=== PATIENT | female | born 1940 | race Caucasian/White ===

== ENCOUNTER 2016-06-29 06:14 | Day surgery (SDC) ==
[2015-08-06 12:17] VITALS: BMI 29.5
[2016-06-29] MEDS ORDERED: VERSED ONE (07:55)
[2016-06-29] MEDS ORDERED: DIPRIVAN 20 ML VIAL IVP ONE (07:55)
[2016-06-29 09:30] VITALS: BP 108/74; TEMP 98
--- NOTE | 2016-06-29 14:17 | OP ---
INDICATIONS FOR PROCEDURE: 75-year-old female presents for her first ever screening colonoscopy. She is also scheduled for endoscopy investigation of dysphagia. MEDICATIONS: SEE ANESTHESIA NOTES. PROCEDURE: 1 ENDOSCOPY WITH BIOPSY, MALAGASY DILATATION. 2. COLONOSCOPY, SNARE POLYPECTOMY REPORT: The risks, benefits, alternatives and limitations were discussed in detail with the patient. Informed consent was obtained. After adequate sedation was achieved, the video endoscope was introduced in the posterior pharynx and esophagus under direct vision. I easily advanced down to the second portion of the duodenum. I then slowly withdrew. The duodenal mucosa appeared unremarkable as did the duodenal bulb. The antrum and body were relatively unremarkable. The scope was retroflexed to look at the cardia and fundus which revealed a small hiatal hernia. The scope was anteflexed and withdrawn back through the esophagus. There is about a 2 cm hiatal hernia. In the distal esophagus there was a stricture at the GE junction and there was 2+ to 3+ esophageal inflammation. There were ulcerations, linear. This was biopsied for histological review. I advanced the scope back down the gastric lumen and I placed a guidewire. I then advanced a 48 Urdu [place] dilator. I met mild resistance. The patient tolerated the procedure well with stable vital signs and pulse oximetry throughout. The patient's bed was turned. A digital rectal exam revealed good tone, no masses. The colonoscope was introduced into the rectum, advanced under direct visual guidance to the cecum. The cecum was identified by the appendiceal orifice and IC valve. I then slowly withdrew the scope in a circumferential manner examining the mucosa quite carefully. I looked on the proximal and distal side of folds and flexures as best as possible. I retroflexed the scope in the right colon and left colon to increase visualization. In the cecum there is a diminutive polyp I destroyed by snare technique. In the ascending colon there were two polyps, one about 4 mm in size and the other one about 5 mm in size. They were removed by snare technique. The smaller one was destroyed. The slightly larger one was retrieved. In the proximal transverse colon there was a 6 mm slightly raised polyp that I removed by snare technique. This was retrieved. In the descending colon there is a 5 mm polyp that I removed by snare technique. It was not retrieved. At 15 cm there was a pedunculated 12 mm polyp that I removed by snare technique. This polyp was retrieved. No other abnormalities were noted other than small hemorrhoids on retroflex view of the anal canal. The prep was adequate. The withdrawal time was 16 minutes and 46 seconds. The patient tolerated the procedure well with stable vital signs and pulse oximetry throughout. IMPRESSION: 1. 2 TO 3+ REFLUX ESOPHAGITIS 2. DISTAL ESOPHAGEAL STRICTURE 3. SIX (6) COLON POLYPS REMOVED ABOVE 4. SMALL INTERNAL HEMORRHOIDS RECOMMENDATIONS: 1. Strict reflux precautions. 2. Daily PPI therapy. 3. Repeat endoscopy examination again in 3 months to assure resolution of the esophagitis and evaluate for Razo's and possible dilate further if indicated. 4. Await polyp pathology. If everything is benign as expected, I recommend repeat colonoscopy examination again in 3 years, sooner if signs or symptoms would indicate otherwise. 5. Office visit as needed. CC: DR. PATRICIA MARCH
== END 2016-06-29 10:00 | disposition home or self-care (01) ==
LOC: SURG 06:14
PROVIDERS: ATTEND Internal Medicine Gastroenterology
DX: Z12.11 Encounter for screening for malignant neoplasm of colon (principal); D12.2 Benign neoplasm of ascending colon; D12.3 Benign neoplasm of transverse colon; D12.7 Benign neoplasm of rectosigmoid junction; D13.0 Benign neoplasm of esophagus; R13.10 Dysphagia, unspecified; K21.0 Gastro-esophageal reflux disease with esophagitis; K44.9 Diaphragmatic hernia without obstruction or gangrene; K22.2 Esophageal obstruction; K64.8 Other hemorrhoids

== ENCOUNTER 2017-02-10 11:54 | Outpatient (CLI) ==
[2015-08-06 12:17] VITALS: BMI 29.5
--- NOTE | 2017-02-10 12:52 | DI ---
EXAM: Radiographs, lumbar spine HISTORY: Back pain. COMPARISON: Abdominal CT 04/12/2016. TECHNIQUE: Three views. FINDINGS: Left convex curvature centered near L3 noted. Alignment is normal. Vertebral body heigh ts are maintained. There is moderate to severe loss of disc height from L2-3 through L4-5. Multile trish endplate osteophyte formation and facet arthropathy noted. No fracture or subluxation detected. Sacral arcuate lines are intact. Atherosclerotic calcifications are present. IMPRESSION: 1. Left convex midlumbar curvature. 2. Moderate to severe degenerative disc disease. 3. Multilevel facet arthropathy.
--- NOTE | 2017-02-10 12:55 | DI ---
EXAM: Four views of the left knee HISTORY: Left knee pain with history of arthroplasties. COMPARISON: Right knee x-rays same day FINDINGS: Left knee arthroplasty changes are present. There is no loosening or hardware displacemen t. There is no displaced fracture or dislocation identified. Soft tissues are unremarkable. IMPRESSION: No acute abnormality of the left knee with no evidence of hardware loosening, abnormali ty or osseous fracture.
--- NOTE | 2017-02-10 12:59 | DI ---
EXAM: Radiographs, right knee HISTORY: Right knee pain. COMPARISON: None available. TECHNIQUE: Four views. FINDINGS: Right total knee arthroplasty hardware components appear well seated. No fracture or dis location identified. No localized soft tissue abnormality identified. IMPRESSION: No acute abnormality of the right knee.
== END 2017-02-10 11:55 | disposition home or self-care (01) ==
LOC: RAD 11:54
PROVIDERS: ATTEND Internal Medicine
DX: M54.9 Dorsalgia, unspecified (principal); M54.30 Sciatica, unspecified side; M79.606 Pain in leg, unspecified; M25.561 Pain in right knee; M25.562 Pain in left knee

== ENCOUNTER 2017-02-23 14:00 | Outpatient (RCR) ==
[2015-08-06 12:17] VITALS: BMI 29.5
--- NOTE | 2017-02-10 16:23 | RS.OPPTEV2 ---
Date of Note: 02/09/17 Visit #: 1 Date of Evaluation: 02/09/17 Payer Source: MEDICARE Treatment Diagnosis: LE weakness, recent falls History of Condition/Mechanism of Injury:: Patient reports having progressive weakness in her LE's. States she has fallen a few times inside and outside the home. Also reports progressive back pain. 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 No specific injuries to the legs or low back. Prior Level of Function.....Patient was independent with: ADL's, Self Care, Caregiving, Ambulation/Mobility, Community Integration/Access Functional Limitations: Standing, Ambulation, Community Access/Integration Current Subjective/complaints:: Patient reports she has weakness in the top of her thighs and the kness with give way. States the longer she stands or walks, the more her back hurts and LE's give weak. States approximately a week ago, she was attempting to walk across the street and her knees gave out and she fell in the middle of the street. States she has not tried an assistive device. Reports numbness and tingling in the feet. States she sometimes feels like she drags the left foot when she walks. States she has no tingling in the LE's prior to evaluation. States she usually is ok in sitting. Describes aching in the knees currently. States she is leaving the house less and less, because of having difficulty walking and fear of falling. Medical History Medical History: Hypertension Surgical History Comments:: Bilateral TKA Smoking Status: Never smoker Hx Home Medications: Gabapentin, Losartan, Bisoprolol Patient's Goals: Her goal is to gain strength in her legs and avoid falls. Pain Assessment - Pain Description Pain Location: Low back pain Current Pain Intensity: 9/10 Functional Outcome Measure LE Functional Scale: 27 (27/80=66.25% impairment) - G Codes & Severity Modifier G Codes & Modifier: Mobility current CL. Mobility goal CJ Source of G Code score: LE functional scale Observation - Observation Posture: Forward Head, Rounded Shoulders, Decreased Lumbar Lordosis Gait - Gait Pattern Gait Comments: Patient ambulates without an assistive device with a guarded gait. She demonstrates a narrow base of support and minimal clearance of either foot during swing phase. Demonstrtes no loss of balance during ambulation in the department. Sit to stand is independent, but appears difficult and cautious. General Range of Motion: Lumbar AROM is ~ 50% of normal range. Reports increased discomfort with extension. Bilateral LE AROM is WFL's. Muscle Strength: Trunk strength fair. Bilateral hip flexion 4 to 4+/5, quads and HS 4/5. Right ankle strength 4+/5, left ankle DF 3+ to -4/5, all else of left ankle 4/5. Sensation - Sensation Comments: Reports tingling along left medial ankle and foot. Additional Comments: Additional Comments: SLR bilaterally 30 degrees in supine. Interventions - Exercise/Activities/Manual Therapy Exercises/Activities: Patient given a straight cane to borrow for safety with ambulation. Instructed in proper usage. Patient instructed in sitting hip flexion and LAQ's for HEP. Manual Therapy: NA HOME EXERCISE PROGRAM: sitting hip flexion and LAQ's for HEP - Charges Total Direct Minutes: 55 mins Total Treatment Time: 55 mins Procedures billed for this date of service:: [facility] Assessment Assessment: Patient presents to therapy with a diagnosis of leg weakness. She reports recent falls due to progressive LE weakness when standing or walking. Also reports low back pain is increased with standing and walking. Demonstrates general weakness of bilateral LE's and trunk. Bilateral HS are significantly tight, increasing stress on the lumbar spine. She also exhibits sensory deficits in the left medial ankle and foot. She presents to have LE symptoms that are highly likely to be from the lumbar spine, such as with severe stenosis or spondylolisthesis. She will benefit from LE strengthening, along with HS stretching and trunk strengthening, to reduce her symptoms. She demonstrates good potential to gain strength, increased mobility, and decrease her risk for falls. Patient Education: Education of diagnosis, Body/Joint mechanics, Home Exercise Program, Home Safety, Activity Modification, Education of Plan of Care Rehab Potential: Good Short Term Goals Goal #1: Pt independent with HEP. Goal to be met by: 02/24/17 Goal #2: Bilateral SLR to 40 degrees in supine. Goal to be met by: 02/24/17 Goal #3: Bilateral hip flexion strength 4+/5 Goal to be met by: 02/24/17 Goal #4: Trunk strength improved to Fair +. 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 Goal to be met by: 03/22/17 Goal #3: Pt able to stand to perform ADL's with minimal back pain or LE symptoms. Goal to be met by: 03/22/17 Goal #4: Pt to amb. community distances with min. back pain and minimal difficulty. Goal to be met by: 03/22/17 Plan - Treatment to be Provided Procedures: Therapeutic Exercises, Therapeutic Activity, Patient Education Modalities: Electrical Stimulation, Ultrasound/Phonophoresis, Cryotherapy, Hot Packs - Treatment Plan Frequency: 2-3X week Duration: 4 weeks ORDER # VISITS AND/OR THROUGH DATE: 03/22/17 - Treatment Code (1) Leg weakness Qualifiers: Laterality: bilateral Qualified Description: Weakness of both lower extremities Qualifier Code(s): (R29.898) Other symptoms and signs involving the musculoskeletal system (2) Low back pain Qualifiers: Chronicity: unspecified Back pain laterality: bilateral Sciatica presence: unspecified whether sciatica present Qualified Description: Bilateral low back pain, unspecified chronicity, with sciatica presence unspecified Qualifier Code(s): (M54.5) Low back pain (3) History of recent fall Comments: Z91.81
--- NOTE | 2017-02-11 10:56 | RS.OPPTDN ---
Subjective Date of Note: 02/11/17 Visit #: 2 Date of Evaluation: 02/09/17 Payer Source: MEDICARE Treatment Diagnosis: LE weakness, recent falls Current Subjective/complaints:: Patient says that she is going to use her cane in community distances, but felt she did not need them here today. She says that her thighs feel very weak and hurt. She c/o pain more to the L low back than R. Pain Assessment - Pain Description Pain Location: Low back pain Current Pain Intensity: 10 - Treatment Modality: Electrical Stim Unattended (h) Parameters/Method Applied: hivolt 4 large pads controlled seperately @ 135-150 pk volts x 20 mins in supine to bilateral lumbar paraspinals Interventions - Exercise/Activities/Manual Therapy Exercises/Activities: Patient received passive bilateral hamstring and piriformis stretching, SKTC, trunk rotation x 4. Patient performs ball squeezes , alternate LE lift in hooklying. Total minutes of Exercise: 15 Manual Therapy: NA HOME EXERCISE PROGRAM: sitting hip flexion and LAQ's for HEP - Charges Total Direct Minutes: 15 Total Treatment Time: 35 Procedures billed for this date of service:: hp, estim (un), ex Assessment: Patient presents with independent amb shortened stride. She felt cane was not necessary today. She savanna modalities well. Patient required mod A with both LE's onto bed and with supine to sit. Patient demo very tight hamstrings bilaterally, moreso to the L. She has initiated HEP with muscle spasms that followed (at home). Patient Education: Education of diagnosis, Body/Joint mechanics, Home Exercise Program, Home Safety, Activity Modification, Education of Plan of Care Patient demonstrates compliance with HEP?: Yes Short Term Goals Goal #1: Pt independent with HEP. Goal to be met by: 02/24/17 Progress towards Goal:: Progressing Goal #2: Bilateral SLR to 40 degrees in supine. Goal to be met by: 02/24/17 Goal #3: Bilateral hip flexion strength 4+/5 Goal to be met by: 02/24/17 Goal #4: Trunk strength improved to Fair +. Goal to be met by: 02/24/17 Chief Strategy Officer Goals Goal #1: Pt knows HEP and to continue ex's to maintain functional level at D/C Goal to be met by: 03/22/17 Goal #2: Score on LE functional scale improved to <39% impairment. Goal to be met by: 03/22/17 Goal #3: Pt able to stand to perform ADL's with minimal back pain or LE symptoms. Goal to be met by: 03/22/17 Goal #4: Pt to amb. community distances with min. back pain and minimal difficulty. Goal to be met by: 03/22/17 Plan PLAN OF CARE EXPIRES ON:: 03/22/17 ORDER # VISITS AND/OR THROUGH DATE: 03/22/17 PLAN: Continue Plan of Care
--- NOTE | 2017-02-15 11:14 | RS.OPPTDN ---
Subjective Date of Note: 02/15/17 Visit #: 3 Date of Evaluation: 02/09/17 Payer Source: MEDICARE Treatment Diagnosis: LE weakness, recent falls Current Subjective/complaints:: Patient says she had some soreness to her legs after her last session. She asks if she can use a heating pad at home with exercises. Pain Assessment - Pain Description Pain Location: Low back pain Current Pain Intensity: 8/10 sore into R low back and leg - Treatment Modality: Electrical Stim Unattended Parameters/Method Applied: hivolt 4 large pads R side controlled seperately from L @ 165 pk volts to R and 150 to L x 20 mins Treatment Area: bilateral lumbar paraspinals Patient Position: Supine - Heat/Cryotherapy Treatment: Hot Pack (with estim) Interventions - Exercise/Activities/Manual Therapy Exercises/Activities: Patient received passive bilateral hamstring and piriformis stretching, SKTC, trunk rotation x 4. Patient performs ball squeezes , alternate LE lift in hooklying, isometric hip flexion and abd x 10. Total minutes of Exercise: 18 Manual Therapy: NA HOME EXERCISE PROGRAM: sitting hip flexion and LAQ's for HEP - Charges Total Direct Minutes: 18 Total Treatment Time: 38 Procedures billed for this date of service:: hp, estim (un), ex Assessment: Patient arrives with soreness across the low back, mainly to the R side affecting both knees (she indicates as joint ache). She appeared to savanna stretches well with only having general muscle fatigue with final activity ( isometric hip flexion). Patient Education: Education of diagnosis, Body/Joint mechanics, Home Exercise Program, Home Safety, Activity Modification, Education of Plan of Care Patient demonstrates compliance with HEP?: Yes Short Term Goals Goal #1: Pt independent with HEP. Goal to be met by: 02/24/17 Progress towards Goal:: Progressing Goal #2: Bilateral SLR to 40 degrees in supine. Goal to be met by: 02/24/17 Progress towards Goal:: Progressing Goal #3: Bilateral hip flexion strength 4+/5 Goal to be met by: 02/24/17 Goal #4: Trunk strength improved to Fair +. Goal to be met by: 02/24/17 Director Business Goals Goal #1: Pt knows HEP and to continue ex's to maintain functional level at D/C Goal to be met by: 03/22/17 Goal #2: Score on LE functional scale improved to <39% impairment. Goal to be met by: 03/22/17 Goal #3: Pt able to stand to perform ADL's with minimal back pain or LE symptoms. Goal to be met by: 03/22/17 Goal #4: Pt to amb. community distances with min. back pain and minimal difficulty. Goal to be met by: 03/22/17 Plan PLAN OF CARE EXPIRES ON:: 03/22/17 ORDER # VISITS AND/OR THROUGH DATE: 03/22/17 PLAN: Progress Exercises
--- NOTE | 2017-02-17 10:53 | RS.OPPTDN ---
Subjective Date of Note: 02/17/17 Visit #: 4 Date of Evaluation: 02/09/17 Payer Source: MEDICARE Treatment Diagnosis: LE weakness, recent falls Current Subjective/complaints:: Patient says she felt so good with her back and increased energy that she was able to bake. She reports that she barely noticed any back pain today. Pain Assessment - Pain Description Pain Location: Low back pain Current Pain Intensity: "I barely notice any pain in my back" - Treatment Modality: Electrical Stim Unattended Parameters/Method Applied: hivolt 4 large pads @ 175 pk volts x 20 mins to mid to lower lumbar parspinals. Patient Position: Supine - Heat/Cryotherapy Treatment: Hot Pack Interventions - Exercise/Activities/Manual Therapy Exercises/Activities: Patient received passive bilateral hamstring and piriformis stretching, SKTC, trunk rotation, Figure4 x 4. Patient performs ball squeezes, alternate LE lift in hooklying, isometric hip flexion and abd x 10. Initiated bridging 2x5. Total minutes of Exercise: 17 Manual Therapy: NA HOME EXERCISE PROGRAM: sitting hip flexion and LAQ's for HEP - Charges Total Direct Minutes: 17 Total Treatment Time: 37 Procedures billed for this date of service:: hp, estim (un), ex Assessment: Patient presents with decreased back pain allowing her to perform more functional activities at home and bake without expected pain. She has experienced increased energy at the start of the day, which she did not have previously. She is also demonstrating improved flexibility bilaterally regarding HS. Patient Education: Education of diagnosis, Body/Joint mechanics, Home Exercise Program, Home Safety, Activity Modification, Education of Plan of Care Patient demonstrates compliance with HEP?: Yes Short Term Goals Goal #1: Pt independent with HEP. Goal to be met by: 02/24/17 Progress towards Goal:: Progressing Goal #2: Bilateral SLR to 40 degrees in supine. Goal to be met by: 02/24/17 Progress towards Goal:: Progressing Goal #3: Bilateral hip flexion strength 4+/5 Goal to be met by: 02/24/17 Progress towards Goal:: Progressing Goal #4: Trunk strength improved to Fair +. Goal to be met by: 02/24/17 Senior Care Goals Goal #1: Pt knows HEP and to continue ex's to maintain functional level at D/C Goal to be met by: 03/22/17 Progress towards goal: Progressing Goal #2: Score on LE functional scale improved to <39% impairment. Goal to be met by: 03/22/17 Goal #3: Pt able to stand to perform ADL's with minimal back pain or LE symptoms. Goal to be met by: 03/22/17 Goal #4: Pt to amb. community distances with min. back pain and minimal difficulty. Goal to be met by: 03/22/17 Plan PLAN OF CARE EXPIRES ON:: 03/22/17 ORDER # VISITS AND/OR THROUGH DATE: 03/22/17 PLAN: Progress Exercises
--- NOTE | 2017-02-23 16:29 | RS.OPPTDN ---
Subjective Date of Note: 02/23/17 Visit #: 5 Date of Evaluation: 02/09/17 Payer Source: MEDICARE Treatment Diagnosis: LE weakness, recent falls Current Subjective/complaints:: Patient says she feels she is gaining strength, but says her back is bothering her today. 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 She says she does have some trouble with going up/down steps. Pain Assessment - Pain Description Pain Location: Low back pain - Treatment Modality: Electrical Stim Unattended Parameters/Method Applied: Hivolt 4 large pads @ 165 pk volts x 20 mins to bilateral lumbar paraspinals. Controlled seperately L from R. Patient Position: Supine - Heat/Cryotherapy Treatment: Hot Pack Interventions - Exercise/Activities/Manual Therapy Exercises/Activities: Patient received passive bilateral hamstring and piriformis stretching, SKTC, trunk rotation, Figure4 x 4. Patient performs ball squeezes, alternate LE lift in hooklying, isometric hip flexion and abd x 10. SAQ 1 1/2#, DF with red tband 2x10. Continued with bridging 2x5. Total minutes of Exercise: 22 Manual Therapy: NA HOME EXERCISE PROGRAM: sitting hip flexion and LAQ's for HEP - Charges Total Direct Minutes: 22 Total Treatment Time: 42 Procedures billed for this date of service:: hp, estim (un), ex Assessment: Patient remains with moderate back pain that is influencing her gait. She is having trouble with ascending/descending stairs at home. She was instructed in proper step sequencing, but will be demonstrating this at next visit with cueing if needed. Patient did have reduced pain to her back upon leaving today and appears more steady as a result. No signs of dizziness from patient and bed mobs (supine to sit) require only light hand held assistance from CORPORATE ETHICS OFFICER. Patient instructed in log rolling for home to improve supine to sit. Patient Education: Education of diagnosis, Body/Joint mechanics, Home Exercise Program, Home Safety, Activity Modification, Education of Plan of Care Patient demonstrates compliance with HEP?: Yes Short Term Goals Goal #1: Pt independent with HEP. Goal to be met by: 02/24/17 Progress towards Goal:: Progressing Goal #2: Bilateral SLR to 40 degrees in supine. Goal to be met by: 02/24/17 Progress towards Goal:: Progressing Goal #3: Bilateral hip flexion strength 4+/5 Goal to be met by: 02/24/17 Progress towards Goal:: Progressing Goal #4: Trunk strength improved to Fair +. Goal to be met by: 02/24/17 Hotel Front Desk Clerk Goals Goal #1: Pt knows HEP and to continue ex's to maintain functional level at D/C Goal to be met by: 03/22/17 Progress towards goal: Progressing Goal #2: Score on LE functional scale improved to <39% impairment. Goal to be met by: 03/22/17 Goal #3: Pt able to stand to perform ADL's with minimal back pain or LE symptoms. Goal to be met by: 03/22/17 Goal #4: Pt to amb. community distances with min. back pain and minimal difficulty. Goal to be met by: 03/22/17 Plan PLAN OF CARE EXPIRES ON:: 03/22/17 ORDER # VISITS AND/OR THROUGH DATE: 03/22/17 PLAN: Progress Exercises (Demo stair training next session with modalities to control and decrease back pain)
== END 2017-02-24 ==
PROVIDERS: ATTEND Internal Medicine
DX: M62.81 Muscle weakness (generalized) (principal)

== ENCOUNTER 2017-03-15 10:00 | Outpatient (RCR) ==
[2015-08-06 12:17] VITALS: BMI 29.5
--- NOTE | 2017-02-25 14:37 | RS.CXNS ---
Date of scheduled appointment: 02/25/17 Type: Cancel Reason for Cancel/NS: Patient says she cannot get her car started
--- NOTE | 2017-03-04 16:15 | RS.OPPTDN ---
Subjective Date of Note: 03/04/17 Visit #: 7 Date of Evaluation: 02/09/17 Payer Source: MEDICARE Treatment Diagnosis: LE weakness, recent falls Current Subjective/complaints:: Patient says she still has stiffness and elevated pain to the low back, mostly focused at the L LB. She says she had to work everyday last week at the [employer] and has to sit with a client tomorrow also. Pain Assessment - Pain Description Pain Location: Low back pain Current Pain Intensity: elevated pain and stiffness to the knees and back - Treatment Modality: Ultrasound Parameters/Method Applied: continuous @ 1.6 w/cm2 x 12 mins to L lumbar paraspinals mostly, then to R Patient Position: Right Sidelying - Heat/Cryotherapy Treatment: Hot Pack (x 15 mins to low back in supine) Interventions - Exercise/Activities/Manual Therapy Exercises/Activities: Patient performs: QS, SAQ 2 1/2#, DF with green tband, ball squeezes, isometric hip abd, 2 1/2# each LE alternate lift 2x10. Patient educated about these exercises at home and using hands to push off from bed. Total minutes of Exercise: 16 Manual Therapy: NA HOME EXERCISE PROGRAM: sitting hip flexion and LAQ's for HEP - Charges Total Direct Minutes: 28 Total Treatment Time: 43 Procedures billed for this date of service:: hp, u/s, ex Assessment: Patient's treatment was modified from estim to u/s to verify any improvement with pain. She has had unchanged pain and stiffness all this week. She admitted improved symptoms following u/s today. She should benefit from further modalities and therex next week. Patient Education: Body/Joint mechanics, Home Exercise Program Short Term Goals Goal #1: Pt independent with HEP. Goal to be met by: 02/24/17 Progress towards Goal:: Progressing Goal #2: Bilateral SLR to 40 degrees in supine. Goal to be met by: 02/24/17 Progress towards Goal:: Progressing Goal #3: Bilateral hip flexion strength 4+/5 Goal to be met by: 02/24/17 Progress towards Goal:: Progressing Goal #4: Trunk strength improved to Fair +. Goal to be met by: 02/24/17 Electrical Accessories I Assembler Goals Goal #1: Pt knows HEP and to continue ex's to maintain functional level at D/C Goal to be met by: 03/22/17 Progress towards goal: Progressing Goal #2: Score on LE functional scale improved to <39% impairment. Goal to be met by: 03/22/17 Goal #3: Pt able to stand to perform ADL's with minimal back pain or LE symptoms. Goal to be met by: 03/22/17 Goal #4: Pt to amb. community distances with min. back pain and minimal difficulty. Goal to be met by: 03/22/17 Plan PLAN OF CARE EXPIRES ON:: 03/22/17 ORDER # VISITS AND/OR THROUGH DATE: 03/22/17 PLAN: Progress Exercises (continue with u/s)
--- NOTE | 2017-03-04 16:18 | RS.OPPTDN ---
Subjective Date of Note: 03/02/17 Visit #: 6 Date of Evaluation: 02/09/17 Payer Source: MEDICARE Treatment Diagnosis: LE weakness, recent falls Current Subjective/complaints:: Patient says she is hurting in her knees and back today. She says that she is unsure why. She says she is using her cane at home, but encouraged her to use it more out in the community (as she is unsteady walking to our department.) Pain Assessment - Pain Description Pain Location: Low back pain Current Pain Intensity: elevated pain to the knees and back - Treatment Modality: Electrical Stim Unattended Parameters/Method Applied: bilateral lumbar paraspinals and superior glutes hivolt 4 large pads @ 145 pk volts x 20 mins Patient Position: Supine - Heat/Cryotherapy Treatment: Hot Pack Interventions - Exercise/Activities/Manual Therapy Exercises/Activities: Patient received passive bilateral hamstring and piriformis stretching, SKTC, trunk rotation, Figure4 x 4. Patient performs ball squeezes, alternate LE lift in hooklying, isometric hip flexion and abd x 10. SAQ 1 1/2#, DF with red tband 2x10. Continued with bridging 2x5. Total minutes of Exercise: 16 Manual Therapy: NA HOME EXERCISE PROGRAM: sitting hip flexion and LAQ's for HEP - Charges Total Direct Minutes: 16 Total Treatment Time: 36 Procedures billed for this date of service:: hp, estim (un), ex Assessment: Patient remains with moderate pain and stiffness limiting her gait. She was encouraged to use her cane to assist with pain. May modify treatment to u/s next session. Patient Education: Home Exercise Program Patient demonstrates compliance with HEP?: Yes Short Term Goals Goal #1: Pt independent with HEP. Goal to be met by: 02/24/17 Progress towards Goal:: Progressing Goal #2: Bilateral SLR to 40 degrees in supine. Goal to be met by: 02/24/17 Progress towards Goal:: Progressing Goal #3: Bilateral hip flexion strength 4+/5 Goal to be met by: 02/24/17 Progress towards Goal:: Progressing Goal #4: Trunk strength improved to Fair +. Goal to be met by: 02/24/17 Half-Way Goals Goal #1: Pt knows HEP and to continue ex's to maintain functional level at D/C Goal to be met by: 03/22/17 Progress towards goal: Progressing Goal #2: Score on LE functional scale improved to <39% impairment. Goal to be met by: 03/22/17 Goal #3: Pt able to stand to perform ADL's with minimal back pain or LE symptoms. Goal to be met by: 03/22/17 Goal #4: Pt to amb. community distances with min. back pain and minimal difficulty. Goal to be met by: 03/22/17 Plan PLAN OF CARE EXPIRES ON:: 03/22/17 ORDER # VISITS AND/OR THROUGH DATE: 03/22/17 PLAN: Progress Exercises (may change to u/s next session)
--- NOTE | 2017-03-08 10:47 | RS.CXNS ---
Date of scheduled appointment: 03/08/17 Type: No Show Reason for Cancel/NS: poss schedule mistake
--- NOTE | 2017-03-10 15:02 | RS.OPPTDN ---
Subjective Date of Note: 03/10/17 Visit #: 8 Date of Evaluation: 02/09/17 Payer Source: MEDICARE Treatment Diagnosis: LE weakness, recent falls Current Subjective/complaints:: Patient says that her pain has been more the past few days. She says she forgot her session earlier this week due to sister coming in from [place]. 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 But, patient does say she feels U/s did help after her last session. Pain Assessment - Pain Description Pain Location: Low back pain Current Pain Intensity: elevated pain to the knees and back - Treatment Modality: Ultrasound Parameters/Method Applied: continuous @ 1.6 w/cm2 x 12 mins to the L lumbar paraspinals and L superior glut. - Heat/Cryotherapy Treatment: Hot Pack (20 mins to the L lumbar and glut in sidelying) Interventions - Exercise/Activities/Manual Therapy Exercises/Activities: Patient received passive bilateral hamstring and piriformis stretching, SKTC, trunk rotation, Figure4 x 4. Patient performs ball squeezes, alternate LE lift in hooklying, isometric hip flexion and abd x 10. SAQ 1 1/2#, DF with red tband 2x10. Continued with bridging 2x5. 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 She has had elevated pain to her back and at times (with prolonged amb/standing) pain will travel to the L thigh/knee. She recalls improved pain with changing treatment to u/s last session and today. She remains with tight L HS, but is now using her straight cane to/from PT for support. Patient Education: Education of diagnosis, Body/Joint mechanics, Home Exercise Program, Home Safety, Activity Modification, Education of Plan of Care Patient demonstrates compliance with HEP?: Yes (partially) Short Term Goals Goal #1: Pt independent with HEP. Goal to be met by: 02/24/17 Progress towards Goal:: Progressing Goal #2: Bilateral SLR to 40 degrees in supine. Goal to be met by: 02/24/17 Progress towards Goal:: Progressing Goal #3: Bilateral hip flexion strength 4+/5 Goal to be met by: 02/24/17 Progress towards Goal:: Progressing Goal #4: Trunk strength improved to Fair +. Goal to be met by: 02/24/17 Tree Warden Goals Goal #1: Pt knows HEP and to continue ex's to maintain functional level at D/C Goal to be met by: 03/22/17 Progress towards goal: Progressing Goal #2: Score on LE functional scale improved to <39% impairment. Goal to be met by: 03/22/17 Goal #3: Pt able to stand to perform ADL's with minimal back pain or LE symptoms. Goal to be met by: 03/22/17 Goal #4: Pt to amb. community distances with min. back pain and minimal difficulty. Goal to be met by: 03/22/17 Plan PLAN OF CARE EXPIRES ON:: 03/22/17 ORDER # VISITS AND/OR THROUGH DATE: 03/22/17 PLAN: Progress Exercises
--- NOTE | 2017-03-15 10:52 | RS.CSNOTE ---
PT Case Note Date of Note: 03/15/17 Title of document: Hold Note: Patient presents to department today reporting her pain is getting worse and she feels like she is worse in general. States she was in bed most of the weekend due to pain and weakness. Patients Lower Extremity Functional Scale score has marked decrease to 7/80 or 91.25% impairment today (was 27/80 or 66.25 % on Eval). Physicians office was contacted and patient was told to go directly to office to be seen by physician. Patient will be on hold at this time.
[2017-03-18 15:47] VITALS: BMI 28.3
== END 2017-03-26 ==
PROVIDERS: ATTEND Internal Medicine
DX: R53.1 Weakness (principal)

== ENCOUNTER 2017-03-15 12:35 | Inpatient (IN) | payer OTHER ==
[2017-03-15] MEDS ORDERED: TORADOL IVP PRN (13:06)
[2017-03-15] MEDS ORDERED: DECADRON 4 MG/ML SDV IVP STA (13:07)
[2017-03-15 13:21] VITALS: BMI 28.5
[2017-03-15] MEDS ORDERED: TORADOL IVP SCH (13:30)
[2017-03-15 13:32] LABS: BASOPHILS % (AUTO) 0.6 % (0.0-3.0); EOSINOPHILS # (AUTO) 0.1 K/ul (0.0-0.7); EOSINOPHILS % (AUTO) 2.2 % (0.0-7.0); HEMATOCRIT 35.9 % (37.0-47.0); HEMOGLOBIN 12.2 g/dl (12.0-16.0); IMMATURE GRANULOCYTE % (AUTO) 0.2 % (0.0-5.0); LYMPHOCYTES # (AUTO) 1.8 K/uL (0.60-3.4); LYMPHOCYTES % (AUTO) 27.3 (10.0-50.0); MEAN CORPUSCULAR HEMOGLOBIN 30.3 pg (27.0-31.0); MEAN CORPUSCULAR VOLUME 89.3 fl (81.0-99.0); MONOCYTES # (AUTO) 0.5 K/uL (0.4-2.0); MONOCYTES % (AUTO) 7.2 (0-10); NEUTROPHILS # (AUTO) 4.1 K/ul (2.0-6.9); NEUTROPHILS % (AUTO) 62.5; PLATELET COUNT 177 10^3/uL (140-440); RED BLOOD COUNT 4.02 10^6/ul (4.20-5.40); WHITE BLOOD COUNT 6.49 K/ul (4.6-10.2)
[2017-03-15 15:35] LABS: ALBUMIN 3.7 g/dL (3.4-5.0); ALBUMIN/GLOBULIN RATIO 1.06; BILIRUBIN,TOTAL 0.35 mg/dL (0.00-1.20); BUN/CREATININE RATIO 19.12; CALCIUM 9.3 mg/dL (8.2-10.2); CREATININE 1.83 mg/dL (0.60-1.30); TOTAL PROTEIN 7.2 g/dL (5.8-8.1)
[2017-03-15 15:39] LABS: BILIRUBIN,URINE Negative (NEGATIVE); KETONES,URINE Trace (NEGATIVE); LEUKOCYTE ESTERASE ,URINE 1+ (NEGATIVE); NITRITE,URINE Positive (NEGATIVE); PH,URINE 5.5 (5-9); PROTEIN,URINE 1+ (NEGATIVE); URINE, BLOOD 2+ (NEGATIVE)
[2017-03-15 15:47] LABS: ADD URINE MICROSCOPIC YES
[2017-03-15 15:48] LABS: BACTERIA,URINE 3+ (NOT PRESENT)
[2017-03-15] MEDS ORDERED: DILAUDID 2 MG/ML SYRINGE IM PRN (17:37)
[2017-03-15] MEDS ORDERED: DILAUDID 2 MG/ML SYRINGE ONE (17:46)
[2017-03-15] MEDS ORDERED: DILAUDID 2 MG/ML SYRINGE IVP PRN (17:49)
[2017-03-15] MEDS: NEURONTIN PO SCH (21:27)
[2017-03-15] MEDS: DESYREL PO SCH (21:27)
[2017-03-15] MEDS: TORADOL IVP SCH (21:28)
[2017-03-16 05:01] LABS: HEMATOCRIT 34.6 % (37.0-47.0); HEMOGLOBIN 11.8 g/dl (12.0-16.0); IMMATURE GRANULOCYTE % (AUTO) 0.4 % (0.0-5.0); LYMPHOCYTES # (AUTO) 0.7 K/uL (0.60-3.4); LYMPHOCYTES % (AUTO) 14.6 (10.0-50.0); MEAN CORPUSCULAR HEMOGLOBIN 29.9 pg (27.0-31.0); MEAN CORPUSCULAR HGB CONC 34.1 (31.8-35.4); MEAN CORPUSCULAR VOLUME 87.8 fl (81.0-99.0); MONOCYTES # (AUTO) 0.1 K/uL (0.4-2.0); MONOCYTES % (AUTO) 1.5 (0-10); NEUTROPHILS # (AUTO) 3.9 K/ul (2.0-6.9); NEUTROPHILS % (AUTO) 83.5; PLATELET COUNT 171 10^3/uL (140-440); RED BLOOD COUNT 3.94 10^6/ul (4.20-5.40); WHITE BLOOD COUNT 4.72 K/ul (4.6-10.2)
[2017-03-16 05:20] LABS: ALBUMIN 3.5 g/dL (3.4-5.0); ALBUMIN/GLOBULIN RATIO 1.09; BILIRUBIN,TOTAL 0.31 mg/dL (0.00-1.20); BUN/CREATININE RATIO 22.92; CALCIUM 9.3 mg/dL (8.2-10.2); CREATININE 1.57 mg/dL (0.60-1.30); TOTAL PROTEIN 6.7 g/dL (5.8-8.1)
[2017-03-16] MEDS: PROTONIX PO SCH (05:39)
[2017-03-16] MEDS: TORADOL IVP SCH ×3 (05:40→20:49)
--- NOTE | 2017-03-16 08:21 | DI ---
Exam: Chest two-view HISTORY: Coughing. Comparison: 04/12/2016. FINDINGS: Two views of the chest demonstrate moderately expanded lungs with no evidence of pneumonia or edema. Right apical pleural parenchymal thickening is again noted.The heart is normal in size an d configuration. The thoracic aorta is partially calcified. Calcified granulomata are noted. The pu lmonary vasculature is not congested. The skeletal structures are intact. There are degenerative fin dings in the spine. IMPRESSION: No acute cardiopulmonary disease. Atherosclerosis and prior granulomatosis.
[2017-03-16] MEDS: ASPIRIN CHEWABLE PO SCH (08:57)
[2017-03-16] MEDS: LEXAPRO PO SCH (08:58)
[2017-03-16] MEDS: HYDROCHLOROTHIAZIDE PO SCH (08:58)
[2017-03-16] MEDS: COZAAR PO SCH (08:59)
[2017-03-16] MEDS: ZEBETA PO SCH (08:59)
[2017-03-16] MEDS ORDERED: LIPITOR PO SCH (09:00)
[2017-03-16] MEDS ORDERED: DECADRON 4 MG/ML SDV IVP ONE (09:00)
[2017-03-16] MEDS ORDERED: NON-FORMULARY MEDICATION (Losartan/Hydrochlorothiazide [Hyzaar 100-12.5 Tablet] 1 EACH) PO SCH ×22 (09:00)
--- NOTE | 2017-03-16 11:12 | PCM.PROG ---
Attending Provider: ATTENDING PROVIDER: Dr. YUE GOMEZ DATE OF SERVICE: 03/16/17 SUBJECTIVE: This 76 year old WHITE/ F was hospitalized 03/15/17. The patient is hospitalized with bilateral sciatica type of pain with leg weakness. The patient still has pain rated as 2 to 9 on a scale of 1 to 10. The patient has mild depression and is teary with any conversation related to back problems, which according to son has been going on for a few months and now to the point she is unable to ambulate without a walker and even with walker is unsteady. REVIEW OF SYSTEMS: CONSTITUTIONAL: No night sweats. No fatigue, malaise, lethargy. No fever or chills. HEENT: Eyes: No visual changes. No eye pain. No eye discharge. ENT: No runny nose. No epistaxis. No sinus pain. No odynophagia. No congestion. RESPIRATORY: No cough, no congestion. No hemoptysis. No shortness of breath. CARDIOVASCULAR: No angina symptoms. No CHF symptoms. No atypical chest pain for CAD. No palpitations. No orthopnea.. GASTROINTESTINAL: No abdominal pain. No nausea or vomiting. No diarrhea or constipation. No hematemesis. No hematochezia. GENITOURINARY: No urgency. No frequency. No dysuria. No hematuria. No obstructive symptoms. No discharge. No pain. No significant abnormal bleeding. MUSCULOSKELETAL: Sciatic type pain and weakness. NEUROLOGICAL: Awake, alert, oriented to time, place and person. No headache. No neck pain. No syncope. No seizures. No dizziness. PSYCHIATRIC: Not anxious. Mild depression. No suicidal thoughts. No homicidal thoughts. SKIN: No rash. No lesions. No wounds. ENDOCRINE: No unexplained weight loss. No weight gain. HEMATOLOGIC/LYMPHATIC: No anemia. No purpura. No petechiae. No prolonged or excessive bleeding. No palpable lymph nodes. PHYSICAL EXAMINATION: GENERAL: The patient is awake, alert and oriented, lying in bed in no distress. VITAL SIGNS: Temperature 97.7 F, Pulse 55, Respiratory Rate 16, BP 157/70, Pulse Ox 97% HEENT: Head normocephalic, atraumatic. Eyes: Extraocular muscles are intact. Pupils are equal, round and reactive to light and accommodation. Ears: No lesions. Nose appeared normal. Throat: No exudate or erythema. NECK: Supple. No JVD, no carotid bruit. No lymphadenopathy or thyromegaly. LUNGS: Clear to auscultation. Percussion note normal. Chest symmetrical. HEART: S1, S2, no S3. No murmurs. No cyanosis or clubbing. No ascites. Pulses: Dorsalis pedis and posterior tibial pulses +1 to +2 both sides. ABDOMEN: Soft. Non-tender. Bowel sounds active. No CVA tenderness. No mass felt. EXTREMITIES: No edema. Full range of motion of all extremities, equal. NEUROLOGIC: No focal deficit. Cranial nerves II through XII are grossly intact. No headache, no double vision or headache. SKIN: Not dry. Intact. Turgor-normal. LYMPHATIC: No palpable lymph nodes/no lymphedema. MUSCULOSKELETAL: Normal joints with no swelling. Muscle tone is normal. LAB REVIEW: 03/16/17 04:50 03/16/17 04:50 03/16/17 04:50: Sodium 134 L, Potassium 4.0, Chloride 103, Carbon Dioxide 22 L, Anion Gap 13.0, BUN 36 H, Creatinine 1.57 H, Estimated GFR (MDRD) 32.00, BUN/ Creatinine Ratio 22.92, Glucose 132 H, Calcium 9.3, Total Bilirubin 0.31, AST 13 L, ALT 13, Alkaline Phosphatase 76, Total Protein 6.7, Albumin 3.5, Globulin 3.2, Albumin/Globulin Ratio 1.09 03/16/17 04:50: WBC 4.72, RBC 3.94 L, Hgb 11.8 L, Hct 34.6 L, MCV 87.8, MCH 29.9 , MCHC 34.1, RDW Coeff of [place] 12.2, Plt Count 171, Immature Gran % (Auto) 0.4, Neut % (Auto) 83.5, Lymph % (Auto) 14.6, [place] % (Auto) 1.5, Eos % (Auto) 0.0, Baso % (Auto) 0.0, Immature Gran # (Auto) 0.0, Neut # 3.9, Lymph # 0.7, [place] # 0.1 L, Eos # 0.0, Baso # 0.0 03/15/17 13:50: Urine Color Yellow, Urine Clarity Cloudy, Urine pH 5.5, Ur Specific [place] 1.025, Urine Protein 1+, Urine Glucose (UA) Negative, Urine Ketones Trace, Urine Blood 2+, Urine Nitrite Positive, Urine Bilirubin Negative , Urine Urobilinogen 0.2, Ur Leukocyte Esterase 1+, Urine Microscopic RBC 10-20 , Urine Microscopic WBC 30-50, Ur Squamous Epith Cells Not present, Urine Bacteria 3+, Urine Mucus 2+ 03/15/17 13:26: Sodium 138, Potassium 4.0, Chloride 105, Carbon Dioxide 24, Anion Gap 13.0, BUN 35 H, Creatinine 1.83 H, Estimated GFR (MDRD) 27.00, BUN/ Creatinine Ratio 19.12, Glucose 108, Calcium 9.3, Total Bilirubin 0.35, AST 14 L , ALT 14, Alkaline Phosphatase 84, Total Protein 7.2, Albumin 3.7, Globulin 3.5 , Albumin/Globulin Ratio 1.06, TSH 1.983 03/15/17 13:26: WBC 6.49, RBC 4.02 L, Hgb 12.2, Hct 35.9 L, MCV 89.3, MCH 30.3, MCHC 34.0, RDW Coeff of [place] 12.4, Plt Count 177, Immature Gran % (Auto) 0.2, Neut % (Auto) 62.5, Lymph % (Auto) 27.3, [place] % (Auto) 7.2, Eos % (Auto) 2.2, Baso % (Auto) 0.6, Immature Gran # (Auto) 0.0, Neut # 4.1, Lymph # 1.8, [place] # 0.5, Eos # 0.1, Baso # 0.0 ASSESSMENT: 1. Bilateral sciatica awaiting report from MRI 2. Continue steroids and antiinflammatories PLAN: 1. Continue steroids and antiinflammatories Plan and coordination of the patient's care discussed in the presence of Rn Unit Manager and nurse. CONDITION: Stable SCRIBED BY: YANA HAZEL, Fast Food Server scribed while in presence of service performed by Dr. YUE GOMEZ on 03/16/17 ([id number])
--- NOTE | 2017-03-16 14:26 | RS.OTINEVL ---
Subjective - Patient information Date of Evaluation: 03/16/17 Date of Arrival on Unit: 03/15/17 Usual Living Arrangement: Alone Living Arrangement Comments: Lives at home alone in town. Home Environment: House Medical History: Hypertension Medical History Comments:: Bilateral sciatic pain with left leg weakness, fell in bathroom, DVT/PE, DNR, appendectomy, diverticulosis, UTI, depression, psych. disorder, total hysterectomy, alcohol occas., Surgical History: Knee Replacement, Hysterectomy Surgical History Comments:: bilateral mastectomy, Appendectomy, bilateral TKA, hysterectomy Subjective Information/ Patient Comments:: My and then my brothers moved me down here thinking they would take care of me. Now my legs don't work. They are jumping. I got a shot." - Level of function Current Equipment Used at Home: standard cane Pain Assessment - Pain Pain Score: 4 Side: bilateral Pain Location Body Site: leg weakness and pain Pain Aggravating Factors: ADL's, Changing Position, Sitting Pain Alleviating Factors: Ice, Medication, Position Change Interventions - Objective Patient Orientation: Person, Place, Time, Situation Current Interventions: IV's Observation: Pt appears depressed and is weak in BUE. Pt would benefit from skilled OT to increase independence of self care management. Interventions - ROM Right Upper Extremity AROM: WFL's Left Upper Extremity AROM: WFL's - Strength Right Upper Extremity Strength: Mild Weakness Left Upper Extremity Strength: Mild Weakness - Sensation Right Upper Extremity Sensation: Intact/Normal Left Upper Extremity Sensation: Intact/Normal Balance - Sitting Balance Static Sitting Balance: Normal Dynamic Sitting Balance: Normal - Standing Balance Static Standing Balance: Fair Dynamic Standing Balance: Poor - Comments Balance Assessment Comments: Pt has difficulty with balance and movement of BLE during transfers. ADL Skills - Self Feeding Self Feeding: Independent - Grooming Grooming: Set Up Only - Bathing Bathing UE: Set Up Only Bathing LE: Min Assist - Dressing Dressing UE: Set Up Only Dressing LE: Min Assist - Toilet Management Toileting Management: Mod Assist, Max Assist, 2 person assist Functional Mobility - Bed Mobility Rolling R/L: Min Assist Scooting: CGA Supine to Sit: Mod Assist Sit to Supine: Mod Assist - Transfers Sit to Stand: Mod Assist, 2 person assist - Ambulation Weight Bearing Status: FWB Assistive Device Used: Rolling Walker Assistance needed with Ambulation: Mod Assist, 2 person assist - Safety Awareness Safety Awareness: Good Additional Treatment Performed - Time with patient Total treatment time: 27 Activities Patient Interests:: Watching Television Patient Education Patient Education: Education of diagnosis, Home Exercise Program, Home Safety, Education of Plan of Care Teaching Recipient: Patient Teaching Methods: Discussion, Demonstration Assessment Problem List:: Decreased level of function, Requires training/education, Decreased safety/Risk of falls, Weakness, Pain limits previous level of function Rehab Potential: Good Further Therapy Indicated?: Yes Short Term Goals - Goals GOAL 1: Pt to be Minimal assist with transfers with rolling Walker. Goal to be met by: 03/23/17 GOAL 2: Pt to tolerate sink level ADLS Minimal assistance with RW. Goal to be met by: 03/23/17 GOAL 3: Pt to increase activity tolerance to 15 minutes. Goal to be met by: 03/23/17 Cut Off Saw Operator Goals GOAL 1: Pt to be CGA assist with transfers with rolling Walker. Goal to be met by: 03/30/17 GOAL 2: Pt to tolerate sink level ADLS SUP assistance with RW. Goal to be met by: 03/30/17 GOAL 3: Pt to be independent with ADLS as in PLOF. Goal to be met by: 03/30/17 Plan Plan of Care: Therapeutic EX, Neuromuscular Re-Educ, Therapeutic Activity, Self- Care/Home Management Modalities: Cold Pack/Cryotherapy Frequency of Treatment: 1-2 X day, as tolerated Duration of Treatment: 2 Weeks Anticipated Discharge Destination: Home
--- NOTE | 2017-03-16 15:59 | MRI ---
EXAM: Lumbar spine MRI without contrast. HISTORY: Bilateral sciatica. COMPARISON: Lumbar spine radiographs 02/10/[address] abdomen and pelvis 04/12/2016. TECHNIQUE: Multiplanar, multisequence MR images were acquired of the lumbar spine without contrast. FINDINGS: Five non-rib bearing lumbar vertebra present. There is mild to moderate 27 degrees thorac olumbar levoscoliosis centered at L2-3 and there is 3 mm leftward translation of L3 with respect to L 2, 1 cm rightward translation of L4 with respect to L3 and 2 mm rightward translation of L5 with resp ect to L4. There is mild chronic flattening of the right lateral superior endplate of L3 and mild ch ronic flattening of the L5 superior endplate. There is mild loss of the usual usual smooth lumbar lo rdosis with 3 mm retrolisthesis of L1 on L2 and L2 on L3 and 2 mm anterolisthesis of L3 on L4. Intri nsic bone marrow signal is normal. Benign intraosseous hemangiomas are present at L3 and L4. There is desiccation of the intervertebral discs from T10-11 to L4-5 and there is vacuum phenomenon from L1 -2 to L4-5 with small chronic Schmorl's nodes from L2 to L5. There is osteophytosis with moderate to marked disc space narrowing and mild to moderate endplate irregularity that is greatest right latera lly at L2-3 and L3-4 and left laterally at L4-5. Conus medullaris ends at L1-2 and has the normal co nfiguration and signal intensity. The partially visualized liver and spleen are unremarkable. 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 There is mild r ight pelvocaliectasis. There is minor left renal upper pole caliectasis and a small extrarenal pelvi s. There are no paravertebral masses. L1-2: There is retrolisthesis of L1 on L2 and there is a diffuse disc bulge and mild bilateral hypert rophic facet arthropathy and ligamentum flavum hypertrophy. There is mild to moderate bilateral fora lawrence stenosis. There is no central canal stenosis. L2-3: There is retrolisthesis of L2 on L3 and there is a diffuse disc bulge that is asymmetric to th e right with right far endplate osteophytes. This effaces the right lateral recess where it may adve rsely contact the right L3 nerve roots and narrows the inferior right neural foramen with encroachmen t on the exiting right L2 nerve. Mild to moderate bilateral hypertrophic facet arthropathy and ligam entum flavum hypertrophy is present. There is right lateral recess stenosis and mild left and mild t o moderate right neural foraminal stenosis. There is no central canal stenosis. L3-4: There is anterolisthesis of L3 on L4 and there is a disc bulge/pseudo disc bulge that is asymm etric to the right with moderate right far endplate osteophytes. Moderate bilateral hypertrophic fac et arthropathy and ligamentum flavum hypertrophy is present. There is triangulation of the thecal sa c, bilateral lateral recess stenosis and mild left and moderate right neural foraminal stenosis with encroachment on the right L3 nerve. L4-5: There is a diffuse disc osteophyte complex that is asymmetric to the left which effaces the ve ntral thecal sac and narrows the inferior neural foramina bilaterally, greater on the left with encro achment on the exiting left L4 nerve. Bilateral hypertrophic facet arthropathy and ligamentum flavum hypertrophy is present. There is triangulation of the thecal sac and mild right and moderate left n eural foraminal stenosis. L5-S1: There is a minor disc bulge and mild bilateral hypertrophic facet arthropathy without foramin al stenosis or central canal stenosis. IMPRESSION: 1. 27 degrees thoracolumbar levoscoliosis centered at L2-3. 2. Moderate multilevel lumbar degenerative spondylosis without spinal stenosis. 3. Multilevel foraminal stenosis. 4. Partially duplicated right kidney, collecting systems and proximal ureters which cannot be follow ed distally. CT urography could better define the anatomy.
--- NOTE | 2017-03-16 16:23 | RS.PTINEVL ---
Subjective - Patient information Date of Evaluation: 03/16/17 Date of Arrival on Unit: 03/15/17 Admitted From:: Home Usual Living Arrangement: Alone Living Arrangement Comments: Lives at home alone in town. Significant other states that she may go home with him and he has a ramp. Patient has 3 steps to enter home at her home. Home Environment: House, Stairs (few) (3 steps at her home.) Medical History: Hypertension Medical History Comments:: Bilateral sciatic pain with left leg weakness, fell in bathroom, DVT/PE, DNR, appendectomy, diverticulosis, UTI, depression, psych. disorder, total hysterectomy, alcohol occas., LATEX ALLERGY?: No Surgical History: Knee Replacement, Hysterectomy Surgical History Comments:: bilateral mastectomy, Appendectomy, bilateral TKA, hysterectomy Subjective Information/ Patient Comments:: Patient states that she began falling about a month ago and back pain began at that time. She states her legs "give way". 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.) Current Level of Function: Partially Dependent Current Equipment Used at Home: standard cane Pain Assessement - Location Lower Back Description: Radiating, Aching Intensity: 4 Radiation Location: low back radiating into LLE Pain Behavior: Guarding, Facial Grimacing Pain Aggravating Factors: Changing Position, Exercise/Activity, Standing, Walking Pain Alleviating Factors: Ice, Heat, Medication, Exercise Effects of Pain: limiting ADL's as well as sleep, gait Interventions - Objective Patient Orientation: Person, Place, Time, Situation Range of Motion - ROM Right Upper Extremity AROM: WFL's Left Upper Extremity AROM: WFL's Right Lower Extremity AROM: WFL's Left Lower Extremity AROM: WFL's Comments:: with pain BLE Muscle Strength - Muscle Strength Comments:: BUE 4-/5, BLE hip flex 3+/5, knee flex/ext 3+/5, ankle Df/PF 4-/5 with pain BLE Sensation - Sensation Comments: equal and intact to light touch, radiating pain into LLE Palpation Palpation Findings: Tenderness, Muscle Guarding Comments:: lower lumbar area Balance - Sitting Balance and Reactions Static Sitting Balance: Good Dynamic Sitting Balance: Fair - Standing Balance and Reactions Static Standing Balance: Fair Dynamic Standing Balance: Fair - Comments Balance Assessment Comments: Tinetti score: 01/21 Functional Mobility - Bed Mobility Rolling R/L: Min Assist Scooting: Min Assist Sit to Supine: Min Assist - Transfers Sit to Stand: Min Assist Ambulation - Ambulation Assistive Device Used: Rolling Walker Orthotic/Prosthetic Device: No Distance: 10ft Assistance needed with Ambulation: Min Assist Gait Deviations: Forward posture Treatment time - Time with patient Total treatment time: 30 Patient Education - Education Patient Education: Education of diagnosis, Body/Joint mechanics Teaching Recipient: Patient Teaching Methods: Discussion, Demonstration Assessment - Assessment Problem List:: Decreased level of function, Requires training/education, Decreased safety/Risk of falls, Weakness, Pain limits previous level of function Rehab Potential: Good Further Therapy Indicated?: Yes Short Term Goals GOAL #1: pt to rate pain <4/10 with activity. Goal to be met by: 03/18/17 GOAL #2: pt transfer sup to/from sit to/from stand SBA with no increased pain Goal to be met by: 03/18/17 GOAL #3: pt amb with rwx 100ft with no loss of balance with CGA x 1. Goal to be met by: 03/18/17 In Flight Refueling Craftsman Goals GOAL #1: pt transfer sup to/from sit to/from stand independently Goal to be met by: 03/21/17 GOAL #2: pt amb with rwx 150ft with no loss of balance with no increased pain. Goal to be met by: 03/21/17 GOAL #3: pt report pain <2/10 with no reports of radiating pain Goal to be met by: 03/21/17 Plan Plan of Care: Therapeutic EX, Therapeutic Activity, Self-Care/Home Management Modalities: Hot Pack, Cold Pack/Cryotherapy, Ultrasound, Ultrasound Combination , Electrical Stimulation Frequency of Treatment: 1-2 X day, as tolerated Duration of Treatment: 1 Week Anticipated Discharge Destination: Home
[2017-03-16] MEDS: NEURONTIN PO SCH (20:49)
[2017-03-16] MEDS: DESYREL PO SCH (20:49)
[2017-03-17 05:22] LABS: BASOPHILS % (AUTO) 0.2 % (0.0-3.0); EOSINOPHILS % (AUTO) 0.2 % (0.0-7.0); HEMATOCRIT 33.6 % (37.0-47.0); HEMOGLOBIN 11.5 g/dl (12.0-16.0); IMMATURE GRANULOCYTE % (AUTO) 0.4 % (0.0-5.0); LYMPHOCYTES # (AUTO) 1.8 K/uL (0.60-3.4); LYMPHOCYTES % (AUTO) 20.1 (10.0-50.0); MEAN CORPUSCULAR HGB CONC 34.2 (31.8-35.4); MEAN CORPUSCULAR VOLUME 87.7 fl (81.0-99.0); MONOCYTES # (AUTO) 0.5 K/uL (0.4-2.0); NEUTROPHILS # (AUTO) 6.6 K/ul (2.0-6.9); NEUTROPHILS % (AUTO) 73.1; PLATELET COUNT 191 10^3/uL (140-440); RED BLOOD COUNT 3.83 10^6/ul (4.20-5.40); WHITE BLOOD COUNT 8.97 K/ul (4.6-10.2)
[2017-03-17 05:38] LABS: ALBUMIN 3.4 g/dL (3.4-5.0); ALBUMIN/GLOBULIN RATIO 1.06; ANION GAP 13.8; BILIRUBIN,TOTAL 0.33 mg/dL (0.00-1.20); BUN/CREATININE RATIO 20.83; CALCIUM 9.2 mg/dL (8.2-10.2); CREATININE 1.92 mg/dL (0.60-1.30); POTASSIUM 3.8 mmol/L (3.5-5.10); TOTAL PROTEIN 6.6 g/dL (5.8-8.1)
[2017-03-17] MEDS: PROTONIX PO SCH (05:54)
[2017-03-17] MEDS: TORADOL IVP SCH ×3 (05:54→20:24)
[2017-03-17] MEDS: COZAAR PO SCH (09:14)
[2017-03-17] MEDS: LEXAPRO PO SCH (09:14)
[2017-03-17] MEDS: ZEBETA PO SCH (09:14)
[2017-03-17] MEDS: ASPIRIN CHEWABLE PO SCH (09:14)
[2017-03-17] MEDS: CIPRO PO SCH ×2 (09:14→21:22)
--- NOTE | 2017-03-17 09:14 | PCM.PROG ---
Attending Provider: ATTENDING PROVIDER: Dr. YUE GOMEZ DATE OF SERVICE: 03/17/17 SUBJECTIVE: This 76 year old WHITE/ F was hospitalized 03/15/17. The patient is seen with Gem, Nurse Practitioner. The patient is lying in bed alert. She states legs are feeling stronger today. She has been up to bathroom. Urine positive for E. coli although asymptomatic. REVIEW OF SYSTEMS: CONSTITUTIONAL: No lethargy, no malaise. No night sweats. No fever or chills. HEENT: Eyes: No visual changes. No eye pain. No eye discharge. ENT: No runny nose. No epistaxis. No sinus pain. No odynophagia. No congestion. RESPIRATORY: No cough, no congestion. No hemoptysis. No shortness of breath. CARDIOVASCULAR: No angina symptoms. No CHF symptoms. No atypical chest pain for CAD. No palpitations. No orthopnea.. GASTROINTESTINAL: No abdominal pain. No nausea or vomiting. No diarrhea or constipation. No hematemesis. No hematochezia. GENITOURINARY: No urgency. No frequency. No dysuria. No hematuria. No obstructive symptoms. No discharge. No pain. No significant abnormal bleeding. MUSCULOSKELETAL: Leg weakness improving. NEUROLOGICAL: Awake, alert, oriented to time, place and person. No headache. No neck pain. No syncope. No seizures. No dizziness. PSYCHIATRIC: Not anxious. No depression. No suicidal thoughts. No homicidal thoughts. SKIN: No rash. No lesions. No wounds. ENDOCRINE: No unexplained weight loss. No weight gain. HEMATOLOGIC/LYMPHATIC: No anemia. No purpura. No petechiae. No prolonged or excessive bleeding. No palpable lymph nodes. PHYSICAL EXAMINATION: GENERAL: The patient is awake, alert and oriented, lying in bed in no distress. VITAL SIGNS: Temperature 97.8 F, Pulse 51, Respiratory Rate 18, BP 136/75, Pulse Ox 96% HEENT: Head normocephalic, atraumatic. Eyes: Extraocular muscles are intact. Pupils are equal, round and reactive to light and accommodation. Ears: No lesions. Nose appeared normal. Throat: No exudate or erythema. NECK: Supple. No JVD, no carotid bruit. No lymphadenopathy or thyromegaly. LUNGS: Diminished breath sounds bilaterally. Clear to auscultation. Percussion note normal. Chest symmetrical. HEART: S1, S2, no S3. No murmurs. No cyanosis or clubbing. No ascites. Pulses: Dorsalis pedis and posterior tibial pulses +1 to +2 both sides. ABDOMEN: Soft. Non-tender. Bowel sounds active. No CVA tenderness. No mass felt. EXTREMITIES: No edema. Full range of motion of all extremities, equal. NEUROLOGIC: No focal deficit. Cranial nerves II through XII are grossly intact. No headache, no double vision or headache. SKIN: Not dry. Intact. Turgor-normal. LYMPHATIC: No palpable lymph nodes/no lymphedema. MUSCULOSKELETAL: Normal joints with no swelling. Muscle tone is normal. LAB REVIEW: 03/17/17 04:40 03/17/17 04:40 03/17/17 04:40: Sodium 137, Potassium 3.8, Chloride 105, Carbon Dioxide 22 L, Anion Gap 13.8, BUN 40 H, Creatinine 1.92 H, Estimated GFR (MDRD) 26.00, BUN/ Creatinine Ratio 20.83, Glucose 97, Calcium 9.2, Total Bilirubin 0.33, AST 12 L , ALT 14, Alkaline Phosphatase 70, Total Protein 6.6, Albumin 3.4, Globulin 3.2 , Albumin/Globulin Ratio 1.06 03/17/17 04:40: WBC 8.97, RBC 3.83 L, Hgb 11.5 L, Hct 33.6 L, MCV 87.7, MCH 30.0 , MCHC 34.2, RDW Coeff of [place] 12.4, Plt Count 191, Immature Gran % (Auto) 0.4, Neut % (Auto) 73.1, Lymph % (Auto) 20.1, [place] % (Auto) 6.0, Eos % (Auto) 0.2, Baso % (Auto) 0.2, Immature Gran # (Auto) 0.0, Neut # 6.6, Lymph # 1.8, [place] # 0.5, Eos # 0.0, Baso # 0.0 ASSESSMENT: 1. Bilateral sciatica with leg weakness 2. UTI positive for E. coli PLAN: 1. Cipro 500 mg b.i.d. 2. Decadron 4 mg today 3. Anticipate d/c tomorrow 4. Will instruct to go to [facility] Plan and coordination of the patient's care discussed in the presence of Business Development Coordinator and nurse. CONDITION: Stable SCRIBED BY: YANA HAZEL Wire Weaver Cloth scribed while in presence of service performed by Dr. YUE GOMEZ/GEM VELEZ APRN on 03/17/17 ([id number])
[2017-03-17] MEDS: HYDROCHLOROTHIAZIDE PO SCH (09:15)
[2017-03-17] MEDS: DECADRON 4 MG/ML SDV IM SCH (09:15)
[2017-03-17] MEDS ORDERED: MILK OF MAGNESIA PO STA (13:28)
[2017-03-17] MEDS: NEURONTIN PO SCH (21:22)
[2017-03-17] MEDS: DESYREL PO SCH (21:22)
[2017-03-18] MEDS ORDERED: TYLENOL PO STA (02:59)
[2017-03-18] MEDS: TORADOL IVP SCH (04:21)
[2017-03-18] MEDS: PROTONIX PO SCH (05:37)
[2017-03-18 05:45] LABS: BASOPHILS % (AUTO) 0.1 % (0.0-3.0); EOSINOPHILS % (AUTO) 0.2 % (0.0-7.0); HEMATOCRIT 32.5 % (37.0-47.0); HEMOGLOBIN 11.3 g/dl (12.0-16.0); IMMATURE GRANULOCYTE % (AUTO) 0.4 % (0.0-5.0); LYMPHOCYTES % (AUTO) 19.1 (10.0-50.0); MEAN CORPUSCULAR HEMOGLOBIN 30.2 pg (27.0-31.0); MEAN CORPUSCULAR HGB CONC 34.8 (31.8-35.4); MEAN CORPUSCULAR VOLUME 86.9 fl (81.0-99.0); MONOCYTES # (AUTO) 0.6 K/uL (0.4-2.0); MONOCYTES % (AUTO) 5.7 (0-10); NEUTROPHILS # (AUTO) 7.9 K/ul (2.0-6.9); NEUTROPHILS % (AUTO) 74.5; PLATELET COUNT 198 10^3/uL (140-440); RED BLOOD COUNT 3.74 10^6/ul (4.20-5.40); WHITE BLOOD COUNT 10.58 K/ul (4.6-10.2)
[2017-03-18 06:14] LABS: ALBUMIN 3.3 g/dL (3.4-5.0); ALBUMIN/GLOBULIN RATIO 1.03; BILIRUBIN,TOTAL 0.3 mg/dL (0.00-1.20); BUN/CREATININE RATIO 22.5; CALCIUM 9.2 mg/dL (8.2-10.2); TOTAL PROTEIN 6.5 g/dL (5.8-8.1)
[2017-03-18] MEDS ORDERED: TORADOL IVP PRN (08:03)
[2017-03-18] MEDS: ZEBETA PO SCH (08:18)
[2017-03-18] MEDS: COZAAR PO SCH (08:18)
[2017-03-18] MEDS: HYDROCHLOROTHIAZIDE PO SCH (08:18)
[2017-03-18] MEDS: DECADRON 4 MG/ML SDV IM SCH (08:18)
[2017-03-18] MEDS: LEXAPRO PO SCH (08:18)
[2017-03-18] MEDS: CIPRO PO SCH (08:18)
[2017-03-18] MEDS: ASPIRIN CHEWABLE PO SCH (08:18)
--- NOTE | 2017-03-18 09:04 | PCM.PROG ---
Attending Provider: ATTENDING PROVIDER: Dr. YUE TEIXEIRA This patient is seen with Gem Gomez Nurse Practioner DATE OF SERVICE: 03/18/17 SUBJECTIVE: This 76 year old WHITE/ F was hospitalized 03/15/17. The patient is alert, lying in bed. She was up and about yesterday. She did well with the use of a walker. Discussed swing bed vs penitentiary vs Home Health. The patient would like to go home with home health. The patient's kidney function is slightly worse today. REVIEW OF SYSTEMS: CONSTITUTIONAL: No night sweats. No fatigue, malaise, lethargy. No fever or chills. HEENT: Eyes: No visual changes. No eye pain. No eye discharge. ENT: No runny nose. No epistaxis. No sinus pain. No odynophagia. No congestion. RESPIRATORY: No cough, no congestion. No hemoptysis. No shortness of breath. CARDIOVASCULAR: No angina symptoms. No CHF symptoms. No atypical chest pain for CAD. No palpitations. No orthopnea.. GASTROINTESTINAL: No abdominal pain. No nausea or vomiting. No diarrhea or constipation. No hematemesis. No hematochezia. GENITOURINARY: No urgency. No frequency. No dysuria. No hematuria. No obstructive symptoms. No discharge. No pain. No significant abnormal bleeding. MUSCULOSKELETAL: Leg weakness. NEUROLOGICAL: Awake, alert, oriented to time, place and person. No headache. No neck pain. No syncope. No seizures. No dizziness. PSYCHIATRIC: Not anxious. No depression. No suicidal thoughts. No homicidal thoughts. SKIN: No rash. No lesions. No wounds. ENDOCRINE: No unexplained weight loss. No weight gain. HEMATOLOGIC/LYMPHATIC: No anemia. No purpura. No petechiae. No prolonged or excessive bleeding. No palpable lymph nodes. PHYSICAL EXAMINATION: GENERAL: The patient is awake, alert and oriented, lying in bed in no distress. VITAL SIGNS: Temperature 97.4 F, Pulse 49, Respiratory Rate 16, BP 131/80, Pulse Ox 97% HEENT: Head normocephalic, atraumatic. Eyes: Extraocular muscles are intact. Pupils are equal, round and reactive to light and accommodation. Ears: No lesions. Nose appeared normal. Throat: No exudate or erythema. NECK: Supple. No JVD, no carotid bruit. No lymphadenopathy or thyromegaly. LUNGS: Clear to auscultation. Percussion note normal. Chest symmetrical. HEART: S1, S2, no S3. No murmurs. No cyanosis or clubbing. No ascites. Pulses: Dorsalis pedis and posterior tibial pulses +1 to +2 both sides. ABDOMEN: Soft. Non-tender. Bowel sounds active. No CVA tenderness. No mass felt. EXTREMITIES: Trace edema of lower extremities. Leg weakness. Full range of motion of all extremities, equal. NEUROLOGIC: No focal deficit. Cranial nerves II through XII are grossly intact. No headache, no double vision or headache. SKIN: Not dry. Intact. Turgor-normal. LYMPHATIC: No palpable lymph nodes/no lymphedema. MUSCULOSKELETAL: Normal joints with no swelling. Muscle tone is normal. LAB REVIEW: 03/18/17 05:30 03/18/17 05:30 03/18/17 05:30: Sodium 136, Potassium 4.0, Chloride 104, Carbon Dioxide 22 L, Anion Gap 14.0, BUN 45 H, Creatinine 2.00 H, Estimated GFR (MDRD) 24.00, BUN/ Creatinine Ratio 22.50, Glucose 96, Calcium 9.2, Total Bilirubin 0.30, AST 12 L , ALT 14, Alkaline Phosphatase 66, Total Protein 6.5, Albumin 3.3 L, Globulin 3.2, Albumin/Globulin Ratio 1.03 03/18/17 05:30: WBC 10.58 H, RBC 3.74 L, Hgb 11.3 L, Hct 32.5 L, MCV 86.9, MCH 30.2, MCHC 34.8, RDW Coeff of [place] 12.3, Plt Count 198, Immature Gran % (Auto) 0.4, Neut % (Auto) 74.5, Lymph % (Auto) 19.1, [place] % (Auto) 5.7, Eos % (Auto) 0.2, Baso % (Auto) 0.1, Immature Gran # (Auto) 0.0, Neut # 7.9 H, Lymph # 2.0, [place] # 0.6, Eos # 0.0, Baso # 0.0 ASSESSMENT: 1. Bilateral sciatica with leg weakness 2. UTI positive for E. coli 3. Chronic kidney disease PLAN: 1. Toradol q.12hr p.r.n. 2. D/c Dilaudid 3. Encourage more fluids Plan and coordination of the patient's care discussed in the presence of Belting Cutter and nurse. CONDITION: Stable SCRIBED BY: YANA HAZEL [employer] Worker scribed while in presence of service performed by Dr. Teixeira/MELISSA Bustos on 03/18/17 ([id number])
[2017-03-18 11:00] VITALS: BP 112/63; TEMP 98.1
--- NOTE | 2017-03-18 11:13 | HP ---
DATE OF SERVICE: 03/15/17 HISTORY OF PRESENT ILLNESS: This is a 76-year-old female who presented with legs feeling weaker with some pain when walking. The knees only hurt every now and then. She started feeling worse over the weekend. No numbness or tingling. REVIEW OF SYSTEMS: CONSTITUTIONAL: Fatigue. No night sweats. No fever or chills. HEENT: Eyes: No visual changes. No eye pain. No eye discharge. ENT: No runny nose. No epistaxis. No sinus pain. No sore throat. No odynophagia. No ear pain. No congestion. RESPIRATORY: No cough, no congestion. No hemoptysis. No shortness of breath. CARDIOVASCULAR: No angina symptoms. No CHF symptoms. No atypical chest pain for CAD. No palpitations. No orthopnea. GASTROINTESTINAL: No abdominal pain. No nausea or vomiting. No diarrhea or constipation. No hematemesis. No hematochezia. GENITOURINARY: No urgency. No frequency. No dysuria. No hematuria. No obstructive symptoms. No discharge. No pain. No significant abnormal bleeding. MUSCULOSKELETAL: Osteoarthritis pain. NEUROLOGICAL: No headache. No neck pain. No syncope. No seizures. No dizziness. Gait is unsteady. PSYCHIATRIC: Anxious. No depression. No suicidal thoughts. No homicidal thoughts. SKIN: No rash. No lesions. No wounds. ENDOCRINE: Weight loss of 8 lbs. HEMATOLOGIC/LYMPHATIC: No anemia. No purpura. No petechiae. No prolonged or excessive bleeding. No palpable lymph nodes. PERSONAL/FAMILY/SOCIAL HISTORY: The patient is . Nonsmoker. Occasional alcohol use. Three children alive. Occupation: Retired. Family History: Father is -unknown. Mother is with brain tumor. Brothers (10 with 9 living) in accident. Sister one alive. PAST MEDICAL HISTORY: 1. Hypertension 2. Osteoarthritis knees 3. Restless leg syndrome 4. Anemia 5. PVC/PAC 6. History of diverticulosis - never had colonoscopy 7. ASHD 8. Dysphagia 9. Chronic kidney disease, stage 4 10. 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 Menstrual history - hysterectomy PAST SURGICAL PROBLEMS: 1. Breast removed, fibrocystic disease 2. times one 3. Bilateral knee replacement 4. Hysterectomy MEDICATIONS: 1. ASA 81 mg daily 2. Hyzaar 100/125 mg daily 3. Zebeta 5 mg daily 4. Lipitor 20 mg daily 5. Protonix 40 mg daily 6. Trazodone 50 mg h.s. 7. Neurontin 300 mg h.s. 8. Tramadol 50 mg p.o. b.i.d. ALLERGIES: NKDA PHYSICAL EXAMINATION: GENERAL: The patient is oriented times three. VITAL SIGNS: Pulse 86, BP 122/70, temperature 97, 02 sat 99%. Height 5'7", BMI 30.4, weight 194.0. HEENT: Head normocephalic, atraumatic. Eyes: Extraocular muscles are intact. Pupils are equal, round and reactive to light and accommodation. Ears: No lesions. Nose appeared normal. Throat: No exudate or erythema. NECK: Supple. No JVD, no carotid bruit. No lymphadenopathy or thyromegaly. LUNGS: Decreased breath sounds. Clear to auscultation. Percussion note normal. Chest symmetrical. HEART: S1, S2, no S3. No murmurs. No cyanosis or clubbing. No ascites. Pulses: Dorsalis pedis and posterior tibial pulses +1 to +2 both sides. ABDOMEN: Soft. Nontender. Bowel sounds active. No CVA tenderness. No mass felt. EXTREMITIES: No edema. Full range of motion of all extremities, equal. NEUROLOGIC: No focal deficit. Cranial nerves II through XII are grossly intact. No headache, no double vision or headache. SKIN: Not dry. Intact. Turgor - normal. LYMPHATIC: No palpable lymph nodes/no lymphedema. MUSCULOSKELETAL: Normal joints with no swelling. Muscle tone is nor RECTAL: Colonoscopy with Dr. Guan 07/13. PELVIC: Hysterectomy. Mammogram: Bilateral breast implants. LABS: Creatinine 1.8, BUN 35, potassium 4. UA is abnormal with 2+ blood, nitrites positive. Leukocyte esterase positive. The patient had gone for MRI and after she came back she complained of moderate to severe back pain. She was given Toradol prior to that. Now, I am going to start Dilaudid 2 mg q.4hourly for pain p.r.n. The patient's pain was rated as 8 to 9 on a scale of 1 to 10. ASSESSMENT: 1. BILATERAL SCIATICA WITH LEG WEAKNESS 2. INABILITY TO WALK 3. BILATERAL TOTAL KNEE REPLACEMENT 4. HYPERTENSION/LVH 5. OSTEOARTHRITIS KNEES 6. RESTLESS LEG SYNDROME 7. ANEMIA 8. PVC/PAC 9. HYSTERECTOMY 10. HISTORY OF DIVERTICULOSIS 11. ASHD 12. MILD DYSPHAGIA 13. CKD STAGE 4 14. BILATERAL BREAST IMPLANTS 15. SEVERE DJD LOWER BACK PLAN: 1. Admit regular 2. Regular diet 3. Physical Therapy consult 4. CBC and CMP today and daily a.m. 5. TSH, CK level, UA 6. EKG today 7. Toradol 30 mg IV now and q.8hourly 8. 2 cc Decadron IM now and 1 cc Decadron IM in a.m. 9. MRI of L-spine 10. Chest x-ray 11. Continue all home medications TIME SPENT: More than 70 minutes. MTDD
== END 2017-03-18 14:20 | disposition swing bed (61) | DRG 552 ==
LOC: MEDSURG B 12:35
PROVIDERS: ADMIT Internal Medicine; ATTEND Internal Medicine
DX: M54.32 Sciatica, left side (principal); N39.0 Urinary tract infection, site not specified; M54.31 Sciatica, right side; M62.81 Muscle weakness (generalized); B96.20 Unspecified Escherichia coli [E. coli] as the cause of diseases classified elsewhere; I10 Essential (primary) hypertension; I12.9 Hypertensive chronic kidney disease with stage 1 through stage 4 chronic kidney disease, or unspecified chronic kidney disease; N18.9 Chronic kidney disease, unspecified; E78.5 Hyperlipidemia, unspecified; I70.0 Atherosclerosis of aorta; K21.9 Gastro-esophageal reflux disease without esophagitis; K44.9 Diaphragmatic hernia without obstruction or gangrene; K57.90 Diverticulosis of intestine, part unspecified, without perforation or abscess without bleeding; M41.9 Scoliosis, unspecified; G25.81 Restless legs syndrome; F41.9 Anxiety disorder, unspecified; Z79.899 Other long term (current) drug therapy
CPT/HCPCS: 36415; 80053; 81001; 84443; 85025; 87086; 87186; 93005; 93010; 99223; 99232; 99239

== ENCOUNTER 2017-03-18 14:29 | Inpatient (IN) | payer OTHER ==
[2017-03-18 15:47] VITALS: BMI 28.3
--- NOTE | 2017-03-18 16:06 | RS.PTINEVL ---
Subjective - Patient information Date of Evaluation: 03/18/17 Date of Arrival on Unit: 03/18/17 Admitted From:: In-House Transfer Usual Living Arrangement: Alone Living Arrangement Comments: Lives at home alone in town. Significant other states that she may go home with him and he has a ramp. Patient has 3 steps to enter home at her home. Subjective Information/ Patient Comments:: Patient reports back pain is much better. States she has been receiving injections for pain. States her problem is mainly weakness in her legs. States she does not want to bother the nurses and asks if she can walk in the [place] by herself. 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 Left hip 4-/5, Right hip strength: 4/5, Bilateral quads 4- to 4/5, HS 4/5, ankles 4/5. Sensation - Sensation Right Lower Extremity Sensation: Intact/Normal Left Lower Extremity Sensation: Intact/Normal Balance - Sitting Balance and Reactions Static Sitting Balance: Good Dynamic Sitting Balance: Good - Standing Balance and Reactions Static Standing Balance: Good Dynamic Standing Balance: Fair (+) Functional Mobility - Bed Mobility Rolling R/L: Independent Scooting: Independent Supine to Sit: Independent Sit to Supine: CGA, 1 person assist, Verbal Cues, Tactile Cues Comments:: Assistance required with getting LE's up on bed. Instruction given for log rolling when getting in and out of bed to reduce stress on the spine. - Transfers Sit to Stand: Supervision, 1 person assist Stand to Sit: Supervision, 1 person assist Stand Pivot Transfers: Supervision, 1 person assist - Safety Awareness Safety Awareness: Fair Ambulation - Ambulation Weight Bearing Status: FWB Assistive Device Used: Rolling Walker Distance: 15 feet Assistance needed with Ambulation: Supervision, CGA, 1 person assist, Verbal Cues, Tactile Cues Gait Deviations: Short stride Ambulation Comments: Patient ambulates with a slow, cautious, short stride. She consistently clears both feet during swing phase. Demonstrates right rotation of the lower spine when advancing the left LE. Demonstrates decreased left hip and knee flexion during swing phase. Factors Affecting Ambulation: Weakness, Decreased Safety Treatment time - Time with patient Total treatment time: 15 (mins) Patient Education - Education Patient Education: Education of diagnosis, Body/Joint mechanics, Activity Modification Teaching Recipient: Patient Teaching Methods: Discussion Assessment - Assessment Problem List:: Decreased level of function, Requires training/education, Decreased safety/Risk of falls Rehab Potential: Good Further Therapy Indicated?: Yes Comments: Explained to Ms. Silva that she needs to ask for assistance for ambulation in the room or in the barn[place], for her safety. Short Term Goals GOAL #1: Sit to supine with VC's and supvn. Goal to be met by: 03/21/17 GOAL #2: Transfers sit/stand with SBA and consistent use of UEs to push from seat. Goal to be met by: 03/21/17 GOAL #3: Pt amb with RW 100ft with functional stride length w/ supvn. Goal to be met by: 03/21/17 Hadoop Architect Goals GOAL #1: All bed mobility independent. Goal to be met by: 03/23/17 GOAL #2: All transfers independently with good safety. Goal to be met by: 03/23/17 GOAL #3: Pt to amb. with RW household distances with good safety. Goal to be met by: 03/23/17 Plan Plan of Care: Therapeutic EX, Neuromuscular Re-Educ, Therapeutic Activity, Self- Care/Home Management Frequency of Treatment: 1-2 X day, as tolerated Duration of Treatment: 4-5 days Anticipated Discharge Destination: Home
[2017-03-18] MEDS: CIPRO PO SCH (21:20)
[2017-03-18] MEDS: DESYREL PO SCH (21:20)
[2017-03-18] MEDS: NEURONTIN PO SCH (21:20)
[2017-03-19] MEDS: TORADOL IVP PRN (05:06)
[2017-03-19 05:35] LABS: BASOPHILS % (AUTO) 0.2 % (0.0-3.0); EOSINOPHILS % (AUTO) 0.3 % (0.0-7.0); HEMATOCRIT 35.2 % (37.0-47.0); HEMOGLOBIN 12.1 g/dl (12.0-16.0); IMMATURE GRANULOCYTE % (AUTO) 1.1 % (0.0-5.0); LYMPHOCYTES # (AUTO) 2.9 K/uL (0.60-3.4); LYMPHOCYTES % (AUTO) 22.2 (10.0-50.0); MEAN CORPUSCULAR HEMOGLOBIN 30.6 pg (27.0-31.0); MEAN CORPUSCULAR HGB CONC 34.4 (31.8-35.4); MEAN CORPUSCULAR VOLUME 88.9 fl (81.0-99.0); MONOCYTES # (AUTO) 0.9 K/uL (0.4-2.0); MONOCYTES % (AUTO) 6.5 (0-10); NEUTROPHILS # (AUTO) 9.2 K/ul (2.0-6.9); NEUTROPHILS % (AUTO) 69.7; PLATELET COUNT 221 10^3/uL (140-440); RED BLOOD COUNT 3.96 10^6/ul (4.20-5.40); WHITE BLOOD COUNT 13.13 K/ul (4.6-10.2)
[2017-03-19] MEDS: CIPRO PO SCH ×2 (05:35→21:07)
[2017-03-19] MEDS: PROTONIX PO SCH (05:35)
[2017-03-19 05:39] LABS: ALBUMIN 3.5 g/dL (3.4-5.0); ALBUMIN/GLOBULIN RATIO 1.06; ANION GAP 13.1; BILIRUBIN,TOTAL 0.29 mg/dL (0.00-1.20); BUN/CREATININE RATIO 21.53; CALCIUM 9.4 mg/dL (8.2-10.2); CREATININE 1.95 mg/dL (0.60-1.30); POTASSIUM 4.1 mmol/L (3.5-5.10); TOTAL PROTEIN 6.8 g/dL (5.8-8.1)
[2017-03-19] MEDS ORDERED: PROTONIX PO SCH (09:00)
[2017-03-19] MEDS ORDERED: NON-FORMULARY MEDICATION (Losartan/Hydrochlorothiazide [Hyzaar 100-12.5 Tablet] 1 EACH) PO SCH ×22 (09:00)
[2017-03-19] MEDS: COZAAR PO SCH (09:02)
[2017-03-19] MEDS: ASPIRIN CHEWABLE PO SCH (09:02)
[2017-03-19] MEDS: HYDROCHLOROTHIAZIDE PO SCH (09:03)
[2017-03-19] MEDS: LEXAPRO PO SCH (09:03)
[2017-03-19] MEDS: ZEBETA PO SCH (09:04)
[2017-03-19] MEDS: DESYREL PO SCH (21:07)
[2017-03-19] MEDS: NEURONTIN PO SCH (21:07)
[2017-03-20] MEDS: PROTONIX PO SCH (06:30)
[2017-03-20] MEDS: CIPRO PO SCH ×2 (06:30→20:17)
[2017-03-20] MEDS: ASPIRIN CHEWABLE PO SCH (09:36)
[2017-03-20] MEDS: COZAAR PO SCH (09:36)
[2017-03-20] MEDS: HYDROCHLOROTHIAZIDE PO SCH (09:37)
[2017-03-20] MEDS: LEXAPRO PO SCH (09:37)
[2017-03-20] MEDS: ZEBETA PO SCH (09:38)
[2017-03-20] MEDS: DESYREL PO SCH (20:17)
[2017-03-20] MEDS: NEURONTIN PO SCH (20:17)
[2017-03-21] MEDS: PROTONIX PO SCH (06:18)
[2017-03-21] MEDS: CIPRO PO SCH ×2 (06:18→20:01)
[2017-03-21 06:21] LABS: BASOPHILS % (AUTO) 0.4 % (0.0-3.0); EOSINOPHILS # (AUTO) 0.6 K/ul (0.0-0.7); EOSINOPHILS % (AUTO) 6.3 % (0.0-7.0); HEMATOCRIT 31.7 % (37.0-47.0); IMMATURE GRANULOCYTE % (AUTO) 0.4 % (0.0-5.0); LYMPHOCYTES # (AUTO) 2.9 K/uL (0.60-3.4); LYMPHOCYTES % (AUTO) 29.4 (10.0-50.0); MEAN CORPUSCULAR HEMOGLOBIN 30.8 pg (27.0-31.0); MEAN CORPUSCULAR HGB CONC 34.7 (31.8-35.4); MEAN CORPUSCULAR VOLUME 88.8 fl (81.0-99.0); MONOCYTES # (AUTO) 0.7 K/uL (0.4-2.0); MONOCYTES % (AUTO) 7.1 (0-10); NEUTROPHILS # (AUTO) 5.6 K/ul (2.0-6.9); NEUTROPHILS % (AUTO) 56.4; PLATELET COUNT 186 10^3/uL (140-440); RED BLOOD COUNT 3.57 10^6/ul (4.20-5.40); WHITE BLOOD COUNT 9.91 K/ul (4.6-10.2)
[2017-03-21 07:10] LABS: ALBUMIN/GLOBULIN RATIO 1.03; ANION GAP 12.3; BILIRUBIN,TOTAL 0.28 mg/dL (0.00-1.20); BUN/CREATININE RATIO 22.22; CALCIUM 8.9 mg/dL (8.2-10.2); CREATININE 1.98 mg/dL (0.60-1.30); POTASSIUM 4.3 mmol/L (3.5-5.10); TOTAL PROTEIN 5.9 g/dL (5.8-8.1)
[2017-03-21] MEDS: LEXAPRO PO SCH (08:41)
[2017-03-21] MEDS: ZEBETA PO SCH (08:41)
[2017-03-21] MEDS: COZAAR PO SCH (08:41)
[2017-03-21] MEDS: HYDROCHLOROTHIAZIDE PO SCH (08:41)
[2017-03-21] MEDS: ASPIRIN CHEWABLE PO SCH (08:41)
--- NOTE | 2017-03-21 14:01 | US ---
EXAM: Renal ultrasound HISTORY: Acute on chronic kidney disease COMPARISON: 06/24/2016 TECHNIQUE: Renal ultrasound was performed FINDINGS: Right kidney measures 4.9 x 4.1 x 9.7 cm. Left kidney measures 4.3 x 4.1 x 8.8 cm. There is bilateral renal cortical thinning. No hydronephrosis or renal calculus large enough to cause aco ustic shadowing. Bladder grossly unremarkable. IMPRESSION: 1. No hydronephrosis. 2. Findings suggesting medical renal disease.
--- NOTE | 2017-03-21 16:22 | RS.OTINEVL ---
Subjective - Patient information Date of Evaluation: 03/18/17 Date of Arrival on Unit: 03/18/17 Admitted From:: In-House Transfer Usual Living Arrangement: Alone Living Arrangement Comments: Lives at home alone in town. Significant other states that she may go home with him and he has a ramp. Patient has 3 steps to enter home at her home. Medical History: Hypertension Medical History Comments:: B TKA, HTN, cardiac disorders, UTI, diverticulosis, appendectomy, RA Surgical History: Knee Replacement Surgical History Comments:: B TKA, appendectomy, total hysterectomy, Bilateral mastectomy, Subjective Information/ Patient Comments:: I sat in here and cried one night. I was depressed. 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 Interventions - ROM Right Upper Extremity AROM: WFL's Left Upper Extremity AROM: WFL's - Strength Right Upper Extremity Strength: Mild Weakness Left Upper Extremity Strength: Mild Weakness - Sensation Right Upper Extremity Sensation: Intact/Normal Left Upper Extremity Sensation: Intact/Normal Balance - Sitting Balance Static Sitting Balance: Normal Dynamic Sitting Balance: Good - Standing Balance Static Standing Balance: Fair Dynamic Standing Balance: Fair - Comments Balance Assessment Comments: Pt appears to be not certain of her feet. ADL Skills - Self Feeding Self Feeding: Independent - Grooming Grooming: CGA - Bathing Bathing UE: CGA Bathing LE: CGA - Dressing Dressing UE: CGA Dressing LE: CGA Functional Mobility - Bed Mobility Rolling R/L: CGA Scooting: CGA Supine to Sit: CGA Sit to Supine: CGA - Transfers Sit to Stand: Min Assist, 1 person assist Stand to Sit: CGA, 1 person assist Stand Pivot Transfers: Min Assist, 1 person assist - Ambulation Weight Bearing Status: FWB Assistive Device Used: Rolling Walker Assistance needed with Ambulation: Min Assist, 1 person assist - Safety Awareness Safety Awareness: Good Additional Treatment Performed - Additional units charged ADL: 15 - Time with patient Total treatment time: 32 Activities Patient Interests:: Watching Television, Puzzles/Games Patient Education Patient Education: Education of diagnosis, Home Exercise Program, Home Safety, Education of Plan of Care Teaching Recipient: Patient Teaching Methods: Discussion Assessment Problem List:: Decreased level of function, Decreased safety/Risk of falls, Weakness, Pain limits previous level of function Rehab Potential: Good Further Therapy Indicated?: Yes Short Term Goals - Goals GOAL 1: Pt to tolerate 15 minutes of standing activity with rests PRN. Goal to be met by: 03/23/17 Progress towards goal: Met GOAL 2: Pt to tolerate sink level ADLS SUP assistance with RW. Goal to be met by: 03/23/17 GOAL 3: Pt to be independent with ADLS as in PLOF. Goal to be met by: 03/23/17 Progress towards goal: Not [employer] Pilot Goals GOAL 1: Pt to tolerate 20 minutes of standing activity with rests PRN. Goal to be met by: 03/30/17 GOAL 2: Pt to tolerate sink level ADLS SUP assistance with RW. Goal to be met by: 03/30/17 GOAL 3: Pt to be independent with ADLS as in PLOF. Goal to be met by: 03/30/17 Plan Plan of Care: Therapeutic EX, Neuromuscular Re-Educ, Therapeutic Activity, Self- Care/Home Management Modalities: Cold Pack/Cryotherapy Frequency of Treatment: 1-2 X day, as tolerated Duration of Treatment: 1 Week Anticipated Discharge Destination: Home
[2017-03-21] MEDS: TORADOL IVP PRN (16:38)
[2017-03-21] MEDS: NEURONTIN PO SCH (20:01)
[2017-03-21] MEDS: DESYREL PO SCH (20:01)
[2017-03-22 05:32] LABS: BASOPHILS # (AUTO) 0.1 K/uL (0-0.2); BASOPHILS % (AUTO) 0.5 % (0.0-3.0); EOSINOPHILS # (AUTO) 0.7 K/ul (0.0-0.7); EOSINOPHILS % (AUTO) 5.5 % (0.0-7.0); HEMATOCRIT 33.5 % (37.0-47.0); HEMOGLOBIN 11.2 g/dl (12.0-16.0); IMMATURE GRANULOCYTE % (AUTO) 0.6 % (0.0-5.0); LYMPHOCYTES # (AUTO) 2.6 K/uL (0.60-3.4); LYMPHOCYTES % (AUTO) 20.4 (10.0-50.0); MEAN CORPUSCULAR HEMOGLOBIN 30.4 pg (27.0-31.0); MEAN CORPUSCULAR HGB CONC 33.4 (31.8-35.4); MEAN CORPUSCULAR VOLUME 90.8 fl (81.0-99.0); MONOCYTES # (AUTO) 0.7 K/uL (0.4-2.0); MONOCYTES % (AUTO) 5.7 (0-10); NEUTROPHILS # (AUTO) 8.5 K/ul (2.0-6.9); NEUTROPHILS % (AUTO) 67.3; PLATELET COUNT 200 10^3/uL (140-440); RED BLOOD COUNT 3.69 10^6/ul (4.20-5.40); WHITE BLOOD COUNT 12.62 K/ul (4.6-10.2)
[2017-03-22] MEDS: CIPRO PO SCH ×2 (05:39→20:21)
[2017-03-22] MEDS: PROTONIX PO SCH (05:39)
[2017-03-22 05:50] LABS: ALBUMIN 3.2 g/dL (3.4-5.0); ALBUMIN/GLOBULIN RATIO 1.07; ANION GAP 13.5; BILIRUBIN,TOTAL 0.36 mg/dL (0.00-1.20); BUN/CREATININE RATIO 21.59; CALCIUM 9.2 mg/dL (8.2-10.2); CREATININE 2.13 mg/dL (0.60-1.30); POTASSIUM 4.5 mmol/L (3.5-5.10); TOTAL PROTEIN 6.2 g/dL (5.8-8.1)
[2017-03-22] MEDS: ZEBETA PO SCH (08:44)
[2017-03-22] MEDS: LEXAPRO PO SCH (08:44)
[2017-03-22] MEDS: ASPIRIN CHEWABLE PO SCH (08:44)
[2017-03-22] MEDS: HYDROCHLOROTHIAZIDE PO SCH (08:45)
[2017-03-22] MEDS: COZAAR PO SCH (08:45)
[2017-03-22] MEDS: TORADOL IVP PRN ×3 (09:09→20:39)
[2017-03-22] MEDS: NEURONTIN PO SCH (20:21)
[2017-03-22] MEDS: DESYREL PO SCH (20:21)
[2017-03-23] MEDS: PROTONIX PO SCH (05:35)
[2017-03-23] MEDS: CIPRO PO SCH ×2 (05:36→20:26)
[2017-03-23] MEDS: ZEBETA PO SCH (09:28)
[2017-03-23] MEDS: ASPIRIN CHEWABLE PO SCH (09:28)
[2017-03-23] MEDS: HYDROCHLOROTHIAZIDE PO SCH (09:29)
[2017-03-23] MEDS: LEXAPRO PO SCH (09:29)
[2017-03-23] MEDS: COZAAR PO SCH (09:29)
--- NOTE | 2017-03-23 13:00 | PCM.PROG ---
Attending Provider: ATTENDING PROVIDER: Dr. YUE GOMEZ DATE OF SERVICE: 03/23/17 SUBJECTIVE: This 76 year old WHITE/ F was hospitalized 03/18/17. The patient is hospitalized with bilateral sciatica pain under control. She is able to walk with help. Kidney functions are stable. UA showed trace protein. Ultrasound of kidney showed chronic kidney disease. REVIEW OF SYSTEMS: CONSTITUTIONAL: No night sweats. No fatigue, malaise, lethargy. No fever or chills. HEENT: Eyes: No visual changes. No eye pain. No eye discharge. ENT: No runny nose. No epistaxis. No sinus pain. No odynophagia. No congestion. RESPIRATORY: No cough, no congestion. No hemoptysis. No shortness of breath. CARDIOVASCULAR: No angina symptoms. No CHF symptoms. No atypical chest pain for CAD. No palpitations. No orthopnea.. GASTROINTESTINAL: No abdominal pain. No nausea or vomiting. No diarrhea or constipation. No hematemesis. No hematochezia. GENITOURINARY: No urgency. No frequency. No dysuria. No hematuria. No obstructive symptoms. No discharge. No pain. No significant abnormal bleeding. MUSCULOSKELETAL: No musculoskeletal pain; no joint swelling. NEUROLOGICAL: Awake, alert, oriented to time, place and person. No headache. No neck pain. No syncope. No seizures. No dizziness. PSYCHIATRIC: Not anxious. No depression. No suicidal thoughts. No homicidal thoughts. SKIN: No rash. No lesions. No wounds. ENDOCRINE: No unexplained weight loss. No weight gain. HEMATOLOGIC/LYMPHATIC: No anemia. No purpura. No petechiae. No prolonged or excessive bleeding. No palpable lymph nodes. PHYSICAL EXAMINATION: GENERAL: The patient is awake, alert and oriented, lying/sitting in bed in no distress. VITAL SIGNS: Temperature 97.8 F, Pulse 53, Respiratory Rate 18, BP 127/70, Pulse Ox 96% HEENT: Head normocephalic, atraumatic. Eyes: Extraocular muscles are intact. Pupils are equal, round and reactive to light and accommodation. Ears: No lesions. Nose appeared normal. Throat: No exudate or erythema. NECK: Supple. No JVD, no carotid bruit. No lymphadenopathy or thyromegaly. LUNGS: Clear to auscultation. Percussion note normal. Chest symmetrical. HEART: S1, S2, no S3. No murmurs. No cyanosis or clubbing. No ascites. Pulses: Dorsalis pedis and posterior tibial pulses +1 to +2 both sides. ABDOMEN: Soft. Non-tender. Bowel sounds active. No CVA tenderness. No mass felt. EXTREMITIES: No edema. Full range of motion of all extremities, equal. NEUROLOGIC: No focal deficit. Cranial nerves II through XII are grossly intact. No headache, no double vision or headache. SKIN: Not dry. Intact. Turgor-normal. LYMPHATIC: No palpable lymph nodes/no lymphedema. MUSCULOSKELETAL: Normal joints with no swelling. Muscle tone is normal. LAB REVIEW: 03/22/17 04:30 03/22/17 04:30 03/21/17 09:38: Ur Random Microalbumin < 3.0 ASSESSMENT: 1. Bilateral sciatica with leg weakness seems improved alot. PLAN: 1. Continue PT 2. Anti-inflammatory is given. Plan and coordination of the patient's care discussed in the presence of Validation Leader and nurse. CONDITION: Stable SCRIBED BY: Denise ESCOBEDO scribed while in presence of service performed by Dr. YUE GOMEZ on 03/23/17 ([id number])
[2017-03-23] MEDS: TORADOL IVP PRN (13:06)
[2017-03-23] MEDS ORDERED: TORADOL IVP STA (20:23)
[2017-03-23] MEDS: DESYREL PO SCH (20:26)
[2017-03-23] MEDS: NEURONTIN PO SCH (20:26)
[2017-03-24] MEDS: CIPRO PO SCH ×2 (05:47→20:37)
[2017-03-24] MEDS: PROTONIX PO SCH (05:47)
[2017-03-24] MEDS: COZAAR PO SCH (08:57)
[2017-03-24] MEDS: ASPIRIN CHEWABLE PO SCH (08:57)
[2017-03-24] MEDS: HYDROCHLOROTHIAZIDE PO SCH (08:58)
[2017-03-24] MEDS: ZEBETA PO SCH (08:58)
[2017-03-24] MEDS: LEXAPRO PO SCH (08:58)
[2017-03-24] MEDS ORDERED: TYLENOL PO STA (17:05)
[2017-03-24] MEDS: NEURONTIN PO SCH (20:37)
[2017-03-24] MEDS: DESYREL PO SCH (20:37)
[2017-03-25 04:56] LABS: BASOPHILS # (AUTO) 0.1 K/uL (0-0.2); BASOPHILS % (AUTO) 0.6 % (0.0-3.0); EOSINOPHILS # (AUTO) 0.7 K/ul (0.0-0.7); EOSINOPHILS % (AUTO) 7.7 % (0.0-7.0); HEMATOCRIT 28.7 % (37.0-47.0); HEMOGLOBIN 9.5 g/dl (12.0-16.0); IMMATURE GRANULOCYTE % (AUTO) 0.4 % (0.0-5.0); LYMPHOCYTES # (AUTO) 2.1 K/uL (0.60-3.4); LYMPHOCYTES % (AUTO) 24.7 (10.0-50.0); MEAN CORPUSCULAR HEMOGLOBIN 29.8 pg (27.0-31.0); MEAN CORPUSCULAR HGB CONC 33.1 (31.8-35.4); MONOCYTES # (AUTO) 0.6 K/uL (0.4-2.0); MONOCYTES % (AUTO) 7.4 (0-10); NEUTROPHILS % (AUTO) 59.2; PLATELET COUNT 165 10^3/uL (140-440); RED BLOOD COUNT 3.19 10^6/ul (4.20-5.40); WHITE BLOOD COUNT 8.49 K/ul (4.6-10.2)
[2017-03-25 05:13] LABS: ALBUMIN 2.6 g/dL (3.4-5.0); ANION GAP 11.6; BILIRUBIN,TOTAL 0.22 mg/dL (0.00-1.20); BUN/CREATININE RATIO 19.9; CALCIUM 8.6 mg/dL (8.2-10.2); CREATININE 2.16 mg/dL (0.60-1.30); POTASSIUM 4.6 mmol/L (3.5-5.10); TOTAL PROTEIN 5.2 g/dL (5.8-8.1)
[2017-03-25] MEDS: TORADOL IVP PRN ×2 (05:32→20:01)
[2017-03-25] MEDS: PROTONIX PO SCH (05:32)
[2017-03-25] MEDS: CIPRO PO SCH ×2 (05:32→20:00)
[2017-03-25] MEDS: ASPIRIN CHEWABLE PO SCH (08:26)
[2017-03-25] MEDS: ZEBETA PO SCH (08:26)
[2017-03-25] MEDS: HYDROCHLOROTHIAZIDE PO SCH (08:27)
[2017-03-25] MEDS: LEXAPRO PO SCH (08:27)
[2017-03-25] MEDS: COZAAR PO SCH (08:27)
--- NOTE | 2017-03-25 11:53 | PCM.PROG ---
Attending Provider: ATTENDING PROVIDER: Dr. YUE TEIXEIRA This patient is seen with Gem Gomez, Nurse Practitioner. DATE OF SERVICE: 03/25/17 SUBJECTIVE: This 76 year old WHITE/ F was hospitalized 03/18/17. The patient is alert, sitting in the chair. She states she is walking well with the walker. Leg weakness is slowly improving. The patient is making arrangements to go home or to son's. REVIEW OF SYSTEMS: CONSTITUTIONAL: Leg weakness improving. No night sweats. No fatigue, malaise, lethargy. No fever or chills. HEENT: Eyes: No visual changes. No eye pain. No eye discharge. ENT: No runny nose. No epistaxis. No sinus pain. No odynophagia. No congestion. RESPIRATORY: No cough, no congestion. No hemoptysis. No shortness of breath. CARDIOVASCULAR: No angina symptoms. No CHF symptoms. No atypical chest pain for CAD. No palpitations. No orthopnea.. GASTROINTESTINAL: No abdominal pain. No nausea or vomiting. No diarrhea or constipation. No hematemesis. No hematochezia. GENITOURINARY: No urgency. No frequency. No dysuria. No hematuria. No obstructive symptoms. No discharge. No pain. No significant abnormal bleeding. MUSCULOSKELETAL: Leg weakness improving. Back pain is improving. NEUROLOGICAL: Awake, alert, oriented to time, place and person. No headache. No neck pain. No syncope. No seizures. No dizziness. PSYCHIATRIC: Not anxious. No depression. No suicidal thoughts. No homicidal thoughts. SKIN: No rash. No lesions. No wounds. ENDOCRINE: No unexplained weight loss. No weight gain. HEMATOLOGIC/LYMPHATIC: No anemia. No purpura. No petechiae. No prolonged or excessive bleeding. No palpable lymph nodes. PHYSICAL EXAMINATION: GENERAL: The patient is awake, alert and oriented, sitting in chair in no distress. VITAL SIGNS: Temperature 97.7 F, Pulse 51, Respiratory Rate 16, BP 126/66, Pulse Ox 96% HEENT: Head normocephalic, atraumatic. Eyes: Extraocular muscles are intact. Pupils are equal, round and reactive to light and accommodation. Ears: No lesions. Nose appeared normal. Throat: No exudate or erythema. NECK: Supple. No JVD, no carotid bruit. No lymphadenopathy or thyromegaly. LUNGS: Diminished breath sounds bilaterally. Clear to auscultation. Percussion note normal. Chest symmetrical. HEART: S1, S2, no S3. No murmurs. No cyanosis or clubbing. No ascites. Pulses: Dorsalis pedis and posterior tibial pulses +1 to +2 both sides. ABDOMEN: Soft. Non-tender. Bowel sounds active. No CVA tenderness. No mass felt. EXTREMITIES: Trace lower extremity edema. Full range of motion of all extremities, equal. NEUROLOGIC: No focal deficit. Cranial nerves II through XII are grossly intact. No headache, no double vision or headache. SKIN: Not dry. Intact. Turgor-normal. LYMPHATIC: No palpable lymph nodes/no lymphedema. MUSCULOSKELETAL: Normal joints with no swelling. Muscle tone is normal. LAB REVIEW: 03/25/17 04:53 03/25/17 04:53 03/25/17 04:53: Sodium 136, Potassium 4.6, Chloride 106, Carbon Dioxide 23, Anion Gap 11.6, BUN 43 H, Creatinine 2.16 H, Estimated GFR (MDRD) 22.00, BUN/ Creatinine Ratio 19.90, Glucose 96, Calcium 8.6, Total Bilirubin 0.22, AST 9 L, ALT 10 L, Alkaline Phosphatase 62, Total Protein 5.2 L, Albumin 2.6 L, Globulin 2.6, Albumin/Globulin Ratio 1.00 03/25/17 04:53: WBC 8.49, RBC 3.19 L, Hgb 9.5 L, Hct 28.7 L, MCV 90.0, MCH 29.8 , MCHC 33.1, RDW Coeff of [place] 12.4, Plt Count 165, Immature Gran % (Auto) 0.4, Neut % (Auto) 59.2, Lymph % (Auto) 24.7, [place] % (Auto) 7.4, Eos % (Auto) 7.7 H, Baso % (Auto) 0.6, Immature Gran # (Auto) 0.0, Neut # 5.0, Lymph # 2.1, [place] # 0.6, Eos # 0.7, Baso # 0.1 ASSESSMENT: 1. Bilateral sciatica with leg weakness seems improved a lot. 2. Chronic kidney disease 3. UTI resolved. PLAN: 1. Continue PT/OT 2. To see Dr. Gutierrez on 04/09/17 as outpatient 3. D/C Cipro after tonight's dose Plan and coordination of the patient's care discussed in the presence of Cdl Truck Driver and nurse. CONDITION: Stable SCRIBED BY: YANA HAZEL Insurance Claims Analyst scribed while in presence of service performed by Dr. Teixeira/Gem Gomez APRN on 03/25/17 ([id number])
[2017-03-25] MEDS: NEURONTIN PO SCH (20:00)
[2017-03-25] MEDS: DESYREL PO SCH (20:00)
[2017-03-26] MEDS: PROTONIX PO SCH (05:35)
[2017-03-26] MEDS: ASPIRIN CHEWABLE PO SCH (10:40)
[2017-03-26] MEDS: HYDROCHLOROTHIAZIDE PO SCH (10:40)
[2017-03-26] MEDS: LEXAPRO PO SCH (10:41)
[2017-03-26] MEDS: COZAAR PO SCH (10:41)
[2017-03-26] MEDS: ZEBETA PO SCH (10:41)
[2017-03-26] MEDS: DESYREL PO SCH (20:23)
[2017-03-26] MEDS: NEURONTIN PO SCH (20:23)
[2017-03-26] MEDS: TORADOL IVP PRN (20:24)
[2017-03-27] MEDS: PROTONIX PO SCH (05:46)
[2017-03-27] MEDS: COZAAR PO SCH (08:52)
[2017-03-27] MEDS: ASPIRIN CHEWABLE PO SCH (08:52)
[2017-03-27] MEDS: LEXAPRO PO SCH (08:52)
[2017-03-27] MEDS: HYDROCHLOROTHIAZIDE PO SCH (08:52)
[2017-03-27] MEDS: ZEBETA PO SCH (08:53)
[2017-03-27 10:03] LABS: BASOPHILS # (AUTO) 0.1 K/uL (0-0.2); BASOPHILS % (AUTO) 0.9 % (0.0-3.0); EOSINOPHILS # (AUTO) 0.5 K/ul (0.0-0.7); EOSINOPHILS % (AUTO) 6.6 % (0.0-7.0); HEMATOCRIT 31.9 % (37.0-47.0); HEMOGLOBIN 10.7 g/dl (12.0-16.0); IMMATURE GRANULOCYTE % (AUTO) 0.4 % (0.0-5.0); IMMATURE RETIC FRACTION 3.3; LYMPHOCYTES # (AUTO) 1.5 K/uL (0.60-3.4); LYMPHOCYTES % (AUTO) 19.8 (10.0-50.0); MEAN CORPUSCULAR HEMOGLOBIN 30.3 pg (27.0-31.0); MEAN CORPUSCULAR HGB CONC 33.5 (31.8-35.4); MEAN CORPUSCULAR VOLUME 90.4 fl (81.0-99.0); MONOCYTES # (AUTO) 0.4 K/uL (0.4-2.0); MONOCYTES % (AUTO) 5.3 (0-10); NEUTROPHILS # (AUTO) 5.2 K/ul (2.0-6.9); PLATELET COUNT 162 10^3/uL (140-440); RED BLOOD COUNT 3.53 10^6/ul (4.20-5.40); RETICULOCYTE % 0.52 %; WHITE BLOOD COUNT 7.74 K/ul (4.6-10.2)
[2017-03-27 10:57] LABS: ALBUMIN 3.1 g/dL (3.4-5.0); ALBUMIN/GLOBULIN RATIO 1.03; ANION GAP 14.2; BILIRUBIN,TOTAL 0.34 mg/dL (0.00-1.20); BUN/CREATININE RATIO 17.45; CALCIUM 9.3 mg/dL (8.2-10.2); CREATININE 2.12 mg/dL (0.60-1.30); FERRITIN 141.52 ng/mL (4.63-204.00); FOLATE 9.7 ng/mL (3.1-20.5); POTASSIUM 4.2 mmol/L (3.5-5.10); TOTAL PROTEIN 6.1 g/dL (5.8-8.1)
[2017-03-27] MEDS: NEURONTIN PO SCH (20:12)
[2017-03-27] MEDS: DESYREL PO SCH (20:14)
[2017-03-27] MEDS: TORADOL IVP PRN (20:15)
[2017-03-28] MEDS: PROTONIX PO SCH (05:30)
[2017-03-28 05:51] LABS: BASOPHILS # (AUTO) 0.1 K/uL (0-0.2); BASOPHILS % (AUTO) 0.8 % (0.0-3.0); EOSINOPHILS # (AUTO) 0.6 K/ul (0.0-0.7); EOSINOPHILS % (AUTO) 8.2 % (0.0-7.0); HEMOGLOBIN 9.6 g/dl (12.0-16.0); IMMATURE GRANULOCYTE % (AUTO) 0.3 % (0.0-5.0); LYMPHOCYTES # (AUTO) 2.1 K/uL (0.60-3.4); LYMPHOCYTES % (AUTO) 28.6 (10.0-50.0); MEAN CORPUSCULAR HEMOGLOBIN 29.7 pg (27.0-31.0); MEAN CORPUSCULAR HGB CONC 33.1 (31.8-35.4); MEAN CORPUSCULAR VOLUME 89.8 fl (81.0-99.0); MONOCYTES # (AUTO) 0.5 K/uL (0.4-2.0); MONOCYTES % (AUTO) 6.8 (0-10); NEUTROPHILS % (AUTO) 55.3; PLATELET COUNT 156 10^3/uL (140-440); RED BLOOD COUNT 3.23 10^6/ul (4.20-5.40); WHITE BLOOD COUNT 7.23 K/ul (4.6-10.2)
[2017-03-28 06:17] LABS: ALBUMIN 2.8 g/dL (3.4-5.0); ALBUMIN/GLOBULIN RATIO 1.08; ANION GAP 10.4; BILIRUBIN,TOTAL 0.23 mg/dL (0.00-1.20); BUN/CREATININE RATIO 19.27; CALCIUM 8.8 mg/dL (8.2-10.2); CREATININE 1.92 mg/dL (0.60-1.30); POTASSIUM 4.4 mmol/L (3.5-5.10); TOTAL PROTEIN 5.4 g/dL (5.8-8.1)
[2017-03-28] MEDS: ASPIRIN CHEWABLE PO SCH (09:43)
[2017-03-28] MEDS: HYDROCHLOROTHIAZIDE PO SCH (09:44)
[2017-03-28] MEDS: LEXAPRO PO SCH (09:44)
[2017-03-28] MEDS: COZAAR PO SCH (09:44)
[2017-03-28] MEDS: ZEBETA PO SCH (09:45)
--- NOTE | 2017-03-28 11:16 | PCM.PROG ---
Attending Provider: ATTENDING PROVIDER: Dr. YUE TEIXEIRA This patient is seen with Gem Gomez, Nurse Practitioner. DATE OF SERVICE: 03/28/17 SUBJECTIVE: This 76 year old WHITE/ F was hospitalized 03/18/17. The patient is alert, lying in bed. She is wanting to go home. Discussed possibility of long term placement for physical therapy. Her son will be here today and she will discuss this with him. REVIEW OF SYSTEMS: CONSTITUTIONAL: No night sweats. No fatigue, malaise, lethargy. No fever or chills. HEENT: Eyes: No visual changes. No eye pain. No eye discharge. ENT: No runny nose. No epistaxis. No sinus pain. No odynophagia. No congestion. RESPIRATORY: No cough, no congestion. No hemoptysis. No shortness of breath. CARDIOVASCULAR: No angina symptoms. No CHF symptoms. No atypical chest pain for CAD. No palpitations. No orthopnea.. GASTROINTESTINAL: No abdominal pain. No nausea or vomiting. No diarrhea or constipation. No hematemesis. No hematochezia. GENITOURINARY: No urgency. No frequency. No dysuria. No hematuria. No obstructive symptoms. No discharge. No pain. No significant abnormal bleeding. MUSCULOSKELETAL: Leg weakness and back pain. NEUROLOGICAL: Awake, alert, oriented to time, place and person. No headache. No neck pain. No syncope. No seizures. No dizziness. PSYCHIATRIC: Not anxious. No depression. No suicidal thoughts. No homicidal thoughts. SKIN: No rash. No lesions. No wounds. ENDOCRINE: No unexplained weight loss. No weight gain. HEMATOLOGIC/LYMPHATIC: No anemia. No purpura. No petechiae. No prolonged or excessive bleeding. No palpable lymph nodes. PHYSICAL EXAMINATION: GENERAL: The patient is awake, alert and oriented, lying in bed in no distress. VITAL SIGNS: Temperature 98.0 F, Pulse 50, Respiratory Rate 16, BP 127/74, Pulse Ox 95% HEENT: Head normocephalic, atraumatic. Eyes: Extraocular muscles are intact. Pupils are equal, round and reactive to light and accommodation. Ears: No lesions. Nose appeared normal. Throat: No exudate or erythema. NECK: Supple. No JVD, no carotid bruit. No lymphadenopathy or thyromegaly. LUNGS: Diminished breath sounds bilaterally. Clear to auscultation. Percussion note normal. Chest symmetrical. HEART: S1, S2, no S3. No murmurs. No cyanosis or clubbing. No ascites. Pulses: Dorsalis pedis and posterior tibial pulses +1 to +2 both sides. ABDOMEN: Soft. Non-tender. Bowel sounds active. No CVA tenderness. No mass felt. EXTREMITIES: No edema. Full range of motion of all extremities, equal. NEUROLOGIC: No focal deficit. Cranial nerves II through XII are grossly intact. No headache, no double vision or headache. SKIN: Not dry. Intact. Turgor-normal. LYMPHATIC: No palpable lymph nodes/no lymphedema. MUSCULOSKELETAL: Normal joints with no swelling. Muscle tone is normal. LAB REVIEW: 03/28/17 05:28 03/28/17 05:28 03/28/17 05:28: Sodium 135 L, Potassium 4.4, Chloride 104, Carbon Dioxide 25, Anion Gap 10.4, BUN 37 H, Creatinine 1.92 H, Estimated GFR (MDRD) 26.00, BUN/ Creatinine Ratio 19.27, Glucose 88, Calcium 8.8, Total Bilirubin 0.23, AST 11 L , ALT 8 L, Alkaline Phosphatase 57, Total Protein 5.4 L, Albumin 2.8 L, Globulin 2.6, Albumin/Globulin Ratio 1.08 03/28/17 05:28: WBC 7.23, RBC 3.23 L, Hgb 9.6 L, Hct 29.0 L, MCV 89.8, MCH 29.7 , MCHC 33.1, RDW Coeff of [place] 12.3, Plt Count 156, Immature Gran % (Auto) 0.3, Neut % (Auto) 55.3, Lymph % (Auto) 28.6, Grand % (Auto) 6.8, Eos % (Auto) 8.2 H, Baso % (Auto) 0.8, Immature Gran # (Auto) 0.0, Neut # 4.0, Lymph # 2.1, Grand # 0.5, Eos # 0.6, Baso # 0.1 03/27/17 09:55: Vitamin B12 619 03/27/17 09:55: Sodium 135 L, Potassium 4.2, Chloride 102, Carbon Dioxide 23, Anion Gap 14.2, BUN 37 H, Creatinine 2.12 H, Estimated GFR (MDRD) 23.00, BUN/ Creatinine Ratio 17.45, Glucose 122 H, Calcium 9.3, Iron 95, TIBC 260, % Saturation 37, Unsat Iron Binding 165, Ferritin 141.52, Total Bilirubin 0.34, AST 11 L, ALT 10 L, Alkaline Phosphatase 69, Total Protein 6.1, Albumin 3.1 L, Globulin 3.0, Albumin/Globulin Ratio 1.03, Folate 9.7 03/27/17 09:55: WBC 7.74, RBC 3.53 L, Hgb 10.7 L, Hct 31.9 L, MCV 90.4, MCH 30.3 , MCHC 33.5, RDW Coeff of [place] 12.3, Plt Count 162, Immature Gran % (Auto) 0.4, Neut % (Auto) 67.0, Lymph % (Auto) 19.8, Grand % (Auto) 5.3, Eos % (Auto) 6.6, Baso % (Auto) 0.9, Reticulocyte % (Auto) 0.52, Immature Gran # (Auto) 0.0, Neut # 5.2, Lymph # 1.5, Grand # 0.4, Eos # 0.5, Baso # 0.1, Absolute Retic 0.0184, Retic Hgb Equivalent 33.0 ASSESSMENT: 1. Bilateral sciatica with leg weakness seems improved a lot. 2. Chronic kidney disease 3. UTI resolved. PLAN: 1. Appointment with Dr. Gutierrez on 04/09/17 2. Arrange discharge to home or long term with continued PT Plan and coordination of the patient's care discussed in the presence of Stock Trader and nurse. CONDITION: Stable SCRIBED BY: YANA HAZEL Tip Inserter scribed while in presence of service performed by Dr. Teixeira/Gem Gomez APRN on 03/28/17 ([id number])
[2017-03-28] MEDS: TORADOL IVP PRN (20:07)
[2017-03-28] MEDS: DESYREL PO SCH (20:08)
[2017-03-28] MEDS: NEURONTIN PO SCH (20:08)
[2017-03-29 05:23] VITALS: BP 132/72; TEMP 97.9
[2017-03-29 05:24] LABS: BASOPHILS # (AUTO) 0.1 K/uL (0-0.2); BASOPHILS % (AUTO) 0.7 % (0.0-3.0); EOSINOPHILS # (AUTO) 0.5 K/ul (0.0-0.7); EOSINOPHILS % (AUTO) 6.4 % (0.0-7.0); HEMATOCRIT 28.3 % (37.0-47.0); HEMOGLOBIN 9.4 g/dl (12.0-16.0); IMMATURE GRANULOCYTE % (AUTO) 0.3 % (0.0-5.0); LYMPHOCYTES # (AUTO) 2.1 K/uL (0.60-3.4); LYMPHOCYTES % (AUTO) 28.2 (10.0-50.0); MEAN CORPUSCULAR HEMOGLOBIN 29.7 pg (27.0-31.0); MEAN CORPUSCULAR HGB CONC 33.2 (31.8-35.4); MEAN CORPUSCULAR VOLUME 89.6 fl (81.0-99.0); MONOCYTES # (AUTO) 0.5 K/uL (0.4-2.0); MONOCYTES % (AUTO) 7.3 (0-10); NEUTROPHILS # (AUTO) 4.2 K/ul (2.0-6.9); NEUTROPHILS % (AUTO) 57.1; PLATELET COUNT 148 10^3/uL (140-440); RED BLOOD COUNT 3.16 10^6/ul (4.20-5.40); WHITE BLOOD COUNT 7.38 K/ul (4.6-10.2)
[2017-03-29] MEDS: PROTONIX PO SCH (05:45)
[2017-03-29 05:53] LABS: ALBUMIN 2.7 g/dL (3.4-5.0); ANION GAP 9.9; BILIRUBIN,TOTAL 0.21 mg/dL (0.00-1.20); BUN/CREATININE RATIO 17.22; CREATININE 1.8 mg/dL (0.60-1.30); POTASSIUM 4.9 mmol/L (3.5-5.10); TOTAL PROTEIN 5.4 g/dL (5.8-8.1)
[2017-03-29] MEDS: ZEBETA PO SCH (08:36)
[2017-03-29] MEDS: HYDROCHLOROTHIAZIDE PO SCH (08:36)
[2017-03-29] MEDS: LEXAPRO PO SCH (08:36)
[2017-03-29] MEDS: ASPIRIN CHEWABLE PO SCH (08:36)
[2017-03-29] MEDS: COZAAR PO SCH (08:36)
--- NOTE | 2017-03-29 09:28 | DS ---
DATE OF SERVICE: 03/29/17 (Discharged from swing bed) FINAL DIAGNOSIS: 1. BILATERAL SCIATICA WITH LEG WEAKNESS 2. GAIT ABNORMALITY, IMPROVED 3. UTI, E. COLI ORGANISM, TREATED 4. DYSLIPIDEMIA 5. HYPERTENSION 6. AORTIC ATHEROSCLEROSIS 7. GERD 8. SMALL HIATAL HERNIA 9. 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 RESTLESS LEG SYNDROME (GABAPENTIN) 13. ANXIETY 14. BREAST IMPLANTS 15. LEFT KNEE ARTHROPLASTY 16. TIMES ONE DISCHARGE INSTRUCTIONS: Followup appointment: Return to see Dr. Teixeira in one week. Please phone his office to schedule your follow up appointment ([phone]). [facility] will contact you to arrange home visits for nursing services, physical therapy and occupational therapy in your home ([phone]). Keepy your scheduled appointment of 04/09/17 at 9:[address] Jonny Gutierrez ([facility] [place])/[facility]/[address] [place] [address]/[place] [address] . MEDICATIONS AT DISCHARGE: Aspirin 81 mg p.o. daily with meal FARRUKH Zebeta 5 mg p.o. daily FARRUKH Lexapro 10 mg p.o. daily FARRUKH Gabapentin 300 mg p.o. bedtime FARRUKH Losartan Potassium (Cozaar) Hydrochlorothiazide (Hydrochlorothiazide) 100-12.5 mg p.o. daily FARRUKH Pantoprazole (Protonix) 40 mg p.o. q.d a.c. FARRUKH Trazodone (Desyrel) 50 mg p.o. bedtime FARRUKH Hold the following medication: Atorvastatin (Lipitor) 20 mg p.o. daily NEW PRESCRIPTIONS: Lexapro 10 mg p.o. daily DIET INSTRUCTIONS: Regular as tolerated. Steam Table Associate please consult to provide for optimal nutritional needs of this patient. ACTIVITY: Get plenty of rest at home. Gradually increase your activity level according to your toleration. SMOKING: Never smoker DISEASE SPECIFIC EDUCATION: Sciatica Osteoarthritis Physical Therapy Occupational Therapy Pain Management Home Medications New Medications Follow up Home Health Services HOSPITAL COURSE: This 76 year old WHITE/ F was hospitalized 03/18/17. The patient was a direct admit from the office for extreme leg weakness, chronic back pain due to bilateral sciatica, severe. She was admitted placed on IV steroids with physical and occupational therapy, treatment and evaluation. Gradually, leg strength has improved and she is able to get up with assistance. She is still not completely independent. Over the course of her hospital stay, kidney function slightly worsened. Creatinine at highest was 2.2. She was also positive for UTI due to E. coli for which she was treated with Cipro 500 mg p.o. for 7 days and this has since resolved. We were unable to place her in a prison facility for rehab so will go home with home health for PT and OT. The patient has an appointment with Dr. Gutierrez, back specialist on the . Kidney function is stable today. Will followup with the patient next week. EDUCATION: A face to face discussion with the patient to arrange Home Health for general nursing assessment, PT and OT. The patient voices understanding and is agreeable. TIME SPENT: More than 60 minutes. SCRIBED BY: YANA HAZEL Ultrasound Specialist scribed while in presence of service performed by Dr. Teixeira/Gem Gomez APRN on 03/29/17 ([id number]) JOAQUIM
--- NOTE | 2017-03-29 11:34 | PCM.PROG ---
Attending Provider: ATTENDING PROVIDER: Dr. YUE TEIXEIRA This patient is seen with Gem Gomez, Nurse Practitioner. DATE OF SERVICE: 03/29/17 SUBJECTIVE: This 76 year old WHITE/ F was hospitalized 03/18/17. The patient was a direct admit from office for extreme leg weakness, chronic back pain due to bilateral sciatica, severe. She was admitted and placed on IV steroids with physical and occupational therapy, treatment and evaluation. Gradually leg strength has improved and she is able to get up with assistance, still not completely independent. Over the course of her hospital stay, kidney function slightly worsened. Creatinine at highest was 2.2. She was also positive for UTI due to E.Coli for which she was treated with Cipro 500 mg p.o. for 7 days and this has since resolved. We were unable to place her in a group home facility for rehab so she will go home with Home Health for PT/OT. The patient has an appointment with Dr. Gutierrez, back specialist, on 04/09/17. Kidney function stable today. I will followup with the patient next week. REVIEW OF SYSTEMS: CONSTITUTIONAL: No night sweats. No fatigue, malaise, lethargy. No fever or chills. HEENT: Eyes: No visual changes. No eye pain. No eye discharge. ENT: No runny nose. No epistaxis. No sinus pain. No odynophagia. No congestion. RESPIRATORY: No cough, no congestion. No hemoptysis. No shortness of breath. CARDIOVASCULAR: No angina symptoms. No CHF symptoms. No atypical chest pain for CAD. No palpitations. No orthopnea.. GASTROINTESTINAL: No abdominal pain. No nausea or vomiting. No diarrhea or constipation. No hematemesis. No hematochezia. GENITOURINARY: No urgency. No frequency. No dysuria. No hematuria. No obstructive symptoms. No discharge. No pain. No significant abnormal bleeding. MUSCULOSKELETAL: Leg weakness. NEUROLOGICAL: Awake, alert, oriented to time, place and person. No headache. No neck pain. No syncope. No seizures. No dizziness. PSYCHIATRIC: Not anxious. No depression. No suicidal thoughts. No homicidal thoughts. SKIN: No rash. No lesions. No wounds. ENDOCRINE: No unexplained weight loss. No weight gain. HEMATOLOGIC/LYMPHATIC: No anemia. No purpura. No petechiae. No prolonged or excessive bleeding. No palpable lymph nodes. PHYSICAL EXAMINATION: GENERAL: The patient is awake, alert and oriented, lying/sitting in bed in no distress. VITAL SIGNS: Temperature 97.9 F, Pulse 59, Respiratory Rate 16, BP 132/72, Pulse Ox 94% HEENT: Head normocephalic, atraumatic. Eyes: Extraocular muscles are intact. Pupils are equal, round and reactive to light and accommodation. Ears: No lesions. Nose appeared normal. Throat: No exudate or erythema. NECK: Supple. No JVD, no carotid bruit. No lymphadenopathy or thyromegaly. LUNGS: Diminished breath sounds bilaerally. Clear to auscultation. Percussion note normal. Chest symmetrical. HEART: S1, S2, no S3. No murmurs. No cyanosis or clubbing. No ascites. Pulses: Dorsalis pedis and posterior tibial pulses +1 to +2 both sides. ABDOMEN: Soft. Non-tender. Bowel sounds active. No CVA tenderness. No mass felt. EXTREMITIES: Trace pedal edema. Full range of motion of all extremities, equal. Bilateral positive straight leg raise. NEUROLOGIC: No focal deficit. Cranial nerves II through XII are grossly intact. No headache, no double vision or headache. SKIN: Not dry. Intact. Turgor-normal. LYMPHATIC: No palpable lymph nodes/no lymphedema. MUSCULOSKELETAL: Normal joints with no swelling. Muscle tone is normal. LAB REVIEW: 03/29/17 05:22 03/29/17 05:22 03/29/17 05:22: Sodium 137, Potassium 4.9, Chloride 106, Carbon Dioxide 26, Anion Gap 9.9, BUN 31 H, Creatinine 1.80 H, Estimated GFR (MDRD) 28.00, BUN/ Creatinine Ratio 17.22, Glucose 84, Calcium 9.0, Total Bilirubin 0.21, AST 11 L , ALT 9 L, Alkaline Phosphatase 58, Total Protein 5.4 L, Albumin 2.7 L, Globulin 2.7, Albumin/Globulin Ratio 1.00 03/29/17 05:22: WBC 7.38, RBC 3.16 L, Hgb 9.4 L, Hct 28.3 L, MCV 89.6, MCH 29.7 , MCHC 33.2, RDW Coeff of [place] 12.2, Plt Count 148, Immature Gran % (Auto) 0.3, Neut % (Auto) 57.1, Lymph % (Auto) 28.2, [place] % (Auto) 7.3, Eos % (Auto) 6.4, Baso % (Auto) 0.7, Immature Gran # (Auto) 0.0, Neut # 4.2, Lymph # 2.1, [place] # 0.5, Eos # 0.5, Baso # 0.1 03/27/17 09:55: Transferrin 222 ASSESSMENT: 1. Bilateral sciatica with leg weakness seems much improved 2. Chronic kidney disease 3. UTI resolved. PLAN: 1. Discharge home today 2. Followup with Dr. Gutierrez at [facility] on 04/09/17. 3. Followup with Dr. Teixeira/Gem next week 4. Face to face discussion with patient concerning Home Health for general nursing assessment, PT and OT. The patient voices understanding and is agreeable. Plan and coordination of the patient's care discussed in the presence of Drophammer Operator and nurse. CONDITION: Stable SCRIBED BY: YANA HAZEL Childcare Director scribed while in presence of service performed by Dr. Teixeira/Gem Gomez, JUS on 03/29/17 ([id number])
--- NOTE | 2017-03-29 14:05 | CM.DICTOOL ---
ADMISSION: 03/18/17 14:29 DISCHARGE: 03/29/17 DATE OF SERVICE: 03/29/17 FINAL DIAGNOSIS BILATERAL SCIATICA WITH LEG WEAKNESS GAIT ABNORMALITY, IMPROVED UTI, E-COLI ORGANISM, TREATED DYSLIPIDEMIA HYPERTENSION AORTIC ATHEROSCLEROSIS GERD SMALL HIATAL HERNIA DIVERTICULOSIS DDD-SPINE SCOLIOSIS OF THE SPINE RESTLESS LEG SYNDROME (GABAPENTIN) ANXIETY BREAST IMPLANTS LEFT KNEE ARTHROPLASTY X1 LAST VITALS Temp Pulse Resp BP Pulse Ox 98.0 F 50 L 16 127/74 95 03/28/17 05:55 03/28/17 05:55 03/28/17 05:55 03/28/17 05:55 03/28/17 05:55 ACTIVE MEDICATIONS Aspirin (Aspirin Chewable) 81 mg PO DAILYWM [facility] Last Admin: 03/28/17 09:43 Dose: 81 mg Bisoprolol Fumarate (Zebeta) 5 mg PO DAILY [facility] Last Admin: 03/28/17 09:45 Dose: 5 mg Escitalopram Oxalate (Lexapro) 10 mg PO DAILY [facility] Last Admin: 03/28/17 09:44 Dose: 10 mg Gabapentin (Neurontin) 300 mg PO BEDTIME [facility] Last Admin: 03/27/17 20:12 Dose: 300 mg Losartan Potassium (Cozaar)/Hydrochlorothiazide (Hydrochlorothiazide) 100-12.5 mg PO DAILY [facility] Last Admin: 03/28/17 09:44 Dose: 100 mg Pantoprazole Sodium (Protonix) 40 mg PO QDAC [facility] Last Admin: 03/28/17 05:30 Dose: 40 mg Trazodone HCl (Desyrel) 50 mg PO BEDTIME [facility] Last Admin: 03/27/17 20:14 Dose: 50 mg HOLDING THE FOLLOWING MEDICATIONS: Atorvastatin Calcium (Lipitor) 20 mg PO DAILY [facility] sulfamethoxazole [From Bactrim] Adverse Reaction (Verified 08/06/15 15:12) trimethoprim [From Bactrim] Adverse Reaction (Verified 08/06/15 15:12) NEW PRESCRIPTIONS: LEXAPRO 10 MG PO DAILY SMOKING: NEVER SMOKER DISEASE SPECIFIC EDUCATION: SCIATICA OSTEOARTHRITIS PHYSICAL THERAPY OCCUPATIONAL THERAPY PAIN MANAGEMENT HOME MEDICATIONS NEW MEDICATIONS FOLLOW UP HOME HEALTH SERVICES LAB REVIEW: 03/28/17 05:28 03/28/17 05:28 03/28/17 05:28: Sodium 135 L, Potassium 4.4, Chloride 104, Carbon Dioxide 25, Anion Gap 10.4, BUN 37 H, Creatinine 1.92 H, Estimated GFR (MDRD) 26.00, BUN/ Creatinine Ratio 19.27, Glucose 88, Calcium 8.8, Total Bilirubin 0.23, AST 11 L , ALT 8 L, Alkaline Phosphatase 57, Total Protein 5.4 L, Albumin 2.8 L, Globulin 2.6, Albumin/Globulin Ratio 1.08 03/28/17 05:28: WBC 7.23, RBC 3.23 L, Hgb 9.6 L, Hct 29.0 L, MCV 89.8, MCH 29.7 , MCHC 33.1, RDW Coeff of [place] 12.3, Plt Count 156, Immature Gran % (Auto) 0.3, Neut % (Auto) 55.3, Lymph % (Auto) 28.6, [place] % (Auto) 6.8, Eos % (Auto) 8.2 H, Baso % (Auto) 0.8, Immature Gran # (Auto) 0.0, Neut # 4.0, Lymph # 2.1, [place] # 0.5, Eos # 0.6, Baso # 0.1 PLAN: DISCHARGE HOME TODAY RETURN TO SEE DR. GOMEZ IN ONE WEEK. PLEASE PHONE HIS OFFICE TO SCHEDULE YOUR FOLLOW UP APPOINTMENT ([phone]) [facility] WILL CONTACT YOU TO ARRANGE HOME VISITS FOR NURSING SERVICES, PHYSICAL THERAPY AND OCCUPATIONAL THERAPY IN YOUR HOME ([phone]) KEEP YOUR SCHEDULED APPOINTMENT OF 04/09/17 AT 9:40 AM WITH: DR. ALEC JAMIL (ALDO MATHEW) [facility] [place] [address] PH: [phone] RESUME YOUR HOME MEDICATIONS PER LIST PROVIDED BY THE NURSING STAFF NEW MEDICATIONS LEXAPRO 10 MG PO DAILY ACTIVITY: GET PLENTY OF REST AT HOME. GRADUALLY INCREASE YOUR ACTIVITY LEVEL ACCORDING TO YOUR TOLERATION DIET: REGULAR TOLERATED SUMMARY: THE PATIENT IS ALERT AND ORIENTED X3. SHE CURRENTLY RESIDES AT HOME ALONE AND IN THE PAST HAS BEEN INDEPENDENT WITH ADL'S. SHE HAS A CANE AT HOME TO ASSIST WITH AMBULATION WHEN NEEDED. SHE IS AGREEABLE TO RETURN HOME WITH ASSISTANCE FROM HER BROTHER, GREGG CHRISTIE AND [facility] SERVICES. HER SKIN TURGOR IS INTACT. SHE HAS NO DECUBITUS ULCERS AT DISCHARGE. SHE IS AWARE AND AGREEABLE FOR DISCHARGE PLANS TODAY. CURRENT CODE STATUS: DO NOT RESUSCITATE MIGEL VELEZ APRN YUE GOMEZ M.D.
--- NOTE | 2017-03-30 13:39 | PN ---
DATE OF SERVICE: 03/29/17 SUBJECTIVE: 76 year old white female hospitalized with severe bilateral sciatica. The patient's pain is under control and she was in the swing bed. She responded to physical therapy and anti-inflammatory very well. The patient is going to be discharged home on anti-inflammatory. She is supposed to see back specialist as outpatient within couple weeks. The patient is to be seen as outpatient. Back exercises discussed with the patient. CONDITION: Stable The patient was seen and examined with Nurse Practitioner. TIME SPENT: More than 30 minutes. Plan and coordination of the patient's care discussed in the presence of nurse. JOAQUIM
== END 2017-03-29 15:49 | disposition home or self-care (01) | DRG 552 ==
LOC: MEDSURG B 14:29
PROVIDERS: ADMIT Internal Medicine; ATTEND Internal Medicine
DX: M54.32 Sciatica, left side (principal); N39.0 Urinary tract infection, site not specified; M54.31 Sciatica, right side; M62.81 Muscle weakness (generalized); B96.20 Unspecified Escherichia coli [E. coli] as the cause of diseases classified elsewhere; I10 Essential (primary) hypertension; I12.9 Hypertensive chronic kidney disease with stage 1 through stage 4 chronic kidney disease, or unspecified chronic kidney disease; N18.9 Chronic kidney disease, unspecified; E78.5 Hyperlipidemia, unspecified; I70.0 Atherosclerosis of aorta; K21.9 Gastro-esophageal reflux disease without esophagitis; K44.9 Diaphragmatic hernia without obstruction or gangrene; K57.90 Diverticulosis of intestine, part unspecified, without perforation or abscess without bleeding; M41.9 Scoliosis, unspecified; G25.81 Restless legs syndrome; F41.9 Anxiety disorder, unspecified; Z79.899 Other long term (current) drug therapy
CPT/HCPCS: 36415; 76770; 80053; 82043; 82607; 82728; 82746; 83540; 83550; 84439; 84443; 84466; 85025; 85045; 97802

== ENCOUNTER 2017-05-10 14:40 | Outpatient (CLI) | END 2017-05-10 14:41 | disposition left against medical advice (07) | LOC: AMBL 14:40 | PROVIDERS: ATTEND Emergency Medicine | DX: M25.551 Pain in right hip (principal); W19.XXXA Unspecified fall, initial encounter ==

== ENCOUNTER 2017-05-14 10:51 | Inpatient (IN) ==
[2017-05-14] MEDS ORDERED: SOLU-MEDROL 125 MG IM STA (11:27)
[2017-05-14] MEDS ORDERED: MORPHINE 2 MG/ML SYRINGE IM STA (11:27)
[2017-05-14] MEDS ORDERED: ZOFRAN ODT PO STA (11:28)
--- NOTE | 2017-05-14 11:35 | ED.PDOC ---
General ED Provider: Dr. BRYAN GUSMAN Chief Complaint: Back Pain Stated Complaint: Pateint states she has had severe lower back pain off and on and has been treated for sciatica. States she started having severe pain this past week got worse today. Has difficulty walking due to pain. Most of the pain is in the lowr back and right hip. Time Seen by Physician: 11:32 Mode of Arrival: Ambulance Information Source: Patient Primary Care Provider: YUE GOMEZ Nursing and Triage Documentation Reviewed and Agree: Yes Musculoskeletal Complaint Exam - Lower Extremity Complaint/Exam Location of Pain: Reports: Right Mechanism of Injury: Reports: No known trauma Onset/Duration: constant Symptoms Are: Still present Initial Severity: Severe Current Severity: Severe Location: Reports: Radiating Character: Reports: Aching, Throbbing Aggravating: Reports: Movement, Weight bearing Able to Bear Weight: Yes Related History: Reports: Similar episode (sciatica ) DVT Risk Factors: Reports: None Septic Arthritis Risk Factors: Reports: None Related Surgical History: Reports: None Lower Extremity Findings: Present: Limited range of motion (to full extension on the right hip ) NV Bundle Intact Distal to Injury: Yes Compartment Syndrome Risk Factors: Absent: Pain, Paralysis, Pallor, Pulselessness, Paresthesias Felicita's Sign Present: No Differential Diagnoses: Sciatica, Strain, Sprain Review of Systems - Review Of Systems Constitutional: Reports: Weakness Eyes: Reports: No symptoms Ears, Nose, Mouth, Throat: Reports: No symptoms Respiratory: Reports: No symptoms Cardiac: Reports: No symptoms GI: Reports: No symptoms : Reports: No symptoms Musculoskeletal: Reports: Back pain, Joint pain Skin: Reports: No symptoms Neurological: Reports: Anxiety Endocrine: Reports: No symptoms Hematologic/Lymphatic: Reports: No symptoms All Other Systems: Reviewed and Negative Past Medical History - Past Medical History Endocrine: Reports: None Cardiovascular: Reports: Hypertension Respiratory: Reports: None Hematological: Reports: None Gastrointestinal: Reports: None Genitourinary: Reports: None Neuro/Psych: Reports: None Musculoskeletal: Reports: Arthritis Cancer: Reports: None Last Menstrual Period: none - Surgical History General Surgical History: Reports: Hysterectomy (BLADDER SUSPENSION), , Orthopedic (BILAT KNEE REPLACEMENT, ), Other (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) - Family History Family History: Reports: Unknown - Social History Smoking Status: Never smoker Hx Substance Use: No Alcohol Screening: Occasionally Physical Exam - Physical Exam Appearance: Obese Ill-appearing: Mild Pain Distress: Severe Re-Evaluation - Re-Evaluation Time of Re-Evaluation: 13:00 Status: Improved (pain better but still weak ) Physician Notification - Case Discussed Physician Notified: Dr Gomez Time of Notification: 13:00 (Admit ) Critical Care Note - Critical Care Note Total Time (mins): 0 Course - Course Orders, Labs, Meds: Orders Category Date Time Status Methylprednisolone Sod Succ/Pf [Solu-Medrol 125 mg] MEDS 05/14/17 11:27 Discontinued 125 mg IM ONCE STA Morphine Sulfate [Morphine 2 mg/ml Syringe] MEDS 05/14/17 11:27 Discontinued 4 mg IM ONCE STA Ondansetron [Zofran Odt] MEDS 05/14/17 11:28 Discontinued 4 mg PO ONCE STA CT LUMBAR SPINE W/O CONTRAST Stat RADS 05/14/17 11:[address] PELVIS W/O CONTRAST Stat RADS 05/14/17 11:29 Completed Medications Generic Name Dose Route Start Last Admin Trade Name Freq PRN Reason Stop Dose Admin Acetaminophen 650 mg 05/14/17 13:15 Tylenol PO Q4H PRN Mild pain Aspirin 81 mg 05/15/17 09:00 Aspirin Chewable PO DAILY [facility] Bisoprolol Fumarate 5 mg 05/15/17 09:00 Zebeta PO DAILY [facility] Enoxaparin Sodium 40 mg 05/15/17 09:00 Lovenox SUBCUT DAILY [facility] Escitalopram Oxalate 20 mg 05/15/17 09:00 Lexapro PO DAILY [facility] Gabapentin 300 mg 05/14/17 21:00 Neurontin PO BEDTIME [facility] Potassium Chloride/Dextrose/Sod Cl 1,000 mls @ 75 mls/hr 05/14/17 13:30 05/14 14:14 D5%-Ns-Kcl 20 Meq/L Iv Candice IV 75 mls/hr .[id number] [facility] Administration Ketorolac Tromethamine 15 mg 05/14/17 13:27 Toradol IVP 05/15/17 12:00 Q6H PRN back pain Methylprednisolone Sodium Succinate 125 mg 05/14/17 21:00 Solu-Medrol 125 Mg IVP Q8HR [facility] Non-Formulary Medication 325 mg 05/14/17 21:00 Ferrous Sulfate [Iron] PO BID [facility] Non-Formulary Medication 1 each 05/15/17 09:00 Losartan/Hydrochlorothiazide [Hyzaar 100-12.5 Tablet] PO DAILY [facility] Ondansetron HCl 4 mg 05/14/17 13:15 Zofran 4 Mg/2 Ml IVP Q6H PRN Nausea / Vomiting Pantoprazole Sodium 40 mg 05/15/17 09:00 Protonix PO DAILY [facility] Tramadol HCl 50 mg 05/14/17 13:28 Ultram PO BID PRN moderate pain Trazodone HCl 50 - 100 mg 05/14/17 13:28 Desyrel PO BEDTIME PRN insomina Discontinued Medications Generic Name Dose Route Start Last Admin Trade Name Freq PRN Reason Stop Dose Admin Methylprednisolone Sodium Succinate 125 mg 05/14/17 11:27 05/14/17 12:05 Solu-Medrol 125 Mg IM 05/14/17 11:28 125 mg ONCE STA Administration Morphine Sulfate 4 mg 05/14/17 11:27 05/14/17 12:05 Morphine 2 Mg/Ml Syringe IM 05/14/17 11:28 4 mg ONCE STA Administration Ondansetron HCl 4 mg 05/14/17 11:28 05/14/17 12:21 Zofran Odt PO 05/14/17 11:29 4 mg ONCE STA Administration Vital Signs: Temp Pulse Resp BP Pulse Ox 05/14/17 10:52 97.8 F 68 18 138/80 96 Departure - Departure Time of Disposition: 13:20 Disposition: ADMITTED INPATIENT Discharge Problem: Leg weakness Qualifiers: Laterality: bilateral Qualified Code(s): R29.898 - Other symptoms and signs involving the musculoskeletal system Low back pain Qualifiers: Chronicity: chronic Back pain laterality: bilateral Sciatica presence: with sciatica Sciatica laterality: bilateral sciatica Qualified Code(s): M54.42 - Lumbago with sciatica, left side; M54.41 - Lumbago with sciatica, right side; M54.41 - Lumbago with sciatica, right side; G89.29 - Other chronic pain; G89.29 - Other chronic pain Condition: Good Pt referred to PMD for follow-up: Yes Allergies/Adverse Reactions: Allergies sulfamethoxazole [From Bactrim] Adverse Reaction (Verified 05/14/17 10:59) trimethoprim [From Bactrim] Adverse Reaction (Verified 05/14/17 10:59) Home Medications: Ambulatory Orders Aspirin 81 mg PO DAILY 03/15/17 Bisoprolol Fumarate [Zebeta] 5 mg PO DAILY 03/15/17 Gabapentin [Neurontin] 300 mg PO BEDTIME 03/15/17 Losartan/Hydrochlorothiazide [Hyzaar 100-12.5 Tablet] 1 each PO DAILY 03/15/17 Pantoprazole Sodium [Protonix] 40 mg PO DAILY 03/15/17 Trazodone HCl 1 - 2 tab PO BEDTIME 03/15/17 Escitalopram Oxalate [Lexapro] 20 mg PO DAILY 05/14/17 Ferrous Sulfate [Iron] 325 mg PO BID 05/14/17 Tramadol HCl [Ultram] 50 mg PO BID PRN 05/14/17
--- NOTE | 2017-05-14 11:56 | CT ---
EXAM: CT scan of the pelvis without contrast HISTORY: Right hip pain, history of fall, the same TECHNIQUE: Imaging of the pelvis was performed without contrast. Axial images and coronal and sagit gerson reconstructions were provided for interpretation. FINDINGS: The femoral head are seen in normal position. The femoral neck appear intact. No acute a bnormalities are seen within the pubic rami. The sacrum appears intact. The iliac wings are intact. IMPRESSION: No acute fracture dislocation seen within the pelvis.
--- NOTE | 2017-05-14 11:56 | CT ---
Exam: CT lumbar spine without IV contrast. Clinical indication: Severe low back pain. Comparison is made to the prior MRI dated 03/15/2017. TECHNIQUE: Axial unenhanced CT images from the lower thoracic spine through the mid sacrum were obta ined followed by coronal and sagittal reformats. Findings: There are five non-rib bearing lumbar vertebra. There is a lumbar scoliosis convex right secondary to multilevel degenerative changes. The remainder the alignment is within normal limits. The T12-L1 level demonstrates a mild broad-based posterior disc bulge, but no spinal stenosis or neur al foraminal narrowing. At the L1-L2 level there is a posterior disc osteophyte complex associate with bilateral facet hypert rophic degenerative changes, causing mild bilateral neural foraminal narrowing. At the L2-L3 level there is moderate degenerative disc disease associate with a moderate posterior di sc osteophyte complex and bilateral facet hypertrophic degenerative changes, causing moderate right n eural foraminal narrowing. At the L3-L4 level there is moderate degenerative disc disease associate with a moderate posterior br oad-based disc bulge and bilateral facet hypertrophic degenerative changes, causing moderate right ne ural foraminal narrowing. At the L4-L5 level there is moderate degenerative disc disease associate with a mild broad-based post erior disc bulge and bilateral facet hypertrophic degenerative changes, causing mild left neural fora lawrence narrowing. At the L5-S1 level there is a minimal broad-based posterior disc bulge associate with minimal facet d egenerative changes, but no spinal stenosis or neural foraminal narrowing. There is aortoiliac atherosclerotic vascular calcifications. The remainder of the visualized soft ti ssues are unremarkable. Impression: 1. Lumbar scoliosis convex left. 2. Multilevel degenerative changes with neural foraminal narrowing, as described above on the level by level basis.
[2017-05-14] MEDS ORDERED: ZOFRAN 4 MG/2 ML IVP PRN (13:15)
[2017-05-14] MEDS ORDERED: TORADOL IVP PRN (13:27)
[2017-05-14] MEDS ORDERED: DESYREL PO PRN (13:28)
[2017-05-14] MEDS ORDERED: D5%-NS-KCL 20 MEQ/L IV SOL 1,000 ML IV SCH (13:30)
[2017-05-14 14:06] VITALS: BMI 28.3
[2017-05-14] MEDS ORDERED: TYLENOL PO PRN (18:07)
[2017-05-14] MEDS ORDERED: VISTARIL INJ IM PRN (18:07)
[2017-05-14] MEDS ORDERED: ATROPINE SULFATE PFS IVP PRN (18:07)
[2017-05-14] MEDS ORDERED: MORPHINE 4 MG/ML VIAL IVP PRN (18:07)
[2017-05-14] MEDS ORDERED: NITROSTAT SL PRN (18:07)
[2017-05-14 18:28] LABS: ABG PCO2 42.8 mmHg (35-45); ABG PH 7.367 (7.35-7.45)
[2017-05-14 18:29] LABS: BASOPHILS % (AUTO) 0.1 % (0.0-3.0); HEMATOCRIT 35.4 % (37.0-47.0); HEMOGLOBIN 11.5 g/dl (12.0-16.0); IMMATURE GRANULOCYTE % (AUTO) 0.3 % (0.0-5.0); LYMPHOCYTES # (AUTO) 0.5 K/uL (0.60-3.4); LYMPHOCYTES % (AUTO) 5.1 (10.0-50.0); MEAN CORPUSCULAR HEMOGLOBIN 29.9 pg (27.0-31.0); MEAN CORPUSCULAR HGB CONC 32.5 (31.8-35.4); MEAN CORPUSCULAR VOLUME 92.2 fl (81.0-99.0); MONOCYTES % (AUTO) 0.3 (0-10); NEUTROPHILS # (AUTO) 8.5 K/ul (2.0-6.9); NEUTROPHILS % (AUTO) 94.2; PLATELET COUNT 176 10^3/uL (140-440); RED BLOOD COUNT 3.84 10^6/ul (4.20-5.40); WHITE BLOOD COUNT 9.05 K/ul (4.6-10.2)
[2017-05-14 18:29] LABS: ABG BASE EXCESS -1 (-2.0-2.0); ABG HCO3 24.6 (22.0-26.0); ABG TCO2 26 (22.0-28.0)
[2017-05-14 19:05] LABS: ALANINE AMINOTRANSFERASE 11 U/L (12-78); ALBUMIN 3.6 g/dL (3.4-5.0); ALKALINE PHOSPHATASE 73 U/L (53-141); ANION GAP 15.7; ASPARTATE AMINO TRANSFERASE 17 U/L (15-37); BILIRUBIN,TOTAL 0.37 mg/dL (0.00-1.20); BLOOD UREA NITROGEN 28 mg/dL (7-18); CALCIUM 9.9 mg/dL (8.2-10.2); CARBON DIOXIDE 24 mmol/L (23-31); CHLORIDE 104 mmol/L (98-107); CREATINE KINASE 301 U/L; CREATININE 1.76 mg/dL (0.60-1.30); GLUCOSE 174 mg/dL (82-115); MYOGLOBIN 142 ng/ml; POTASSIUM 4.7 mmol/L (3.5-5.10); SODIUM 139 mmol/L (136-145); TOTAL PROTEIN 7.2 g/dL (5.8-8.1)
[2017-05-14 19:07] LABS: CREATINE KINASE MB 2.5 ng/ml (0.0-3.6)
[2017-05-14 19:34] LABS: BILIRUBIN,URINE Negative (NEGATIVE); KETONES,URINE Negative (NEGATIVE); LEUKOCYTE ESTERASE ,URINE 1+ (NEGATIVE); NITRITE,URINE Negative (NEGATIVE); PH,URINE 5.5 (5-9); PROTEIN,URINE Negative (NEGATIVE); URINE, BLOOD Trace-lysed (NEGATIVE)
[2017-05-14 19:42] LABS: ADD URINE MICROSCOPIC YES; BACTERIA,URINE 2+ (NOT PRESENT)
[2017-05-14] MEDS ORDERED: NON-FORMULARY MEDICATION (Ferrous Sulfate [Iron] 325 MG) PO SCH ×22 (21:00)
[2017-05-14] MEDS ORDERED: FERROUS SULFATE ONE (22:01)
[2017-05-14] MEDS: SOLU-MEDROL 125 MG IVP SCH (22:16)
[2017-05-14] MEDS: NEURONTIN PO SCH (22:17)
[2017-05-14 23:31] LABS: HEMATOCRIT 33.1 % (37.0-47.0); HEMOGLOBIN 10.8 g/dl (12.0-16.0); IMMATURE GRANULOCYTE % (AUTO) 0.5 % (0.0-5.0); LYMPHOCYTES # (AUTO) 0.4 K/uL (0.60-3.4); LYMPHOCYTES % (AUTO) 7.2 (10.0-50.0); MEAN CORPUSCULAR HEMOGLOBIN 30.3 pg (27.0-31.0); MEAN CORPUSCULAR HGB CONC 32.6 (31.8-35.4); MEAN CORPUSCULAR VOLUME 92.7 fl (81.0-99.0); MONOCYTES % (AUTO) 0.3 (0-10); NEUTROPHILS # (AUTO) 5.5 K/ul (2.0-6.9); PLATELET COUNT 172 10^3/uL (140-440); RED BLOOD COUNT 3.57 10^6/ul (4.20-5.40); WHITE BLOOD COUNT 5.97 K/ul (4.6-10.2)
[2017-05-14 23:50] LABS: ALBUMIN 3.3 g/dL (3.4-5.0); ANION GAP 14.3; BILIRUBIN,TOTAL 0.35 mg/dL (0.00-1.20); BUN/CREATININE RATIO 18.23; CALCIUM 9.7 mg/dL (8.2-10.2); CREATININE 1.7 mg/dL (0.60-1.30); POTASSIUM 5.3 mmol/L (3.5-5.10); TOTAL PROTEIN 6.6 g/dL (5.8-8.1)
[2017-05-15 02:35] LABS: HEMATOCRIT 31.9 % (37.0-47.0); HEMOGLOBIN 10.4 g/dl (12.0-16.0); MEAN CORPUSCULAR HGB CONC 32.6 (31.8-35.4); MEAN CORPUSCULAR VOLUME 91.9 fl (81.0-99.0); PLATELET COUNT 156 10^3/uL (140-440); RED BLOOD COUNT 3.47 10^6/ul (4.20-5.40); WHITE BLOOD COUNT 5.81 K/ul (4.6-10.2)
[2017-05-15 02:42] LABS: ANISOCYTOSIS NOT PRESENT (NOT PRESENT)
[2017-05-15 02:55] LABS: ALBUMIN 3.2 g/dL (3.4-5.0); ALBUMIN/GLOBULIN RATIO 1.03; ANION GAP 12.4; BILIRUBIN,TOTAL 0.31 mg/dL (0.00-1.20); BUN/CREATININE RATIO 18.98; CALCIUM 9.4 mg/dL (8.2-10.2); CREATININE 1.58 mg/dL (0.60-1.30); POTASSIUM 5.4 mmol/L (3.5-5.10); TOTAL PROTEIN 6.3 g/dL (5.8-8.1)
[2017-05-15 03:11] LABS: CREATINE KINASE 195 U/L; MYOGLOBIN 81 ng/ml
[2017-05-15 03:12] LABS: CREATINE KINASE MB 1.6 ng/ml (0.0-3.6)
[2017-05-15] MEDS: SOLU-MEDROL 125 MG IVP SCH ×3 (05:23→20:53)
--- NOTE | 2017-05-15 07:14 | DI ---
EXAM: Chest one view. CLINICAL INDICATION: Hypoxia. COMPARISON: 03/15/2017. FINDINGS: A single AP radiograph of the thorax is provided. There are calcified pulmonary granulomas, consistent with old healed granulomatous disease. There is a chronically elevated right hemidiaphragm. Otherwise, there are pulmonary parenchyma is clear and there is no pleural abnormality. The cardiomediastinal silhouette and visualized bony structures are unchanged. IMPRESSION: 1. Chronically elevated right hemidiaphragm. 2. No interval change, with no acute pulmonary abnormality.
[2017-05-15] MEDS ORDERED: ASPIRIN EC PO SCH (08:00)
[2017-05-15] MEDS: ASPIRIN CHEWABLE PO SCH (08:51)
[2017-05-15] MEDS: ZEBETA PO SCH (08:51)
[2017-05-15] MEDS: COZAAR PO SCH (08:51)
[2017-05-15] MEDS: LOVENOX SUBCUT SCH (08:52)
[2017-05-15] MEDS: LEXAPRO PO SCH (08:52)
[2017-05-15] MEDS: FERROUS SULFATE PO SCH ×2 (08:52→20:50)
[2017-05-15] MEDS: PROTONIX PO SCH (08:52)
[2017-05-15] MEDS: HYDROCHLOROTHIAZIDE PO SCH (08:57)
[2017-05-15] MEDS ORDERED: NON-FORMULARY MEDICATION (Losartan/Hydrochlorothiazide [Hyzaar 100-12.5 Tablet] 1 EACH) PO SCH ×44 (09:00)
[2017-05-15] MEDS: TYLENOL PO PRN (18:37)
[2017-05-15] MEDS: NEURONTIN PO SCH (20:50)
[2017-05-16 05:20] LABS: BASOPHILS % (AUTO) 0.1 % (0.0-3.0); HEMATOCRIT 31.6 % (37.0-47.0); HEMOGLOBIN 10.7 g/dl (12.0-16.0); IMMATURE GRANULOCYTE % (AUTO) 0.8 % (0.0-5.0); LYMPHOCYTES # (AUTO) 0.7 K/uL (0.60-3.4); LYMPHOCYTES % (AUTO) 3.8 (10.0-50.0); MEAN CORPUSCULAR HEMOGLOBIN 30.5 pg (27.0-31.0); MEAN CORPUSCULAR HGB CONC 33.9 (31.8-35.4); MONOCYTES # (AUTO) 0.2 K/uL (0.4-2.0); MONOCYTES % (AUTO) 1.3 (0-10); NEUTROPHILS # (AUTO) 17.1 K/ul (2.0-6.9); PLATELET COUNT 186 10^3/uL (140-440); RED BLOOD COUNT 3.51 10^6/ul (4.20-5.40); WHITE BLOOD COUNT 18.21 K/ul (4.6-10.2)
[2017-05-16 05:38] LABS: ALBUMIN 3.2 g/dL (3.4-5.0); ALBUMIN/GLOBULIN RATIO 0.97; ANION GAP 13.4; BILIRUBIN,TOTAL 0.2 mg/dL (0.00-1.20); BUN/CREATININE RATIO 21.51; CALCIUM 9.6 mg/dL (8.2-10.2); CREATININE 1.58 mg/dL (0.60-1.30); POTASSIUM 4.4 mmol/L (3.5-5.10); TOTAL PROTEIN 6.5 g/dL (5.8-8.1)
[2017-05-16] MEDS: PROTONIX PO SCH (06:10)
[2017-05-16] MEDS: SOLU-MEDROL 125 MG IVP SCH ×3 (06:10→20:47)
[2017-05-16] MEDS: TYLENOL PO PRN ×2 (06:14→15:59)
[2017-05-16] MEDS: LOVENOX SUBCUT SCH (08:13)
[2017-05-16] MEDS: HYDROCHLOROTHIAZIDE PO SCH (08:13)
[2017-05-16] MEDS: FERROUS SULFATE PO SCH ×2 (08:13→20:47)
[2017-05-16] MEDS: COZAAR PO SCH (08:13)
[2017-05-16] MEDS: ASPIRIN CHEWABLE PO SCH (08:13)
[2017-05-16] MEDS: LEXAPRO PO SCH (08:13)
[2017-05-16] MEDS: ZEBETA PO SCH (08:13)
--- NOTE | 2017-05-16 11:35 | PCM.PROG ---
Attending Provider: ATTENDING PROVIDER: Dr. YUE TEIEXIRA This patient is seen with Gem Gomez, Nurse Practitioner. DATE OF SERVICE: 05/16/17 SUBJECTIVE: This 76 year old WHITE/ F was hospitalized 05/14/17. The patient is lying in bed, alert. Back pain has improved Legs are aching today. REVIEW OF SYSTEMS: CONSTITUTIONAL: No night sweats. No fatigue, malaise, lethargy. No fever or chills. HEENT: Eyes: No visual changes. No eye pain. No eye discharge. ENT: No runny nose. No epistaxis. No sinus pain. No odynophagia. No congestion. RESPIRATORY: No cough, no congestion. No hemoptysis. No shortness of breath. CARDIOVASCULAR: No angina symptoms. No CHF symptoms. No atypical chest pain for CAD. No palpitations. No orthopnea.. GASTROINTESTINAL: No abdominal pain. No nausea or vomiting. No diarrhea or constipation. No hematemesis. No hematochezia. GENITOURINARY: No urgency. No frequency. No dysuria. No hematuria. No obstructive symptoms. No discharge. No pain. No significant abnormal bleeding. MUSCULOSKELETAL: Back pain and leg weakness. NEUROLOGICAL: Awake, alert, oriented to time, place and person. No headache. No neck pain. No syncope. No seizures. No dizziness. PSYCHIATRIC: Not anxious. No depression. No suicidal thoughts. No homicidal thoughts. SKIN: No rash. No lesions. No wounds. ENDOCRINE: No unexplained weight loss. No weight gain. HEMATOLOGIC/LYMPHATIC: No anemia. No purpura. No petechiae. No prolonged or excessive bleeding. No palpable lymph nodes. PHYSICAL EXAMINATION: GENERAL: The patient is awake, alert and oriented, lying in bed in no distress. VITAL SIGNS: Temperature 98.5 F, Pulse 63, Respiratory Rate 14, BP 139/75, Pulse Ox 98% HEENT: Head normocephalic, atraumatic. Eyes: Extraocular muscles are intact. Pupils are equal, round and reactive to light and accommodation. Ears: No lesions. Nose appeared normal. Throat: No exudate or erythema. NECK: Supple. No JVD, no carotid bruit. No lymphadenopathy or thyromegaly. LUNGS: Diminished breath sounds bilaterally. Percussion note normal. Chest symmetrical. HEART: S1, S2, no S3. No murmurs. No cyanosis or clubbing. No ascites. Pulses: Dorsalis pedis and posterior tibial pulses +1 to +2 both sides. ABDOMEN: Soft. Non-tender. Bowel sounds active. No CVA tenderness. No mass felt. EXTREMITIES: No edema. Full range of motion of all extremities, equal. NEUROLOGIC: No focal deficit. Cranial nerves II through XII are grossly intact. No headache, no double vision or headache. SKIN: Not dry. Intact. Turgor-normal. LYMPHATIC: No palpable lymph nodes/no lymphedema. MUSCULOSKELETAL: Normal joints with no swelling. Muscle tone is normal. LAB REVIEW: 05/16/17 04:47 05/16/17 04:47 05/16/17 04:47: Sodium 139, Potassium 4.4, Chloride 106, Carbon Dioxide 24, Anion Gap 13.4, BUN 34 H, Creatinine 1.58 H, Estimated GFR (MDRD) 32.00, BUN/ Creatinine Ratio 21.51, Glucose 157 H, Calcium 9.6, Total Bilirubin 0.20, AST 12 L, ALT 12, Alkaline Phosphatase 59, Total Protein 6.5, Albumin 3.2 L, Globulin 3.3, Albumin/Globulin Ratio 0.97 05/16/17 04:47: WBC 18.21 H D, RBC 3.51 L, Hgb 10.7 L, Hct 31.6 L, MCV 90.0, MCH 30.5, MCHC 33.9, RDW Coeff of [place] 12.8, Plt Count 186, Immature Gran % (Auto ) 0.8, Neut % (Auto) 94.0, Lymph % (Auto) 3.8 L, [place] % (Auto) 1.3, Eos % (Auto ) 0.0, Baso % (Auto) 0.1, Immature Gran # (Auto) 0.2, Neut # 17.1 H, Lymph # 0.7 , [place] # 0.2 L, Eos # 0.0, Baso # 0.0 ASSESSMENT: 1. Intractable back pain 2. Bilateral sciatica with leg weakness 3. Severe DJD L-spine PLAN: 1. PT consult 2. Continue IV steroids 3. The patient has appt with Dr. Gutierrez the beginning of May Plan and coordination of the patient's care discussed in the presence of Professor Of Languages and nurse. CONDITION: Stable SCRIBED BY: YANA HAZEL, Jewel Bearing Driller scribed while in presence of service performed by Dr. Teixeira/Gem Gomez APRN on 05/16/17 ([id number])
--- NOTE | 2017-05-16 13:25 | RS.OTINEVL ---
Subjective - Patient information Date of Evaluation: 05/16/17 Date of Arrival on Unit: 05/14/17 Usual Living Arrangement: Alone Living Arrangement Comments: Lives at home alone in town. Significant other states that she may go home with him and he has a ramp. Patient has 3 steps to enter home at her home. Medical History Comments:: stenosis, Sees Dr. Jonny Gutierrez in May for possible surgery. Surgical History Comments:: Bilateral mastectomy, total hysterectomy, B TKA, Subjective Information/ Patient Comments:: "I fell at the [employer] and this you maricel helped me to my house. 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 Pt reportes she fell at the [employer] and could not get up. Current Level of Function: Independent Current Equipment Used at Home: walker, life alert, and grabbers for out of reach things. Pain Assessment - Pain Pain Score: 8 Side: bilateral Pain Location Body Site: Back Pain Aggravating Factors: Standing Pain Alleviating Factors: Medication, Sitting Interventions - Objective Patient Orientation: Person, Place, Situation Current Interventions: IV's, Oxygen Observation: Pt appears to be weak and having difficulty with ambulation, in tranfers and functional mobility. Interventions - ROM Right Upper Extremity AROM: WFL's Left Upper Extremity AROM: WFL's - Strength Right Upper Extremity Strength: Mild Weakness Left Upper Extremity Strength: Mild Weakness - Sensation Right Upper Extremity Sensation: Intact/Normal Left Upper Extremity Sensation: Intact/Normal Balance - Sitting Balance Static Sitting Balance: Fair Dynamic Sitting Balance: Fair - Standing Balance Static Standing Balance: Poor Dynamic Standing Balance: Poor - Comments Balance Assessment Comments: Impaired balance ADL Skills - Self Feeding Self Feeding: Independent - Grooming Grooming: Independent - Bathing Bathing UE: CGA Bathing LE: CGA - Dressing Dressing UE: CGA Dressing LE: CGA - Toilet Management Toileting Management: Min Assist Functional Mobility - Bed Mobility Scooting: Min Assist Supine to Sit: Min Assist Sit to Supine: Min Assist - Transfers Sit to Stand: Min Assist Stand to Sit: Min Assist Stand Pivot Transfers: Min Assist Additional Treatment Performed - Time with patient Total treatment time: 28 Activities Patient Interests:: Watching Television, Visiting/Socializing Patient Education Patient Education: Education of diagnosis, Education of Plan of Care Teaching Recipient: Patient Teaching Methods: Discussion Assessment Problem List:: Decreased level of function, Requires training/education, Decreased safety/Risk of falls, Weakness, Pain limits previous level of function Rehab Potential: Good Further Therapy Indicated?: Yes Short Term Goals - Goals GOAL 1: Pt to tolerate 15 minutes of standing activity with rests PRN. Goal to be met by: 05/23/17 Progress towards goal: Met GOAL 2: Pt to tolerate sink level ADLS SUP assistance with RW. Goal to be met by: 05/23/17 Progress towards goal: Met GOAL 3: Pt to be independent with ADLS as in PLOF. Goal to be met by: 05/23/17 Progress towards goal: Partially Met Correction Goals GOAL 1: Pt to tolerate 20 minutes of standing activity with rests PRN. Goal to be met by: 05/30/17 GOAL 2: Pt to tolerate sink level ADLS SUP assistance with RW. Goal to be met by: 05/30/17 GOAL 3: Pt to be independent with ADLS as in PLOF. Goal to be met by: 05/30/17 Plan Plan of Care: Therapeutic EX, Neuromuscular Re-Educ, Therapeutic Activity, Self- Care/Home Management Modalities: Cold Pack/Cryotherapy, Ultrasound, Ultrasound Combination, Electrical Stimulation Frequency of Treatment: 1-2 X day, as tolerated Duration of Treatment: 2 Weeks Anticipated Discharge Destination: Home Has the Physician been added for Co-signature?: No
--- NOTE | 2017-05-16 13:36 | RS.PTINEVL ---
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 States her "legs gave way" and she suffered abrasions to hands, bruise to L cheek, L shld and abrasion to back. States her son is coming in from [place] and is going to put her in the [facility]. 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 Pain Assessement - Location Lower Back Description: Sharp, Aching Intensity: 8 Radiation Location: BLE Pain Behavior: Facial Grimacing Pain Aggravating Factors: ADL's, Changing Position, Exercise/Activity, Standing , Sitting, Walking Pain Alleviating Factors: Medication Interventions - Objective Patient Orientation: Person, Place, Time, Situation Current Interventions: Oxygen, Telemetry Range of Motion - ROM Right Upper Extremity AROM: WFL's Left Upper Extremity AROM: WFL's Right Lower Extremity AROM: WFL's Left Lower Extremity AROM: WFL's Muscle Strength - Muscle Strength Right Upper Extremity Strength: Mild Weakness (grossly 4-/5) Left Upper Extremity Strength: Mild Weakness (grossly 4-/5) Right Lower Extremity Strength: Mild Weakness (hip flex 3-/5, knee flex/ext 3/5 , ankle DF/PF 3/5) Left Lower Extremity Strength: Mild Weakness (hip flex 3-/5, knee flex/ext 3/5, ankle DF/PF 3/5) Sensation - Sensation Right Upper Extremity Sensation: Impaired Left Upper Extremity Sensation: Impaired Right Lower Extremity Sensation: Impaired Left Lower Extremity Sensation: Impaired (n/t B feet and LE's) Palpation Palpation Findings: Tenderness Balance - Sitting Balance and Reactions Static Sitting Balance: Good Dynamic Sitting Balance: Fair Sitting Equilibrium Reactions: Delayed Left, Delayed Right Sitting Protective Reactions: Delayed Left, Delayed Right - Standing Balance and Reactions Static Standing Balance: Poor Dynamic Standing Balance: Poor Standing Equilibrium Reactions: Delayed Left, Delayed Right Standing Protective Reactions: Delayed Left, Delayed Right - Comments Balance Assessment Comments: pt able to maintain static stand balance for approx 30 secs to 1 min with SBA unable to maintain with any challenge, or with any weight shifting. Functional Mobility - Bed Mobility Rolling R/L: Min Assist Scooting: Mod Assist, 2 person assist Sit to Supine: Mod Assist, 1 person assist - Transfers Sit to Stand: Min Assist, Mod Assist, 1 person assist, 2 person assist Stand to Sit: Min Assist, 1 person assist, 2 person assist - Safety Awareness Safety Awareness: Fair Ambulation - Ambulation Assistive Device Used: Rolling Walker Orthotic/Prosthetic Device: No Distance: 3-5 steps Assistance needed with Ambulation: Min Assist, 2 person assist Gait Deviations: Forward posture, Short stride Ambulation Comments: pt amb with flexed posture and decreased step length. pt very anxious about falling afraid her legs with "give out" Factors Affecting Ambulation: Decreased Balance, Breathing/O2 Saturation, Pain, Weakness, Decreased Safety, Limited Endurance Treatment time - Time with patient Total treatment time: 28 Patient Education - Education Patient Education: Activity Modification, Education of Plan of Care Teaching Recipient: Patient Teaching Methods: Discussion, Demonstration (Discussed with patient importance of participation with PT and being out of bed more during the day.) Assessment - Assessment Problem List:: Decreased level of function, Requires training/education, Decreased safety/Risk of falls, Weakness, Pain limits previous level of function Rehab Potential: Good Further Therapy Indicated?: Yes Short Term Goals GOAL #1: pt demonstrate independence with rolling and bridging. Goal to be met by: 05/19/17 GOAL #2: pt transfer sup to/from sit to/from stand min x 1 Goal to be met by: 05/19/17 GOAL #3: pt amb with rwx 75ft with CGA to min x 1 with no LOB Goal to be met by: 05/19/17 Comments:: Pt amb 132' today [employer] Goals GOAL #1: pt transfer sup to/from sit to/from stand independently Goal to be met by: 05/22/17 GOAL #2: pt amb with rwx 150ft with SBA with no LOB Goal to be met by: 05/22/17 GOAL #3: pt with pain <6/10 in Lumbar area, with activity Goal to be met by: 05/22/17 Plan Plan of Care: Therapeutic EX, Therapeutic Activity, Self-Care/Home Management Other:: gait training Frequency of Treatment: 1-2 X day, as tolerated Duration of Treatment: 6 days Anticipated Discharge Destination: possible LTC Has the Physician been added for Co-signature?: Yes
--- NOTE | 2017-05-16 15:05 | PN ---
DATE OF SERVICE: 05/15/17 SUBJECTIVE: 76-year-old white female hospitalized with bilateral sciatica. The patient was extremely weak, unable to get up. The patient's other problem is hypoxemia which seems to have resolved. She had what looks like allergic bronchitis and/ or aspiration bronchitis with history of hiatal hernia. The patient was recently hospitalized on 03/18/17 with bilateral sciatica with leg weakness and is followed by Dr. Avila. The patient says she is feeling a lot better. She is able to walk. PHYSICAL EXAMINATION: VITAL SIGNS: Temperature 98, pulse 65, respiratory rate 16, BP 130/76, pulse ox 97%. HEENT: Head normocephalic, atraumatic. Eyes: Extraocular muscles are intact. Pupils are equal, round and reactive to light and accommodation. Ears: No lesions. Nose appeared normal. Throat: No exudate or erythema. NECK: Supple. No JVD, no carotid bruit. No lymphadenopathy or thyromegaly. LUNGS: Decreased breath sounds but clear to auscultation. Percussion note normal. Chest symmetrical. HEART: S1, S2, no S3. No murmurs. No cyanosis or clubbing. No ascites. Pulses: Dorsalis pedis and posterior tibial pulses +1 to +2 both sides. ABDOMEN: Soft. Nontender. Bowel sounds active. No CVA tenderness. No mass felt. EXTREMITIES: No edema. Full range of motion of all extremities, equal. NEUROLOGIC: No focal deficit. Cranial nerves II through XII are grossly intact. No headache, no double vision or headache. SKIN: Not dry. Intact. Turgor - normal. LYMPHATIC: No palpable lymph nodes/no lymphedema. MUSCULOSKELETAL: Normal joints with no swelling. Muscle tone is normal. LABS: Hemoglobin 10.4, hematocrit 31, WBC 5,800, normal differential. Creatinine 1.5, BUN 30, potassium 5.4. ASSESSMENT: 1. BILATERAL SCIATICA WITH RADICULOPATHY SEEMS TO BE IMPROVING. PLAN: Continue nonsteroidal antiinflammatory Toradol CONDITION: Stable. Note: Will monitor the patient's potassium, kidney function and CBC, arterial blood gases. May need an echocardiogram to evaluate her cardiac function and respiratory status with PFT. TIME SPENT: More than 30 minutes. Plan and coordination of the patient's care discussed in the presence of nurse. JOAQUIM
[2017-05-16] MEDS: NEURONTIN PO SCH (20:47)
[2017-05-16] MEDS: ULTRAM PO PRN (20:47)
[2017-05-17] MEDS: TYLENOL PO PRN (03:15)
[2017-05-17] MEDS: SOLU-MEDROL 125 MG IVP SCH ×3 (05:45→20:22)
[2017-05-17] MEDS: PROTONIX PO SCH (05:45)
[2017-05-17] MEDS: HYDROCHLOROTHIAZIDE PO SCH (09:31)
[2017-05-17] MEDS: FERROUS SULFATE PO SCH ×2 (09:31→20:23)
[2017-05-17] MEDS: LOVENOX SUBCUT SCH (09:31)
[2017-05-17] MEDS: ZEBETA PO SCH (09:31)
[2017-05-17] MEDS: COZAAR PO SCH (09:32)
[2017-05-17] MEDS: ULTRAM PO PRN ×2 (09:32→19:27)
[2017-05-17] MEDS: LEXAPRO PO SCH (09:32)
[2017-05-17] MEDS: ASPIRIN CHEWABLE PO SCH (09:32)
--- NOTE | 2017-05-17 11:20 | PCM.PROG ---
Attending Provider: ATTENDING PROVIDER: Dr. YUE TEIXEIRA This patient is seen with Gem Gomez, Nurse Practitioner. DATE OF SERVICE: 05/17/17 SUBJECTIVE: This 76 year old WHITE/ F was hospitalized 05/14/17. The patient is lying in bed, alert. She has an appointment with with Dr. Gutierrez on 06/03/17. Her back pain is somewhat better. REVIEW OF SYSTEMS: CONSTITUTIONAL: No night sweats. No fatigue, malaise, lethargy. No fever or chills. HEENT: Eyes: No visual changes. No eye pain. No eye discharge. ENT: No runny nose. No epistaxis. No sinus pain. No odynophagia. No congestion. RESPIRATORY: No cough, no congestion. No hemoptysis. No shortness of breath. CARDIOVASCULAR: No angina symptoms. No CHF symptoms. No atypical chest pain for CAD. No palpitations. No orthopnea.. GASTROINTESTINAL: No abdominal pain. No nausea or vomiting. No diarrhea or constipation. No hematemesis. No hematochezia. GENITOURINARY: No urgency. No frequency. No dysuria. No hematuria. No obstructive symptoms. No discharge. No pain. No significant abnormal bleeding. MUSCULOSKELETAL: Leg weakness and back pain. NEUROLOGICAL: Awake, alert, oriented to time, place and person. No headache. No neck pain. No syncope. No seizures. No dizziness. PSYCHIATRIC: Not anxious. No depression. No suicidal thoughts. No homicidal thoughts. SKIN: No rash. No lesions. No wounds. ENDOCRINE: No unexplained weight loss. No weight gain. HEMATOLOGIC/LYMPHATIC: No anemia. No purpura. No petechiae. No prolonged or excessive bleeding. No palpable lymph nodes. PHYSICAL EXAMINATION: GENERAL: The patient is awake, alert and oriented, lying in bed in no distress. VITAL SIGNS: Temperature 98.6 F, Pulse 89, Respiratory Rate 14, BP 151/86, Pulse Ox 96% HEENT: Head normocephalic, atraumatic. Eyes: Extraocular muscles are intact. Pupils are equal, round and reactive to light and accommodation. Ears: No lesions. Nose appeared normal. Throat: No exudate or erythema. NECK: Supple. No JVD, no carotid bruit. No lymphadenopathy or thyromegaly. LUNGS: Clear to auscultation. Percussion note normal. Chest symmetrical. HEART: S1, S2, no S3. No murmurs. No cyanosis or clubbing. No ascites. Pulses: Dorsalis pedis and posterior tibial pulses +1 to +2 both sides. ABDOMEN: Soft. Non-tender. Bowel sounds active. No CVA tenderness. No mass felt. EXTREMITIES: No edema. Full range of motion of all extremities, equal. NEUROLOGIC: No focal deficit. Cranial nerves II through XII are grossly intact. No headache, no double vision or headache. SKIN: Not dry. Intact. Turgor-normal. LYMPHATIC: No palpable lymph nodes/no lymphedema. MUSCULOSKELETAL: Normal joints with no swelling. Muscle tone is normal. LAB REVIEW: 05/16/17 04:47 05/16/17 04:47 ASSESSMENT: 1. Intractable back pain 2. Bilateral sciatica with leg weakness 3. Severe DJD L-spine PLAN: 1. Continue PT 2. Ultram for pain 3. Discussed home arrangements will evaluate for swing bed Plan and coordination of the patient's care discussed in the presence of Inspector Process and nurse. CONDITION: Stable SCRIBED BY: YANA HAZEL [employer] scribed while in presence of service performed by Dr. Teixeira/Gem Gomez APRN on 05/17/17 ([id number])
--- NOTE | 2017-05-17 14:54 | HP ---
DATE OF SERVICE: 05/14/17 REASON FOR HOSPITALIZATION: Back pain HISTORY OF PRESENT ILLNESS: 76-year-old white female came to the emergency room with complaint of severe low back pain rated as 9 to 10 on a scale of 1 to 10. The patient was unable to get up, do anything. The patient lives alone and has severe DJD of the spine followed by neurosurgeon. The patient had a couple of hospitalizations for the same problem in the past. At that time, she was advised to go to the correction but she was not accepted by any correction because of problem with her past legal history. On further questioning, the patient states she has allergic bronchitis lately with clear sputum. PAST MEDICAL/SURGICAL HISTORY: Severe DJD of the lumbar spine Generalized osteoarthritis Hypertension Neuropathy Reflux disease Depression Anemia Chronic lung disease Hysterectomy Bilateral knee replacement REVIEW OF SYSTEMS: CONSTITUTIONAL: No night sweats. No fatigue, malaise, lethargy. No fever or chills. HEENT: Eyes: No visual changes. No eye pain. No eye discharge. ENT: No runny nose. No epistaxis. No sinus pain. No sore throat. No odynophagia. No ear pain. No congestion. RESPIRATORY: No cough, no congestion. No hemoptysis. No shortness of breath. CARDIOVASCULAR: No angina symptoms. No CHF symptoms. No atypical chest pain for CAD. No palpitations. No orthopnea. GASTROINTESTINAL: No abdominal pain. No nausea or vomiting. No diarrhea or constipation. No hematemesis. No hematochezia. GENITOURINARY: No urgency. No frequency. No dysuria. No hematuria. No obstructive symptoms. No discharge. No pain. No significant abnormal bleeding. MUSCULOSKELETAL: Back pain, severe rated as a 8 to 9 on scale of 1 to 10, numbness in the lower extremities as usual. NEUROLOGICAL: No headache. No neck pain. No syncope. No seizures. No dizziness. PSYCHIATRIC: Not anxious. No depression. No suicidal thoughts. No homicidal thoughts. SKIN: No rash. No lesions. No wounds. ENDOCRINE: No unexplained weight loss. No weight gain. HEMATOLOGIC/LYMPHATIC: No anemia. No purpura. No petechiae. No prolonged or excessive bleeding. No palpable lymph nodes. PERSONAL/FAMILY/SOCIAL HISTORY: The patient lives by herself, . Nonsmoker. No alcohol abuse. She does all activities of daily living. She cooks for herself. MEDICATIONS: Aspirin 81 mg p.o. daily Zebeta 5 mg p.o. daily Neurontin 300 mg at bedtime Losartan/Hydrochlorothiazide 12.5 daily Protonix 40 mg daily Trazodone 1 to 2 mg at night Lexapro 20 mg p.o. daily Ferrous Sulfate 325 mg p.o. daily Tramadol 50 mg p.o. twice a day ALLERGIES: BACTRIM PHYSICAL EXAMINATION: GENERAL: The patient is oriented to time, place and person. VITAL SIGNS: Temerature 99, pulse 60, respiratory rate 16, BP 106/60, pulse ox 90% on room air. HEENT: Head normocephalic, atraumatic. Eyes: Extraocular muscles are intact. Pupils are equal, round and reactive to light and accommodation. Ears: No lesions. Nose appeared normal. Throat: No exudate or erythema. NECK: Supple. No JVD, no carotid bruit. No lymphadenopathy or thyromegaly. LUNGS: Decreased breath sounds but clear to auscultation. Percussion note normal. Chest symmetrical. HEART: S1, S2, no S3. No murmurs. No cyanosis or clubbing. No ascites. Pulses: Dorsalis pedis and posterior tibial pulses +1 to +2 both sides. ABDOMEN: Soft. Nontender. Bowel sounds active. No CVA tenderness. No mass felt. EXTREMITIES: No pedal edema. Full range of motion of all extremities, equal. NEUROLOGIC: No focal deficit. Cranial nerves II through XII are grossly intact. No headache, no double vision or headache. SKIN: Not dry. Intact. Turgor - normal. LYMPHATIC: No palpable lymph nodes/no lymphedema. MUSCULOSKELETAL: Normal joints with no swelling. Muscle tone is normal. ASSESSMENT: 1. SEVERE BACK PAIN WITH DJD SPINE WITH BILATERAL SCIATICA WITH INABILITY TO WALK AND STRAIGHT LEG RAISING TEST POSITIVE BILATERALLY FOLLOWED BY NEUROSURGEON 2. OBESITY 3. HYPOXEMIA NOTED WITH PROBABLY MILD BRONCHITIS, ALLERGIC 4. HYPERTENSION 5. DEPRESSION PLAN: 1. Steroids as prescribed as antiinflammatory, Toradol 30 mg IV q.8hr 2. Continue Neurontin 3. IV fluids 4. Will do an EKG 5. Will do ABG 6. Oxygen 1 to 2L/cannula/min 7. Hold Hyzaar if the systolic blood pressure is less than 130 8. Will also do chest x-ray 9. Will do routine CBC and CMP, T4 and TSH 10. The patient is advised to go to correction but she may not be able to because of her personal record that she has. PROGNOSIS: Guarded. The patient is followed by neurosurgeon. CONDITION: Stable. TIME SPENT: More than 70 minutes. JOAQUIM
[2017-05-17] MEDS: NEURONTIN PO SCH (20:22)
[2017-05-17] MEDS ORDERED: COLACE PO SCH (21:00)
[2017-05-18] MEDS: SOLU-MEDROL 125 MG IVP SCH ×2 (04:35→12:55)
[2017-05-18] MEDS: PROTONIX PO SCH (05:46)
[2017-05-18] MEDS: ASPIRIN CHEWABLE PO SCH (08:38)
[2017-05-18] MEDS: ZEBETA PO SCH (08:40)
[2017-05-18] MEDS: LEXAPRO PO SCH (08:40)
[2017-05-18] MEDS: COZAAR PO SCH (08:41)
[2017-05-18] MEDS: HYDROCHLOROTHIAZIDE PO SCH (08:41)
[2017-05-18] MEDS: FERROUS SULFATE PO SCH (08:41)
[2017-05-18] MEDS: LOVENOX SUBCUT SCH (08:42)
[2017-05-18 09:14] LABS: BASOPHILS % (AUTO) 0.1 % (0.0-3.0); HEMOGLOBIN 11.6 g/dl (12.0-16.0); IMMATURE GRANULOCYTE % (AUTO) 0.9 % (0.0-5.0); LYMPHOCYTES # (AUTO) 0.5 K/uL (0.60-3.4); LYMPHOCYTES % (AUTO) 4.4 (10.0-50.0); MEAN CORPUSCULAR HEMOGLOBIN 30.3 pg (27.0-31.0); MEAN CORPUSCULAR HGB CONC 34.1 (31.8-35.4); MEAN CORPUSCULAR VOLUME 88.8 fl (81.0-99.0); MONOCYTES # (AUTO) 0.2 K/uL (0.4-2.0); NEUTROPHILS % (AUTO) 92.6; PLATELET COUNT 204 10^3/uL (140-440); RED BLOOD COUNT 3.83 10^6/ul (4.20-5.40); WHITE BLOOD COUNT 10.74 K/ul (4.6-10.2)
[2017-05-18 09:33] LABS: ALBUMIN 3.3 g/dL (3.4-5.0); ALBUMIN/GLOBULIN RATIO 1.03; ANION GAP 13.6; BILIRUBIN,TOTAL 0.33 mg/dL (0.00-1.20); BUN/CREATININE RATIO 28.18; CALCIUM 9.5 mg/dL (8.2-10.2); CREATININE 1.49 mg/dL (0.60-1.30); POTASSIUM 3.6 mmol/L (3.5-5.10); TOTAL PROTEIN 6.5 g/dL (5.8-8.1)
[2017-05-18 10:51] VITALS: BP 128/64; TEMP 98.9
[2017-05-18] MEDS: ULTRAM PO PRN (11:14)
--- NOTE | 2017-05-18 11:57 | PCM.PROG ---
Attending Provider: ATTENDING PROVIDER: Dr. YUE TEIXEIRA This patient is seen with Gem Gomez, Nurse Practitioner. DATE OF SERVICE: 05/18/17 SUBJECTIVE: This 76 year old WHITE/ F was hospitalized 05/14/17. The patient is lying in bed, alert. She was up and about yesterday. She has an appointment with Dr. Gutierrez on 06/03/17. We were unable to get rehab placement due to a criminal record. Discussed going home with family members and/or Home Health. The patient demonstrates understanding. She has been living alone and performing all ADLs. REVIEW OF SYSTEMS: CONSTITUTIONAL: No night sweats. No fatigue, malaise, lethargy. No fever or chills. HEENT: Eyes: No visual changes. No eye pain. No eye discharge. ENT: No runny nose. No epistaxis. No sinus pain. No odynophagia. No congestion. RESPIRATORY: No cough, no congestion. No hemoptysis. No shortness of breath. CARDIOVASCULAR: No angina symptoms. No CHF symptoms. No atypical chest pain for CAD. No palpitations. No orthopnea.. GASTROINTESTINAL: No abdominal pain. No nausea or vomiting. No diarrhea or constipation. No hematemesis. No hematochezia. GENITOURINARY: No urgency. No frequency. No dysuria. No hematuria. No obstructive symptoms. No discharge. No pain. No significant abnormal bleeding. MUSCULOSKELETAL: Back pain and weakness. NEUROLOGICAL: Awake, alert, oriented to time, place and person. No headache. No neck pain. No syncope. No seizures. No dizziness. PSYCHIATRIC: Not anxious. No depression. No suicidal thoughts. No homicidal thoughts. SKIN: No rash. No lesions. No wounds. ENDOCRINE: No unexplained weight loss. No weight gain. HEMATOLOGIC/LYMPHATIC: No anemia. No purpura. No petechiae. No prolonged or excessive bleeding. No palpable lymph nodes. PHYSICAL EXAMINATION: GENERAL: The patient is awake, alert and oriented, lying in bed in no distress. VITAL SIGNS: Temperature 98.2 F, Pulse 52, Respiratory Rate 16, BP 128/75, Pulse Ox 93% HEENT: Head normocephalic, atraumatic. Eyes: Extraocular muscles are intact. Pupils are equal, round and reactive to light and accommodation. Ears: No lesions. Nose appeared normal. Throat: No exudate or erythema. NECK: Supple. No JVD, no carotid bruit. No lymphadenopathy or thyromegaly. LUNGS: Diminished breath sounds. Clear to auscultation. Percussion note normal. Chest symmetrical. HEART: S1, S2, no S3. No murmurs. No cyanosis or clubbing. No ascites. Pulses: Dorsalis pedis and posterior tibial pulses +1 to +2 both sides. ABDOMEN: Soft. Non-tender. Bowel sounds active. No CVA tenderness. No mass felt. EXTREMITIES: No edema. Full range of motion of all extremities, equal. NEUROLOGIC: No focal deficit. Cranial nerves II through XII are grossly intact. No headache, no double vision or headache. SKIN: Not dry. Intact. Turgor-normal. LYMPHATIC: No palpable lymph nodes/no lymphedema. MUSCULOSKELETAL: Normal joints with no swelling. Muscle tone is normal. LAB REVIEW: 05/16/17 04:47 05/16/17 04:47 ASSESSMENT: 1. Intractable back pain 2. Bilateral sciatica with leg weakness 3. Severe DJD L-spine PLAN: 1. Repeat CBC/CMP today before discharge. 2. D/C home 3. Home Health for nursing assessment, PT/OT. The patient is in agreement. 4. The patient would benefit from a walker to help with ADLs and fall prevention due to unstable gait from leg weakness related to back pain. Plan and coordination of the patient's care discussed in the presence of Wet End Operator and nurse. CONDITION: Stable SCRIBED BY: YANA HAZEL Health Physics Technician scribed while in presence of service performed by Dr. Teixeira/Gem Gomez APRN on 05/18/17 ([id number])
--- NOTE | 2017-05-18 13:12 | CM.DICTOOL ---
ADMISSION: 05/14/17 12:57 DISCHARGE: 05/18/17 DATE OF SERVICE: 05/18/17 FINAL DIAGNOSIS INTRACTABLE BACK PAIN MULTILEVEL DEGENERATIVE CHANGES OF THE L-SPINE WITH NEURAL FORAMINAL NARROWING NEUROPATHY HYPOKALEMIA, RESOLVED DYSLIPIDEMIA HYPERTENSION AORTOILIAC ATHEROSCLEROSIS ANEMIA GERD SMALL HIATAL HERNIA DIVERTICULOSIS DDD-SPINE SCOLIOSIS OF THE SPINE RESTLESS LEG SYNDROME ANXIETY/DEPRESSION BREAST IMPLANTS LEFT KNEE ARTHROPLASTY X1 LAST VITALS Temp Pulse Resp BP Pulse Ox 98.9 F 75 20 128/64 92 L 05/18/17 10:00 05/18/17 10:00 05/18/17 10:00 05/18/17 10:00 05/18/17 10:00 ACTIVE MEDICATIONS Aspirin (Aspirin Chewable) 81 mg PO DAILYWM [facility] Last Admin: 05/18/17 08:38 Dose: 81 mg Bisoprolol Fumarate (Zebeta) 5 mg PO DAILY [facility] Last Admin: 05/18/17 08:40 Dose: 5 mg Escitalopram Oxalate (Lexapro) 20 mg PO DAILY [facility] Last Admin: 05/18/17 08:40 Dose: 20 mg Ferrous Sulfate (Ferrous Sulfate) 324 mg PO BID [facility] Last Admin: 05/18/17 08:41 Dose: 324 mg Gabapentin (Neurontin) 300 mg PO BEDTIME [facility] Last Admin: 05/17/17 20:22 Dose: 300 mg Losartan Potassium/HCTZ (Hyzaar) 100-12.5 mg PO DAILY [facility] Last Admin: 05/18/17 08:41 Dose: 100-12.5 mg Pantoprazole Sodium (Protonix) 40 mg PO QDAC [facility] Last Admin: 05/18/17 05:46 Dose: 40 mg Tramadol HCl (Ultram) 50 mg PO BID PRN PRN Reason: moderate pain Last Admin: 05/18/17 11:14 Dose: 50 mg Trazodone HCl (Desyrel) 50 - 100 mg PO BEDTIME PRN PRN Reason: insomina Last Admin: 05/17/17 20:23 Dose: 100 mg ALLERGIES sulfamethoxazole [From Bactrim] Adverse Reaction (Verified 05/14/17 10:59) trimethoprim [From Bactrim] Adverse Reaction (Verified 05/14/17 10:59) NEW PRESCRIPTIONS: NO NEW MEDICATION PRESCRIPTIONS PRESCRIPTION FOR A ROLLING WALKER WAS PROVIDED TO [facility] SMOKING: NEVER SMOKER DISEASE SPECIFIC EDUCATION: BACK PAIN HOME HEALTH: NURSING, PT/OT SERVICES USE OF A ROLLING WALKER HOME MEDICATIONS FOLLOW UP LAB REVIEW: 05/18/17 08:40 05/18/17 08:40 05/18/17 08:40: Sodium 138, Potassium 3.6, Chloride 100, Carbon Dioxide 28, Anion Gap 13.6, BUN 42 H, Creatinine 1.49 H, Estimated GFR (MDRD) 34.00, BUN/ Creatinine Ratio 28.18, Glucose 147 H, Calcium 9.5, Total Bilirubin 0.33, AST 11 L, ALT 12, Alkaline Phosphatase 55, Total Protein 6.5, Albumin 3.3 L, Globulin 3.2, Albumin/Globulin Ratio 1.03 05/18/17 08:40: WBC 10.74 H D, RBC 3.83 L, Hgb 11.6 L, Hct 34.0 L, MCV 88.8, MCH 30.3, MCHC 34.1, RDW Coeff of [place] 12.8, Plt Count 204, Immature Gran % (Auto ) 0.9, Neut % (Auto) 92.6, Lymph % (Auto) 4.4 L, [place] % (Auto) 2.0, Eos % (Auto ) 0.0, Baso % (Auto) 0.1, Immature Gran # (Auto) 0.1, Neut # 10.0 H, Lymph # 0.5 L, Forest # 0.2 L, Eos # 0.0, Baso # 0.0 PLAN: DISCHARGE HOME TODAY RETURN TO SEE DR. GOMEZ IN 5-7 DAYS. PLEASE PHONE HIS OFFICE TO SCHEDULE YOUR FOLLOW UP APPOINTMENT ([phone]) KEEP YOUR APPOINTMENT WITH DR. ALEC JAMIL ON 06/03/17 AT 10:50 A.M. RESUME YOUR HOME MEDICATIONS PER LIST PROVIDED BY THE NURSING STAFF NO NEW PRESCRIPTIONS [facility] WILL CONTACT YOU TO SCHEDULE HOME VISITS TO PROVIDE NURSING SERVICES, PHYSICAL AND OCCUPATIONAL THERAPY [phone] [facility] WILL DELIVER YOUR ROLLING WALKER TO THE HOSPITAL JUST PRIOR TO DISCHARGE. [phone] SUMMARY THE PATIENT IS ALERT AND ORIENTED X3. SHE CURRENTLY RESIDES AT HOME ALONE. HER BROTHER, GREGG CHRISTIE, IS VERY SUPPORTIVE OF HER NEEDS WHEN NECESSARY. SHE HAS A LIFE ALERT SYSTEM, EXTENDED REACH TOOL AT HOME FOR USE THERE. WE HAVE SCHEDULED [facility] FOR NURSING SERVICES TO COMPLETE GENERAL ASSESSMENT AND PHYSICAL THERAPY/OCCUPATIONAL THERAPY TO SEE MS. MERINO IN HER HOME ENVIRONMENT. WE HAVE ALSO ARRANGED FOR HER TO HAVE A ROLLING WALKER PRIOR TO DISCHARGE. HER BROTHER, GREGG, WILL ASSIST WITH NEEDS WELL. MS. MERINO IS AWARE AND AGREEABLE FOR DISCHARGE PLANS TODAY. SHE WILL FOLLOW UP THROUGH THE OFFICE LISTED ABOVE. CURRENT CODE STATUS FULL CODE MIGEL VELEZ APRN YUE GOMEZ M.D.
--- NOTE | 2017-05-18 15:45 | PN ---
DATE OF SERVICE: 05/18/17 SUBJECTIVE: 76-year-old white female hospitalized with intractable back pain. The patient has sciatica followed by neurosurgeon, already seen once, has followup appointment. The patient's condition is stable. She is up and about with help. Vitals are stable with normal cardiovascular system. The patient will be discharged. The patient was seen and examined with the nurse practitioner. CONDITION: Stable at time of discharge. The patient has been told about chronic kidney disease and to avoid nonsteroidal antiinflammatories. The hemoglobin is 10.7, hematocrit 31. She is advised colonoscopy. She has declined. WBC count has been elevated because of steroids. TIME SPENT: More than 30 minutes. Plan and coordination of the patient's care discussed in the presence of nurse. JOAQUIM
--- NOTE | 2017-05-18 15:46 | PN ---
CODING FOR BILLING ADMISSION DAY 05/14/17 LEVEL 5 05/15/17 INTERMEDIATE 05/16/17 INTERMEDIATE 05/17/17 BRIEF 05/18/17 DISCHARGE MTDD
--- NOTE | 2017-05-22 12:12 | DS ---
DATE OF SERVICE: 05/18/17 FINAL DIAGNOSIS: 1. INTRACTABLE BACK PAIN 2. MULTILEVEL DEGENERATIVE CHANGES OF THE L-SPINE WITH NEUROFORAMINAL NARROWING 3. NEUROPATHY 4. HYPOKALEMIA RESOLVED 5. DYSLIPIDEMIA 6. HYPERTENSION 7. AORTOILIAC ATHEROSCLEROSIS 8. ANEMIA 9. GERD 10. SMALL HIATAL HERNIA 11. DIVERTICULOSIS 12. DDD SPINE 13. SCOLIOSIS OF THE SPINE 14. RESTLESS LEG SYNDROME 15. ANXIETY/DEPRESSION 16. BREAST IMPLANTS 17. LEFT KNEE ARTHROPLASTY 18. TIMES ONE DISCHARGE INSTRUCTIONS: Followup appointment: Return to see Dr. Teixeira in 5 to 7 days. Please phone his office to schedule followup appointment [phone]. Keep your appointment with Dr. Jonny Gutierrez on 06/03/17 at 10:50 a.m. [facility] will contact you to schedule home visits to provide nursing services, physical and occupational therapy, [phone]. [facility] will deliver your rolling walker to the hospital just prior to discharge. [phone]. MEDICATIONS AT DISCHARGE: Aspirin 81 mg p.o. daily with meal [facility] Zebeta 5 mg p.o. daily [facility] Lexapro 20 mg p.o. daily [facility] Ferrous Sulfate 324 mg p.o. b.i.d. [facility] Neurontin 300 mg p.o. bedtime [facility] Hyzaar 100-12.5 mg p.o. daily [facility] Protonix 40 mg p.o. q.d a.c. [facility] Ultram 50 mg p.o. b.i.d. p.r.n. Desyrel 50-100 mg p.o. bedtime p.r.n. NEW PRESCRIPTIONS: No new medications prescriptions Prescription for a rolling walker was provided to [facility] DIET INSTRUCTIONS: Heart Healthy ACTIVITY: [facility] for PT/OT, rolling walker for safety. SMOKING: Never a smoker DISEASE SPECIFIC EDUCATION: Back pain Home Health: Nursing, PT/OT services Use of a rolling walker Home medications Followup HOSPITAL COURSE: This is a 76-year-old white female who presented to the emergency room complaining of low back pain and leg weakness. She had fallen walking home from [place] [employer] and was experiencing severe leg weakness. She has been hospitalized for this before. She has previously seen Dr. Gutierrez approximately one month earlier and has another appointment with Dr. Gutierrez, the back specialist on 06/03/17. She states that they have discussed surgery in order to repair her back which would then subsequently improve her leg weakness. She was admitted, placed on IV steroids, Solu-Medrol 125 mg q.8hr along with Toradol 30 mg IV q.8hr for pain. Since she was admitted her pain has improved after resting for the past several days and IV steroids. Her leg weakness has improved due to improved back pain. She has been evaluated and we will send her home with a walker. She does have a criminal record and therefore we cannot find a nursing facility or rehabilitation facility to take her due to this history of a criminal record. Physical Therapy evaluated her here which found she would qualify for physical therapy at home. We have set up [facility] to take care of her and again, have sent her home with a walker. Her brother is willing to stay with her for a little while. He lives here locally. We have discussed fall precautions, the importance of using the walker, the importance of staying close to home until she can be reevaluated by Dr. Gutierrez and they can get surgery set up. Her pain has been under control for the past two days and again, she has been getting around more. Yesterday she was up and about without assistance, just used a walker and this morning she was sitting up in a bed and had not been using the walker. Her pain has been very well controlled with Ultram. She has not been using the Toradol. We will send her home with Ultram and walker and we will see her in the office next week and she is instructed to keep her appointment with Dr. Gutierrez 06/03/17. Her labs and vital signs have been stable. She does have a history of chronic kidney disease with creatinine of 1.4 today which is normal for her. She has an elevated white count of 16,000 which is due to IV steroid use. Vital signs at discharge are steady with temperature 98.2, heart rate 52, respiratory rate 16, BP 128/75, pulse ox 94%. She is agreeable and discharged home in stable condition. TIME SPENT: More than 60 minutes. JOAQUIM
== END 2017-05-18 14:10 | disposition home or self-care (01) | DRG 552 ==
LOC: ED 10:51 → MEDSURG B 12:57
PROVIDERS: ADMIT Internal Medicine; ATTEND Internal Medicine
DX: M54.42 Lumbago with sciatica, left side (principal); M54.41 Lumbago with sciatica, right side; G89.29 Other chronic pain; M51.36 Other intervertebral disc degeneration, lumbar region; M47.896 Other spondylosis, lumbar region; M41.86 Other forms of scoliosis, lumbar region; M62.81 Muscle weakness (generalized); R09.02 Hypoxemia; I10 Essential (primary) hypertension; G62.9 Polyneuropathy, unspecified; E87.6 Hypokalemia; E78.5 Hyperlipidemia, unspecified; J45.909 Unspecified asthma, uncomplicated; I70.8 Atherosclerosis of other arteries; D64.9 Anemia, unspecified; K21.9 Gastro-esophageal reflux disease without esophagitis; K44.9 Diaphragmatic hernia without obstruction or gangrene; K57.90 Diverticulosis of intestine, part unspecified, without perforation or abscess without bleeding; G25.81 Restless legs syndrome; F41.8 Other specified anxiety disorders; R26.2 Difficulty in walking, not elsewhere classified; Z79.899 Other long term (current) drug therapy
CPT/HCPCS: 36415; 80053; 81001; 82550; 82553; 82803; 83874; 84484; 85007; 85025; 87086; 93005; 93010; 96372; 99284

== ENCOUNTER 2017-06-11 15:36 | Outpatient (CLI) | END 2017-06-11 15:37 | disposition home or self-care (01) | LOC: AMBL 15:36 | PROVIDERS: ATTEND Emergency Medicine | DX: Z04.3 Encounter for examination and observation following other accident (principal); W19.XXXA Unspecified fall, initial encounter ==

== ENCOUNTER 2017-12-15 09:44 | Emergency (ER) | payer OTHER ==
[2017-12-15 09:45] VITALS: BMI 28.3
[2017-12-15 09:57] VITALS: BP 138/78; TEMP 99.1
--- NOTE | 2017-12-15 10:01 | ED.PDOC ---
General ED Provider: Dr. BRYNN BEYER Chief Complaint: Fall Stated Complaint: Low Back Pain and Knee Pain. States knees gave out resulting in a fall landing on buttocks. Hx TKA biltat remote past. Now experiencing aching in low back without radiculating features Time Seen by Physician: 09:55 Mode of Arrival: Walk-In Information Source: Patient Primary Care Provider: YUE GOMEZ Nursing and Triage Documentation Reviewed and Agree: Yes Reviewed sepsis parameters & appropriate labs ordered?: Yes System Inflammatory Response Syndrome: Not Applicable Sepsis Protocol: For patient's 13 years and over: Temp is 96.8 and below OR 101 and greater Pulse >90 BPM Resp >20/minute Acutely Altered Mental Status Are patient's symptoms suggestive of a new infection, such as: -Pneumonia -Skin, Soft Tissue -Endocarditis -UTI -Bone, Joint Infection -Implantable Device -Acute Abdominal Infection -Wound Infection -Meningitis -Blood Stream Catheter Infection -Unknown Musculoskeletal Complaint Exam - Lower Extremity Complaint/Exam Location of Pain: Reports: Knee (BILAT) Mechanism of Injury: Reports: Trauma Symptoms Are: Still present Onset of Pain: Reports: Immediate Initial Severity: Moderate Current Severity: Mild Location: Reports: Diffuse Character: Reports: Dull, Aching Alleviating: Reports: Rest Aggravating: Reports: Movement Able to Bear Weight: Yes Associated Signs and Symptoms: Denies: Swelling, Redness, Bruising, Fever, Weakness, Numbness, Tingling Related History: Reports: Similar episode. Denies: Occupational injury DVT Risk Factors: Reports: None Septic Arthritis Risk Factors: Reports: None Related Surgical History: Reports: None Lower Extremity Findings: Absent: Swelling, Ecchymosis, Abnormal contour, Rotation, Ligamentous instability, Laceration, Erythema, Warmth, Other joint pain, Tenderness, Limited range of motion Felicita's Sign Present: No Differential Diagnoses: Strain - Back Pain Complaint/Exam Mechanism of Injury: Reports: Trauma Symptoms Are: Still present Timing: Constant Episodes Lasting: Minutes Initial Severity: Moderate Current Severity: Moderate Location: Reports: Diffuse Character: Reports: Aching, Spasmodic, Stiffness Aggravating: Reports: Movements Alleviating: Reports: Rest Associated Signs and Symptoms: Denies: Swelling, Redness, Bruising, Fever, Weakness, Numbness, Tingling, Abdominal pain, Flank pain, Bladder incontinence, Bowel incontinence, Weight loss, Pain with weight bearing Related History: Reports: Similar episode. Denies: Occupational injury TAD Risk Factors: Reports: None AAA Risk Factors: Reports: None Cauda Equina Risk Factors: Reports: None Epidural Abcess Risk Factors: Reports: None Related Surgical History: Reports: None Focal Tenderness: Yes (bilat LS region) Paraspinal Muscle Tenderness: Yes (R>L Lumbar region ) Paraspinal Muscle Spasm: No Scoliosis: No Lordosis: No Kyphosis: No SLR Test: Right Negative, Left Negative Hip Motion Testing Pain: Right Negative, Left Negative Focal Weakness: Present: None, RLE Focal Sensory Loss: Present: None Gait: Present: Normal Differential Diagnoses: Strain Review of Systems - Review Of Systems Constitutional: Reports: No symptoms Eyes: Reports: No symptoms Ears, Nose, Mouth, Throat: Reports: No symptoms Respiratory: Reports: No symptoms Cardiac: Reports: No symptoms GI: Reports: No symptoms : Reports: No symptoms Musculoskeletal: Reports: No symptoms Skin: Reports: No symptoms Neurological: Reports: No symptoms Endocrine: Reports: No symptoms Hematologic/Lymphatic: Reports: No symptoms All Other Systems: Reviewed and Negative Past Medical History - Past Medical History Endocrine: Reports: None Cardiovascular: Reports: Hypertension Respiratory: Reports: None Hematological: Reports: None Gastrointestinal: Reports: None Genitourinary: Reports: None Neuro/Psych: Reports: None Musculoskeletal: Reports: Arthritis Cancer: Reports: None Last Menstrual Period: N/A - Surgical History General Surgical History: Reports: Hysterectomy (BLADDER SUSPENSION), , Orthopedic (BILAT KNEE REPLACEMENT, ), Other (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) - Family History Family History: Reports: Unknown - Social History Smoking Status: Never smoker Hx Substance Use: No Alcohol Screening: Occasionally - Immunizations Tetanus Shot up to Date: Yes Physical Exam - Physical Exam Appearance: Well-appearing, No pain distress, Well-nourished Eyes: JACLYN, EOMI, Conjunctiva clear ENT: Ears normal, Nose normal, Oropharynx normal Respiratory: Airway patent, Breath sounds clear, Breath sounds equal, Respirations nonlabored Cardiovascular: RRR, Pulses normal, No rub, No murmur GI/: Soft, Nontender, No masses, Bowel sounds normal, No Organomegaly Musculoskeletal: Normal strength (Tenderness bilat LS region ), ROM intact, No edema, No calf tenderness Skin: Warm, Dry, Normal color Neurological: Sensation intact, Motor intact, Reflexes intact, Cranial nerves intact, Alert, Oriented Psychiatric: Affect appropriate, Mood appropriate Critical Care Note - Critical Care Note Total Time (mins): 0 Course - Course Orders, Labs, Meds: Orders Category Date Time Status CT LUMBAR SPINE W/O CONTRAST Stat RADS 12/15/17 09:59 Completed KNEE, LEFT 4 VIEWS Stat RADS 12/15/17 10:00 Completed KNEE, RIGHT 4 VIEWS Stat RADS 12/15/17 10:00 Completed Vital Signs: Temp Pulse Resp BP Pulse Ox 12/15/17 09:45 99.1 F 72 16 138/78 93 L Departure - Departure Time of Disposition: 11:50 Disposition: HOME SELF-CARE Discharge Problem: Low back strain, Chronic arthralgias of knees and hips Instructions: Low Back Strain (ED), Knee Pain (ED), Lower Back Exercises (ED) Condition: Good Pt referred to PMD for follow-up: Yes (DR GOMEZ IN 1 Week) IPMP verified?: No Additional Instructions: Take prescribed NSAID Ibuprofen for pain relief Ice to area of discomfort for 20 minutes twice daily Prescriptions: Ibuprofen [Motrin] 600 mg PO Q6H PRN #20 tablet PRN Reason: ankle joint pain Allergies/Adverse Reactions: Allergies sulfamethoxazole [From Bactrim] Adverse Reaction (Verified 12/15/17 09:49) trimethoprim [From Bactrim] Adverse Reaction (Verified 12/15/17 09:49) Home Medications: Ambulatory Orders Aspirin 81 mg PO DAILY 03/15/17 Bisoprolol Fumarate [Zebeta] 5 mg PO DAILY 03/15/17 Gabapentin [Neurontin] 300 mg PO BEDTIME 03/15/17 Losartan/Hydrochlorothiazide [Hyzaar 100-12.5 Tablet] 1 each PO DAILY 03/15/17 Pantoprazole Sodium [Protonix] 40 mg PO DAILY 03/15/17 Trazodone HCl 1 - 2 tab PO BEDTIME 03/15/17 Escitalopram Oxalate [Lexapro] 20 mg PO DAILY 05/14/17 Ferrous Sulfate [Iron] 325 mg PO BID 05/14/17 Tramadol HCl [Ultram] 50 mg PO BID PRN 05/14/17 Ibuprofen [Motrin] 600 mg PO Q6H PRN #20 tablet 12/15/17 Disposition Discussed With: Patient
--- NOTE | 2017-12-15 10:30 | DI ---
Exam: Four views of the right knee. Comparison: 02/10/2017. Reason for exam: Pain after fall. FINDINGS: No acute fracture or malalignment. Operative changes are seen after right knee arthroplas ty with patellar resurfacing. There is no evidence of hardware complication or periprosthetic fractu re. Impression: No acute fracture or dislocation in the right knee. No evidence of hardware complication .
--- NOTE | 2017-12-15 10:31 | DI ---
Exam: Four views of the left knee. Comparison: 02/10/2017. Reason for exam: Pain after fall. FINDINGS: No acute fracture or malalignment. Similar appearing operative changes are seen after lef t knee arthroplasty with patellar resurfacing. Moderate degenerative disease is seen in the patella. The joint spaces appear well maintained. Impression: No acute fracture or dislocation left knee with similar appearing degenerative disease. No evidence of hardware complication.
--- NOTE | 2017-12-15 10:49 | CT ---
EXAM: CT lumbar spine without contrast HISTORY: Low back pain after fall COMPARISON: None TECHNIQUE: CT abdomen pelvis performed without intravenous contrast. Coronal and sagittal reformatt ed images obtained. FINDINGS: Vertebral bodies normal height. No fracture. Multilevel marginal osteophyte formation. Multilevel moderate to severe intervertebral disc space narrowing throughout the lumbar spine with re lative sparing L5-S1. Multilevel facet arthrosis. Trace anterolisthesis of L1 on L2 and L2 on L3. Mild to moderate leftward curvature lumbar spine. Sacroiliac joints intact with mild degenerative ch helio. Aorta normal in caliber with moderate atherosclerosis. Mild left basilar scarring. T12-L1: No central canal or neural foraminal narrowing. L1-L2: Posterior disc osteophyte complex and facet arthrosis causing mild central canal and mild bila teral neural foraminal narrowing. L2-L3: Posterior disc osteophyte complex and facet arthrosis causing mild central canal, moderate ri ght and mild left neural foraminal narrowing L3-L4: Posterior disc osteophyte complex and facet arthrosis causing mild to moderate central canal, moderate to severe right and mild left neural foraminal narrowing. L4-L5: Posterior disc osteophyte complex and facet arthrosis causing mild central canal, mild right and moderate to severe left neural foraminal narrowing. L5-S1: Posterior disc osteophyte complex and facet arthrosis without central canal or neural foramin al narrowing IMPRESSION: 1. No fracture. 2. Chronic discogenic degenerative disease and facet arthrosis. Please see segmental analysis, noti ng central canal and neural foraminal narrowing.
== END 2017-12-15 12:10 | disposition home or self-care (01) ==
LOC: ED 09:44
DX: S39.012A Strain of muscle, fascia and tendon of lower back, initial encounter (principal); M25.562 Pain in left knee; M25.561 Pain in right knee; M25.552 Pain in left hip; M25.551 Pain in right hip; G89.29 Other chronic pain; W19.XXXA Unspecified fall, initial encounter
CPT/HCPCS: 99282

== ENCOUNTER 2018-01-23 20:22 | Inpatient (IN) ==
[2018-01-23] MEDS ORDERED: LACTATED RINGERS 1,000 ML IV STA (20:35)
--- NOTE | 2018-01-23 20:38 | ED.PDOC ---
General ED Provider: Dr. BRYAN GUSMAN Chief Complaint: Nausea/Vomiting Stated Complaint: Patient is a 77 year old female who comes to the ER with a 3 day history of weakness, dizziness, leg pain bilaterally. She lives alone and has been feeling to weak to feed self. She states that she does not like to get help. Time Seen by Physician: 20:24 Mode of Arrival: Ambulance Information Source: Patient, EMT Primary Care Provider: YUE GOMEZ Nursing and Triage Documentation Reviewed and Agree: Yes Does patient meet sepsis criteria?: No System Inflammatory Response Syndrome: Not Applicable Sepsis Protocol: For patient's 13 years and over: Temp is 96.8 and below OR 101 and greater Pulse >90 BPM Resp >20/minute Acutely Altered Mental Status Are patient's symptoms suggestive of a new infection, such as: -Pneumonia -Skin, Soft Tissue -Endocarditis -UTI -Bone, Joint Infection -Implantable Device -Acute Abdominal Infection -Wound Infection -Meningitis -Blood Stream Catheter Infection -Unknown Neurological Complaint Exam - Weakness Complaint/Exam Last Known Well: 2 weeks ago Onset: Gradual Duration: constant Symptoms Are: Still present Timing: Constant Initial Severity: Moderate Current Severity: Severe Character: Reports: Room spinning, Lightheaded Aggravating: Reports: Position change, Supine to erect Alleviating: Reports: Rest Associated Signs and Symptoms: Reports: Nausea, Vomiting (x 2 today ) Related History: Similar episode Cardiac Risk Factors: Reports: None CVA Risk Factors: Reports: None Related Surgical History: Reports: None JVD Present: No Carotid Bruit Present: No Rectal Heme Positive: No Glascow Coma Scale (see protocol): 15 Nystagmus Present: No Gag Reflex Present: No Meningeal Signs Positive: No Focal Weakness: Present: None Focal Sensory Loss: Present: None Gait: Normal [id number]: Normal Findings Romberg Test Positive: No Babinski Sign: Negative Right, Negative Left Heel to Toe Normal: No Tierra-Hallpike Test Positive: No Differential Diagnoses: BPPV, Hypovolemia Quality Indicator For Non-Traumatic Chest Pain/Syncope: EKG Performed Review of Systems - Review Of Systems Constitutional: Reports: No symptoms Eyes: Reports: No symptoms Ears, Nose, Mouth, Throat: Reports: No symptoms Respiratory: Reports: No symptoms Cardiac: Reports: Lightheadedness GI: Reports: No symptoms : Reports: No symptoms Musculoskeletal: Reports: No symptoms Skin: Reports: No symptoms Neurological: Reports: Anxiety Endocrine: Reports: No symptoms Hematologic/Lymphatic: Reports: No symptoms All Other Systems: Reviewed and Negative Past Medical History - Past Medical History Endocrine: Reports: None Cardiovascular: Reports: Hypertension Respiratory: Reports: None Hematological: Reports: None Gastrointestinal: Reports: None Genitourinary: Reports: None Neuro/Psych: Reports: None Musculoskeletal: Reports: Arthritis Cancer: Reports: None Last Menstrual Period: none - Surgical History General Surgical History: Reports: Hysterectomy (BLADDER SUSPENSION), , Orthopedic (BILAT KNEE REPLACEMENT, ), Other (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) - Family History Family History: Reports: Unknown - Social History Smoking Status: Never smoker Hx Substance Use: No Alcohol Screening: Occasionally Physical Exam - Physical Exam Appearance: Ill-appearing, Well-nourished Eyes: JACLYN, EOMI, Conjunctiva clear ENT: Ears normal, Nose normal, Oropharynx normal Respiratory: Airway patent, Breath sounds clear, Breath sounds equal, Respirations nonlabored Cardiovascular: RRR, Pulses normal, No rub, No murmur GI/: Soft, Nontender, No masses, Bowel sounds normal, No Organomegaly Musculoskeletal: Normal strength, ROM intact, No edema, No calf tenderness Skin: Warm, Dry, Normal color Neurological: Sensation intact, Motor intact, Reflexes intact, Cranial nerves intact, Alert, Oriented Psychiatric: Anxious Interpretation - Radiology Interpretation Radiology Interpretation By: ED Physician Radiology Results: Negative Exam Interpreted: Portable CXR - Addiction Medicine Physician Rate: Normal Rhythm: Sinus Ectopy: None - EKG Interpretation Time of EKG #1: 20:43 Rate: Normal Rhythm: Sinus Ectopy: None [place]: NL Interpretation: Accelerated Junctional Rhythm Critical Care Note - Critical Care Note Total Time (mins): 0 Course - Course Hematology/Chemistry: 01/23/18 20:56 01/23/18 20:56 Orders, Labs, Meds: Lab Review 01/23/18 01/23/18 01/23/18 20:56 20:56 20:56 WBC 10.08 RBC 3.96 L Hgb 12.0 Hct 35.8 L MCV 90.4 MCH 30.3 MCHC 33.5 RDW Coeff of [place] 12.0 Plt Count 138 L Immature Gran % (Auto) 0.3 Neut % (Auto) 75.1 Lymph % (Auto) 16.4 [place] % (Auto) 6.7 Eos % (Auto) 1.1 Baso % (Auto) 0.4 Immature Gran # (Auto) 0.0 Neut # (Auto) 7.6 H Lymph # (Auto) 1.7 [place] # (Auto) 0.7 Eos # (Auto) 0.1 Baso # (Auto) 0.0 Sodium 137 Potassium 4.1 Chloride 103 Carbon Dioxide 21 L Anion Gap 17.1 BUN 28 H Creatinine 1.49 H Estimated GFR (MDRD) 34.00 BUN/Creatinine Ratio 18.79 Glucose 90 Lactic Acid Calcium 9.6 Total Bilirubin 0.6 AST 12 L ALT 7 L Alkaline Phosphatase 78 Total Creatine Kinase 41 Troponin I 0.0110 B-Natriuretic Peptide 34 Total Protein 6.7 Albumin 3.5 Globulin 3.2 Albumin/Globulin Ratio 1.09 Procalcitonin 01/23/18 01/23/18 20:56 20:56 WBC RBC Hgb Hct MCV MCH MCHC RDW Coeff of [place] Plt Count Immature Gran % (Auto) Neut % (Auto) Lymph % (Auto) [place] % (Auto) Eos % (Auto) Baso % (Auto) Immature Gran # (Auto) Neut # (Auto) Lymph # (Auto) [place] # (Auto) Eos # (Auto) Baso # (Auto) Sodium Potassium Chloride Carbon Dioxide Anion Gap BUN Creatinine Estimated GFR (MDRD) BUN/Creatinine Ratio Glucose Lactic Acid 7.1 Calcium Total Bilirubin AST ALT Alkaline Phosphatase Total Creatine Kinase Troponin I B-Natriuretic Peptide Total Protein Albumin Globulin Albumin/Globulin Ratio Procalcitonin 0.06 Orders Category Date Time Status EKG-(ED ONLY) Stat CARDIO 01/23/18 20:34 Completed ACTIVITY .Early Mobilization for VTE Prevention CARE 01/23/18 22:52 Ordered INTAKE & OUTPUT Q8HR CARE 01/23/18 22:52 Ordered VITAL SIGNS Q4HR CARE 01/23/18 22:52 Ordered REGULAR DIET DIETARY 01/23/18 Breakfast Ordered ED SR. UNIX SYSTEM ADMINISTRATOR APPLIED .ONCE EMERGENCY 01/23/18 20:34 Active ED ORTHOSTATIC VITAL SIGNS .ONCE EMERGENCY 01/23/18 20:35 Active B-TYPE NATRIURETIC PEPTIDE Stat LAB 01/23/18 20:56 Completed CBC W/ AUTO DIFF DAILY@0600 LAB 01/24/18 06:00 Ordered CBC W/ AUTO DIFF DAILY@0600 LAB 01/25/18 06:00 Ordered CBC W/ AUTO DIFF Stat LAB 01/23/18 20:56 Completed COMPREHENSIVE METABOLIC PANEL DAILY@0600 LAB 01/24/18 06:00 Ordered COMPREHENSIVE METABOLIC PANEL DAILY@0600 LAB 01/25/18 06:00 Ordered COMPREHENSIVE METABOLIC PANEL Stat LAB 01/23/18 20:56 Completed CREATINE KINASE Q8H LAB 01/24/18 05:00 Ordered CREATINE KINASE Q8H LAB 01/24/18 13:00 Ordered CREATINE KINASE Stat LAB 01/23/18 20:56 Completed LACTIC ACID Stat LAB 01/23/18 20:56 Completed PROCALCITONIN Stat LAB 01/23/18 20:56 Completed TROPONIN I Q8H LAB 01/24/18 05:00 Ordered TROPONIN I Q8H LAB 01/24/18 13:00 Ordered TROPONIN I Stat LAB 01/23/18 20:56 Completed UA [URINALYSIS C & S IF INDICATED] Stat LAB 01/23/18 21:37 Uncollected Aspirin [Aspirin Chewable] MEDS 01/24/18 09:00 Ordered 81 mg PO DAILY Bisoprolol Fumarate [Zebeta] MEDS 01/24/18 09:00 Ordered 5 mg PO DAILY Enoxaparin Sodium [Lovenox] MEDS 01/24/18 09:00 Ordered 40 mg SUBCUT DAILY Escitalopram Oxalate [Lexapro] MEDS 01/24/18 09:00 Ordered 20 mg PO DAILY Ferrous Sulfate [Iron] MEDS 01/24/18 09:00 Ordered 325 mg PO BID Gabapentin [Neurontin] MEDS 01/24/18 21:00 Ordered 300 mg PO BEDTIME Pantoprazole Sodium [Protonix] MEDS 01/24/18 09:00 Ordered 40 mg PO DAILY Ringers Lactated Solution [Lactated Ringers] 1,000 ml MEDS 01/23/18 20:35 Discontinued IV BOLUS Sodium Chloride 0.9% [Sodium Chloride] 1,000 ml MEDS 01/23/18 23:00 Ordered IV 125 mls/hr Sodium Chloride 0.9% [Sodium Chloride] 1,000 ml MEDS 01/23/18 21:09 Discontinued IV BOLUS Tramadol HCl [Ultram] MEDS 01/23/18 22:55 Ordered 50 mg PO BID PRN Trazodone HCl [Desyrel] MEDS 01/24/18 21:00 Ordered 50 - 100 mg PO BEDTIME RESUSCITATION STATUS Routine OTHERS 01/23/18 22:52 Ordered CHEST, 1V AP ONLY Stat RADS 01/23/18 20:34 Taken PT CONSULT Routine THERAPIES 01/23/18 Ordered Medications Generic Name Dose Route Start Last Admin Trade Name Mark PRN Reason Stop Dose Admin Aspirin 81 mg 01/24/18 09:00 Aspirin Chewable PO DAILY [facility] Bisoprolol Fumarate 5 mg 01/24/18 09:00 Zebeta PO DAILY [facility] Enoxaparin Sodium 40 mg 01/24/18 09:00 Lovenox SUBCUT DAILY [facility] Escitalopram Oxalate 20 mg 01/24/18 09:00 Lexapro PO DAILY FARRUKH Gabapentin 300 mg 01/24/18 21:00 Neurontin PO BEDTIME FARRUKH Sodium Chloride 1,000 mls @ 125 mls/hr 01/23/18 23:00 Sodium Chloride IV .Q8H FARRUKH Non-Formulary Medication 325 mg 01/24/18 09:00 Ferrous Sulfate [Iron] PO BID FARRUKH Pantoprazole Sodium 40 mg 01/24/18 09:00 Protonix PO DAILY FARRUKH Tramadol HCl 50 mg 01/23/18 22:55 Ultram PO BID PRN severe pain Trazodone HCl 50 - 100 mg 01/24/18 21:00 Desyrel PO BEDTIME [facility] Discontinued Medications Generic Name Dose Route Start Last Admin Trade Name Mark PRN Reason Stop Dose Admin Lactated Ringer's 1,000 mls @ 1,000 mls/hr 01/23/18 20:35 01/23/18 21:03 Lactated Ringers IV 01/23/18 21:34 1,000 mls/hr BOLUS STA Administration Sodium Chloride 1,000 mls @ 1,000 mls/hr 01/23/18 21:09 01/23/18 22:12 Sodium Chloride IV 01/23/18 22:08 1,000 mls/hr BOLUS STA Administration Vital Signs: Temp Pulse Resp BP Pulse Ox 01/23/18 20:43 103 H 110/85 01/23/18 20:42 101 H 152/96 H 01/23/18 20:23 98.3 F 102 H 18 166/102 H 96 Departure - Departure Time of Disposition: 22:59 Disposition: ADMITTED INPATIENT Discharge Problem: Orthostatic dizziness Leg weakness Qualifiers: Laterality: bilateral Qualified Code(s): R29.898 - Other symptoms and signs involving the musculoskeletal system Condition: Stable Pt referred to PMD for follow-up: No IPMP verified?: No Allergies/Adverse Reactions: Allergies sulfamethoxazole [From Bactrim] Adverse Reaction (Verified 01/23/18 20:29) trimethoprim [From Bactrim] Adverse Reaction (Verified 01/23/18 20:29) Home Medications: Ambulatory Orders Aspirin 81 mg PO DAILY 03/15/17 Bisoprolol Fumarate [Zebeta] 5 mg PO DAILY 03/15/17 Gabapentin [Neurontin] 300 mg PO BEDTIME 03/15/17 Losartan/Hydrochlorothiazide [Hyzaar 100-12.5 Tablet] 1 each PO DAILY 03/15/17 Pantoprazole Sodium [Protonix] 40 mg PO DAILY 03/15/17 Trazodone HCl 1 - 2 tab PO BEDTIME 03/15/17 Escitalopram Oxalate [Lexapro] 20 mg PO DAILY 05/14/17 Ferrous Sulfate [Iron] 325 mg PO BID 05/14/17 Tramadol HCl [Ultram] 50 mg PO BID PRN 05/14/17 Ibuprofen [Motrin] 600 mg PO Q6H PRN #20 tablet 12/15/17 Transfer Form Completed: No Disposition Discussed With: Patient
[2018-01-23] MEDS ORDERED: SODIUM CHLORIDE 1,000 ML IV STA (21:09)
[2018-01-23] MEDS ORDERED: ULTRAM PO PRN (22:55)
[2018-01-23] MEDS: SODIUM CHLORIDE 1,000 ML IV SCH (23:33)
[2018-01-24 01:05] VITALS: BMI 26.9
[2018-01-24] MEDS: SODIUM CHLORIDE 1,000 ML IV SCH ×2 (07:07→17:01)
--- NOTE | 2018-01-24 07:47 | DI ---
EXAM: Chest one view HISTORY: Cough COMPARISON: 05/14/2017 TECHNIQUE: Single view of the chest was performed FINDINGS: Mild chronic elevation right hemidiaphragm. The lungs are clear. There is no pleural eff usion or pneumothorax. The heart is normal in size. The mediastinal contour is normal, noting ather osclerosis. There are no acute abnormalities of the bones. IMPRESSION: No acute cardiopulmonary process.
[2018-01-24] MEDS: ZEBETA PO SCH (08:17)
[2018-01-24] MEDS: ASPIRIN CHEWABLE PO SCH (08:17)
[2018-01-24] MEDS: FERROUS SULFATE PO SCH ×2 (08:17→20:26)
[2018-01-24] MEDS: PROTONIX PO SCH (08:17)
[2018-01-24] MEDS: LEXAPRO PO SCH (08:17)
[2018-01-24] MEDS: LOVENOX SUBCUT SCH (08:18)
[2018-01-24] MEDS ORDERED: NON-FORMULARY MEDICATION (Ferrous Sulfate [Iron] 325 MG) PO SCH (09:00)
--- NOTE | 2018-01-24 11:24 | RS.OTINEVL ---
Subjective - Patient information Date of Evaluation: 01/24/18 Date of Arrival on Unit: 01/24/18 Admitted From:: Emergency Dept Usual Living Arrangement: Alone Living Arrangement Comments: Lives at home alone in town. Patient has 3 steps to enter home at her home. Home Environment: House, Stairs (few) Medical History: Hypertension Medical History Comments:: Depression, Reflux, diverticulosis, cardiac, HTN, unsteady on feet. 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 Pt had some help of shopping from her brother. Pt was walking without a walker and was able to go to the [employer] to get a few things. Current Level of Function: Partially Dependent Current Equipment Used at Home: walker( does not use) Pain Assessment - Pain Pain Score: 2 Side: bilateral Pain Location Body Site: Knee Pain Aggravating Factors: Changing Position, Standing Pain Alleviating Factors: Medication Interventions - Objective Patient Orientation: Person, Place, Situation Current Interventions: IV's, Telemetry Observation: Patient is weak in her legs. Pt moves very slow when ambulating with a RW. Pt appears anxious intermittently. Interventions - ROM Right Upper Extremity AROM: WFL's Left Upper Extremity AROM: WFL's - Strength Right Upper Extremity Strength: Mild Weakness Left Upper Extremity Strength: Mild Weakness - Sensation Right Upper Extremity Sensation: Intact/Normal Left Upper Extremity Sensation: Intact/Normal Balance - Sitting Balance Static Sitting Balance: Fair Dynamic Sitting Balance: Fair - Standing Balance Static Standing Balance: Fair Dynamic Standing Balance: Fair ADL Skills - Self Feeding Self Feeding: Independent - Grooming Grooming: CGA - Bathing Bathing UE: CGA Bathing LE: CGA - Dressing Dressing UE: CGA Dressing LE: CGA - Toilet Management Toileting Management: CGA Functional Mobility - Bed Mobility Rolling R/L: Independent Scooting: Independent Supine to Sit: Min Assist Sit to Supine: Min Assist - Transfers Sit to Stand: CGA Stand to Sit: CGA Stand Pivot Transfers: CGA - Ambulation Weight Bearing Status: FWB Assistive Device Used: Rolling Walker Assistance needed with Ambulation: CGA - Safety Awareness Safety Awareness: Good MILLICENT INDEX SCORE: . Additional Treatment Performed - Time with patient Length of Evaluation: 22 Total treatment time: 22 Activities Do you have difficulty with your vision?: No Patient Interests:: Watching Television Patient Education Patient Education: Education of diagnosis, Home Exercise Program, Education of Plan of Care Teaching Recipient: Patient Teaching Methods: Discussion Assessment Problem List:: Decreased level of function, Requires training/education, Decreased safety/Risk of falls, Weakness Rehab Potential: Good Further Therapy Indicated?: Yes Evaluation Complexity: HISTORY: Medium, EXAM OF BODY SYSTEMS: Medium, CLINICAL DECISION MAKING: Medium Short Term Goals - Goals GOAL 1: Pt to tolerate 15 minutes of standing activity with rests PRN. Goal to be met by: 01/27/18 GOAL 2: Pt to tolerate sink level ADLS SUP assistance with RW. Goal to be met by: 01/27/18 GOAL 3: Pt to be independent with ADLS as in PLOF. Goal to be met by: 01/27/18 Progress towards goal: Partially Met Comments: Equip to be installed in home for safety. Long-Term Goals GOAL 1: Pt to tolerate 20 minutes of standing activity with rests PRN. Goal to be met by: 01/31/18 GOAL 2: Pt to tolerate sink level ADLS SUP assistance with RW. Goal to be met by: 01/31/18 GOAL 3: Pt to be independent with ADLS as in PLOF. Goal to be met by: 01/31/18 Plan Plan of Care: Therapeutic EX, Neuromuscular Re-Educ, Therapeutic Activity, Self- Care/Home Management Frequency of Treatment: 1-2 X day, as tolerated Duration of Treatment: 1 Week Anticipated Discharge Destination: Home Treatment Diagnosis (ICD 10 Codes): Muscle Weakness M62.81 Has the Physician been added for Co-signature?: Yes
--- NOTE | 2018-01-24 14:05 | RS.PTINEVL ---
Subjective - Patient information Date of Evaluation: 01/24/18 Date of Arrival on Unit: 01/23/18 Admitted From:: Home Diagnosis: hypotension, weakness Usual Living Arrangement: Alone Living Arrangement Comments: Lives at home alone in town. Patient has 3 steps to enter home at her home. Home Environment: House, Stairs (few) Medical History: Hypertension, Arthritis (RA) Medical History Comments:: Depression, GERD LATEX ALLERGY?: No Surgical History: Hysterectomy, Mastectomy (B) Surgical History Comments:: , Medications: see chart Subjective Information/ Patient Comments:: pt states that she is feeling tired and weak. pt agrees to walk a short distance and come back to bed. - Level of function Prior to this admission, the patient could do the following:: Independent Selfcare (prior to last week was independent.), Independent ADL's, Independent Ambulation Current Level of Function: Partially Dependent Current Equipment Used at Home: walker( does not use) Interventions - Objective Patient Orientation: Person, Place, Time Current Interventions: IV's Range of Motion - ROM Right Upper Extremity AROM: WFL's Left Upper Extremity AROM: WFL's Right Lower Extremity AROM: WFL's Left Lower Extremity AROM: WFL's Muscle Strength - Muscle Strength Right Upper Extremity Strength: Mild Weakness (grossly 4-/5) Left Upper Extremity Strength: Mild Weakness (grossly 4-/5) Right Lower Extremity Strength: Mild Weakness (hip flex 4-/5, knee flex/ext 4-/5 , ankle Df/PF 4-/5) Left Lower Extremity Strength: Mild Weakness (hip flex 4-/5, knee flex/ext 4-/5 , ankle Df/PF 4-/5) Sensation - Sensation Right Upper Extremity Sensation: Intact/Normal Left Upper Extremity Sensation: Intact/Normal Right Lower Extremity Sensation: Impaired Left Lower Extremity Sensation: Impaired Comments: n/t B knees Palpation Palpation Findings: Tenderness (BLE) Balance - Sitting Balance and Reactions Static Sitting Balance: Good Dynamic Sitting Balance: Fair Sitting Equilibrium Reactions: Delayed Left, Delayed Right Sitting Protective Reactions: Delayed Left, Delayed Right - Standing Balance and Reactions Static Standing Balance: Poor Dynamic Standing Balance: Poor Standing Equilibrium Reactions: Delayed Left, Delayed Right Standing Protective Reactions: Delayed Left, Delayed Right Functional Mobility - Bed Mobility Rolling R/L: CGA Scooting: CGA Supine to Sit: CGA Sit to Supine: CGA - Transfers Sit to Stand: CGA - Safety Awareness Safety Awareness: Good MILLICENT INDEX SCORE: n/a Ambulation - Ambulation Assistive Device Used: Rolling Walker Orthotic/Prosthetic Device: No Distance: 20ft Assistance needed with Ambulation: CGA, 1 person assist Quality of Ambulation: pt amb CGA x1 + 1 for IV Gait Deviations: Forward posture, Short stride Factors Affecting Ambulation: Decreased Balance, Weakness, Decreased Safety, Limited Endurance Treatment time - Time with patient Length of Evaluation: 27 Total treatment time: 27 Patient Education - Education Patient Education: Activity Modification, Education of Plan of Care Teaching Recipient: Patient Teaching Methods: Discussion (discussion with patient regarding POC and safety and importance of participating in PT to improve strength) Assessment - Assessment Problem List:: Decreased level of function, Requires training/education, Decreased safety/Risk of falls, Weakness Rehab Potential: Good Further Therapy Indicated?: Yes Candidate for Swing Bed for Therapy Services?: Do not feel pt would be candidate for swing bed due to lack of motivation and frequent refusals of PT Evaluation Complexity: HISTORY: Medium (htn, RA, h/o falls), EXAM OF BODY SYSTEMS: Medium (gait, transfers, strength, balance), CLINICAL PRESENTATION: Medium (evolving), CLINICAL DECISION MAKING: Medium Short Term Goals GOAL #1: pt demonstrate independence with rolling and bridging. Goal to be met by: 01/27/18 GOAL #2: pt transfer sup to/from sit to/from stand CGA Goal to be met by: 01/27/18 GOAL #3: pt amb with rwx 50ft with CGA with no LOB Goal to be met by: 01/27/18 Halfway Goals GOAL #1: pt transfer sup to/from sit to/from stand independently Goal to be met by: 01/30/18 GOAL #2: pt amb with rwx 100ft with SBA with no LOB Goal to be met by: 01/30/18 GOAL #3: pt with improved strength BLE 4 to 4+/5 Goal to be met by: 01/30/18 Plan Plan of Care: Therapeutic EX, Therapeutic Activity Other:: gait training Frequency of Treatment: 1-2 X day, as tolerated Duration of Treatment: 6 days Anticipated Discharge Destination: Home Treatment Diagnosis (ICD 10 Codes): R26.81 balance unsteady. R26.2 difficulty walking. M62.81 weakness Has the Physician been added for Co-signature?: Yes
[2018-01-24] MEDS ORDERED: DEXTROSE 5%-LR IV SOLUTION 1,000 ML IV SCH (16:30)
[2018-01-24] MEDS: NEURONTIN PO SCH (20:26)
[2018-01-24] MEDS: DESYREL PO SCH (20:27)
--- NOTE | 2018-01-24 23:08 | CT ---
Exam: CT of the abdomen and pelvis without contrast History: Abdominal pain Technique: [address] of the abdomen and pelvis without intravascular contrast FINDINGS: The lung bases are clear aside from dependent atelectasis. No significant liver abnormalit y. The adrenals, pancreas and spleen are unremarkable. Question circumferential distal esophagus thic kening. 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 The distal ureter is not dilated. Normal left kidney and collecting system. No urolithiasi s is seen. The appendix is not seen. Circumferential colonic thickening is suspected without erika lonic inflammation. Prior hysterectomy. Distended urinary bladder. No pelvic fat inflammation. Nondistended sigmoid co teena with questionable circumferential thickening and no pericolonic inflammation. No acute abnormali ties of the skeleton are seen. Impression: 1. Mild right hydronephrosis with duplicated collecting system. Hydronephrosis may be secondary to reflux from urinary retention and distended urinary bladder. No urolithiasis or other obstructing et iology is seen. 2. Possible hendrix colonic wall thickening greatest in the transverse and left colonic segments. No pe ricolonic inflammation. Correlate for colitis symptoms. 3. The distal esophagus thickening versus small hiatus hernia
[2018-01-25] MEDS: D5%-1/2NS-KCL 20 MEQ/L IV SOL 1,000 ML IV SCH ×3 (02:39→22:52)
[2018-01-25] MEDS: PROTONIX PO SCH (05:38)
[2018-01-25] MEDS: FERROUS SULFATE PO SCH ×2 (09:03→21:23)
[2018-01-25] MEDS: ASPIRIN CHEWABLE PO SCH (09:03)
[2018-01-25] MEDS: ZEBETA PO SCH (09:04)
[2018-01-25] MEDS: LEXAPRO PO SCH (09:04)
[2018-01-25] MEDS: LOVENOX SUBCUT SCH (09:05)
--- NOTE | 2018-01-25 09:45 | PCM.PROG ---
Attending Provider: ATTENDING PROVIDER: Dr. Justyn UGALDE This patient is seen with Gem Gomez, Nurse Practitioner. DATE OF SERVICE: 01/25/18 SUBJECTIVE: This 77 year old WHITE/ F was hospitalized 01/23/18. The patient is alert, lying in bed. Through the night the patient became incontinent of both bowel and bladder, which is not normal for her. She has history of L-spine injections and sees Dr. Lane. CTof abdomen showed right hydronephrosis and duplicate collecting systems. REVIEW OF SYSTEMS: CONSTITUTIONAL: Leg weakness. No night sweats. No malaise, lethargy. No fever or chills. HEENT: Eyes: No visual changes. No eye pain. No eye discharge. ENT: No runny nose. No epistaxis. No sinus pain. No odynophagia. No congestion. RESPIRATORY: No cough, no congestion. No hemoptysis. No shortness of breath. CARDIOVASCULAR: No angina symptoms. No CHF symptoms. No atypical chest pain for CAD. No palpitations. No orthopnea.. GASTROINTESTINAL: No abdominal pain. No nausea or vomiting. Fecal incontinence. No hematemesis. No hematochezia. GENITOURINARY: Incontinence. MUSCULOSKELETAL: No musculoskeletal pain; no joint swelling. NEUROLOGICAL: Awake, alert, oriented to time, place and person. No headache. No neck pain. No syncope. No seizures. No dizziness. PSYCHIATRIC: Not anxious. No depression. No suicidal thoughts. No homicidal thoughts. SKIN: No rash. No lesions. No wounds. ENDOCRINE: No unexplained weight loss. No weight gain. HEMATOLOGIC/LYMPHATIC: No anemia. No purpura. No petechiae. No prolonged or excessive bleeding. No palpable lymph nodes. PHYSICAL EXAMINATION: GENERAL: The patient is awake, alert and oriented, lying in bed in no distress. VITAL SIGNS: Temperature 98.8 F, Pulse 65, Respiratory Rate 15, BP 124/65, Pulse Ox 96% HEENT: Head normocephalic, atraumatic. Eyes: Extraocular muscles are intact. Pupils are equal, round and reactive to light and accommodation. Ears: No lesions. Nose appeared normal. Throat: No exudate or erythema. NECK: Supple. No JVD, no carotid bruit. No lymphadenopathy or thyromegaly. LUNGS: Diminished breath sounds. Clear to auscultation. Percussion note normal. Chest symmetrical. HEART: S1, S2, no S3. No murmurs. No cyanosis or clubbing. No ascites. Pulses: Dorsalis pedis and posterior tibial pulses +1 to +2 both sides. ABDOMEN: Soft. Non-tender. Bowel sounds active. No CVA tenderness. No mass felt. EXTREMITIES: No edema. Full range of motion of all extremities, equal. NEUROLOGIC: No focal deficit. Cranial nerves II through XII are grossly intact. No headache, no double vision or headache. SKIN: Not dry. Intact. Turgor-normal. LYMPHATIC: No palpable lymph nodes/no lymphedema. MUSCULOSKELETAL: Normal joints with no swelling. Muscle tone is normal. LAB REVIEW: 01/25/18 04:30 01/25/18 04:30 01/25/18 04:30: Sodium 138, Potassium 3.8, Chloride 109 H, Carbon Dioxide 23, Anion Gap 9.8, BUN 15, Creatinine 1.15, Estimated GFR (MDRD) 46.00, BUN/ Creatinine Ratio 13.04, Glucose 148 H D, Calcium 8.7, Total Bilirubin 0.4, AST 10 L, ALT 6 L, Alkaline Phosphatase 62, Total Protein 5.1 L, Albumin 2.6 L, Globulin 2.5, Albumin/Globulin Ratio 1.04 01/25/18 04:30: WBC 12.85 H, RBC 3.53 L, Hgb 10.7 L, Hct 32.5 L, MCV 92.1, MCH 30.3, MCHC 32.9, RDW Coeff of [place] 12.0, Plt Count 122 L, Immature Gran % (Auto) 0.4, Neut % (Auto) 80.3, Lymph % (Auto) 11.4, [place] % (Auto) 7.2, Eos % (Auto) 0.5, Baso % (Auto) 0.2, Immature Gran # (Auto) 0.1, Neut # (Auto) 10.3 H, Lymph # (Auto) 1.5, [place] # (Auto) 0.9, Eos # (Auto) 0.1, Baso # (Auto) 0.0 01/24/18 12:55: Total Creatine Kinase 48, Troponin I < 0.0100 01/24/18 06:00: TSH 1.633 ASSESSMENT: 1. LEG WEAKNESS 2. URINARY AND FECAL INCONTINENCE 3. RIGHT HYDRONEPHROSIS 4. HISTORY OF FALLS 5. DJD L-SPINE PLAN: 1. Continue PT/OT 2. Dr. Ugalde to continue to evaluate Plan and coordination of the patient's care discussed in the presence of Quality Process Lead and nurse. CONDITION: Stable SCRIBED BY: YANA HAZEL [employer] Picker scribed while in presence of service performed by Dr. Teixeira/Gem Gomez APRN on 01/25/18 ([id number])
[2018-01-25] MEDS: DESYREL PO SCH (21:23)
[2018-01-25] MEDS: NEURONTIN PO SCH (21:23)
[2018-01-26] MEDS: PROTONIX PO SCH (06:11)
[2018-01-26] MEDS: D5%-1/2NS-KCL 20 MEQ/L IV SOL 1,000 ML IV SCH ×2 (09:19→18:29)
[2018-01-26] MEDS: ZEBETA PO SCH (09:20)
[2018-01-26] MEDS: FERROUS SULFATE PO SCH ×2 (09:20→21:07)
[2018-01-26] MEDS: LEXAPRO PO SCH (09:20)
[2018-01-26] MEDS: ASPIRIN CHEWABLE PO SCH (09:21)
[2018-01-26] MEDS: LOVENOX SUBCUT SCH (09:21)
--- NOTE | 2018-01-26 10:26 | HP ---
DATE OF SERVICE: 01/23/18 CHIEF COMPLAINT: Nausea, vomiting, lower extremity weakness. No food intake in the last few days since she was not able to get up to get food. HISTORY OF PRESENT ILLNESS: The patient was brought to the emergency room by ambulance. The patient was alert, responsive with movement of all extremities. The patient's vital signs in the emergency room showed a temperature of 98.3, pulse 102, respiratory rate 18, oxygen saturation 96% on room air. Blood pressure 166/102. Pain was described as 0 on a scale of 1 to 10. The patient had some borderline anemia 12 gm hemoglobin, 35.8 hematocrit. RBC 3.96 million. MCV 90.4, MCH 30.3. Platelet count 138,000. EGFR 34, BUN 28, creatinine 1.49. Electrolytes normal. Troponin was normal and BNP 34. The rest were unremarkable. Chest x-ray - no acute cardiopulmonary processes. The patient was admitted because of the nausea and vomiting as well as the extreme weakness of both lower extremities and the inability to be self sufficient at home. The patient had been to physical therapy evaluation on 02/09/17. The patient did undergo physical therapy 2 to 3 times a week for four weeks. It was because of lower extremity weakness that she landed in physical therapy. On 03/15/17, the patient was admitted to the hospital with a final diagnosis of leg weakness, chronic renal failure, bilateral sciatica. The patient had an MRI of the lumbar spine during that admission and was described to have a 27 degree levoscoliosis centered at L2 and L3 of the thoracolumbar spine. On 05/14/18, the patient again was admitted to the hospital because of severe back pain. She had CT scan of the pelvis and lumbar spine showing no fractures, no acute problems. She did have some foraminal stenosis. She did fall on 12/15/17 and was seen at the emergency room and had x-rays of the knees, right and left side and lumbar CT. The patient had moderate to severe narrowing of the foramen left side. She was discharged from that visit. PAST PERSONAL HISTORY: The patient was hypertensive, restless leg syndrome, anemia, tachyarrhythmia consisting of PVCs and PACs, history of osteoarthritis knees, history of diverticulosis, history of dysphagia, history of chronic kidney disease, Stage 4 , bilateral breast implants revised 3 years ago because of leakage, levoscoliosis of the lumbar and thoracic spine, centered on L2, L3 and moderate foraminal stenosis by MRI and the patient had previous hysterectomy plus appendectomy. She had one section and had bilateral knee replacement, bilateral breast implant. FAMILY HISTORY: Father had no obvious hereditary disease as well as mother. SOCIAL HISTORY: The patient is a , resides alone. She has one son that is quite a ways from here. She has several brothers or siblings in this community. She does not smoke now. No alcoholic beverages. MEDICATIONS: (PRIOR TO ADMISSION) Trazodone 50 mg tablet 1 to 2 at bedtime Protonix 40 mg daily Gabapentin 300 mg at bedtime Zebeta 5 mg daily Ferrous Sulfate 325 mg twice a day Tramadol 50 mg twice a day Lexapro 20 mg daily Ibuprofen 600 mg q.hr p.r.n. prescribed 12/15/17 ALLERGIES: BACTRIM REVIEW OF SYSTEMS: CONSTITUTIONAL: The patient had no fever, no chills but has fatigue. Had not been eating for the last few days because of the inability to get to the kitchen. BLENDING OPERATOR: The patient denies any headaches or any visual disturbances. She has not had a syncopal episode. She had fallen several times but because of the weakness of both lower extremities. VISUAL: Denies any diplopia, loss of vision, blurred vision or hemianopsia. AUDITORY: The patient is able to hear. Denies any tinnitus, pain or drainage. RESPIRATORY: The patient denies any shortness of breath with usual exertion at home. No cough. No hemoptysis. CARDIOVASCULAR: Denies any chest tightness or pain. No diaphoresis and no weakness. GASTROINTESTINAL: The patient had nausea and vomited on the day of presentation to the emergency room. Denies any significant abdominal pain. No blood in the stool and no diarrhea. GENITOURINARY: The patient is incontinent of urine. She denies any pain on urination. MUSCULOSKELETAL: The patient had bilateral knee replacement, total with significant weakness of both lower extremities that she is not able to stand alone. She is not able to walk from one place to the next. INTEGUMENT: Denies any rash or pruritus and no subcutaneous ecchymosis. ENDOCRINE: Negative. HEMATOLOGIC: No history of prolonged bleeding. No ecchymosis. PSYCHIATRIC: Affect was flat on admission. She did answer questions. Answers were appropriate. PHYSICAL EXAMINATION: GENERAL: 77-year-old female admitted to the hospital because of extreme weakness in both lower extremities and recurrent falls. VITAL SIGNS: On admission to the emergency room was temperature 98.3, pulse 102 , BP 166/102, respiratory rate 18, oxygen saturation 96 on room air. HEAD: Unremarkable. Face is symmetrical and equal, somewhat pale but no cyanosis and no weakness. No remarkable tenderness to palpation and/or pressure on the frontomaxillary sinus areas. EYES: Pupils equal/reactive to light about 3 mm in size and somewhat pale. Sclerae nonicteric. MOUTH: Unremarkable. THROAT: No inflammation, tumors or exudate. NECK: No masses. No adenopathy. No bruit. No rigidity. CHEST: Symmetrical and equal with good expansion. BREASTS: The patient has implants on both sides. Scars are noted. There are no palpable masses in the breast. The implant was revised some three years ago. LUNGS: Breath sounds are heard on both sides with a few clicks both lung garcia slightly more on the left side. No wheezing. HEART: Audible and regular with good tones. ABDOMEN: Scar from previous surgery. The patient had some tenderness in the upper abdomen with no significant muscular guarding. Bowel sounds are active. No masses palpable. EXTERNAL GENITALIA: Not examined. PELVIC/RECTAL: Not performed. It will be done during this hospitalization. LOWER EXTREMITIES: Essentially symmetrical and equal with no significant edema. Pedal pulses, anterior tibials are palpable. Difficult to find the posterior tibials. UPPER EXTREMITIES: Symmetrical and equal. ASSESSMENT: 1. SEVERE WEAKNESS BOTH LOWER EXTREMITIES, ETIOLOGY UNDETERMINED. 2. RECURRENT FALLS BECAUSE OF THE ABOVE - #1. 3. MODERATE TO SEVERE FORAMINAL STENOSIS. 4. HISTORY OF CHRONIC KIDNEY DISEASE STAGE 3 OR 4. 5. HISTORY OF BILATERAL BREAST IMPLANTS. 6. HISTORY OF RESTLESS LEG SYNDROME. MTDD
--- NOTE | 2018-01-26 10:28 | PN ---
DATE OF SERVICE: 01/24/18 SUBJECTIVE: The patient's vital signs showed a temperature of 98.4, pulse 76, blood pressure 142/76, respiratory rate 18, oxygen saturation 94 at room air. The patient had some tenderness in the upper quadrant mostly on the left subcostal area. There was no muscular guarding, bowel sounds are active. Because of the tenderness however the patient was felt to need a CAT of the abdomen and pelvis to visualize any abnormalities that may cause the discomfort or pain. CT scan of the abdomen and pelvis on 01/24/18 mild right hydronephrosis with duplicating collecting system. Hydronephrosis maybe secondary to reflux from urinary retention and distended urinary bladder. There is possible pain colonic wall thickening greatest in the transverse and left colonic segments, No pericolonic inflammation. Correlate with symptoms of colitis. The distal esophagus is also thickening. This patient had not had a colonoscopy or endoscopy it's time for her to get one. I would discuss that with her but then the office of Dr. Teixeira will have to make all these arrangements since that will be made as an outpatient. CBC on 01/24/18 showed normal WBC count, severe anemia 10.8 gram hgb, 36.6 hct, MCV 92.8, MCH is 29.8, RDW is 11.9. The GFR today is 43 with a BUN 24 and creatinine 1.22. The liver panel were normal on admission and remained normal. The Troponin remained normal on repeat. Total protein with hydration is below normal 5.6. Albumin 2.9, TSH 1.633. Urinalysis showed 2+ ketones, 1+ blood in the urine, positive nitrates, leukocyte esterase 3+, WBC 10-20, squamous cells 5-10, 3+ bacteria. This patient has receiving Rocephin which began at the emergency room by the ER physician. Cause of the extreme weakness lower extremities is not quite apparently at this time. The patient denies any alcohol use. The chronic use of the PPI's maybe this patient may have some B12 deficiency. We will get a Serum B12 and then probably homocysteine level and a methylmalonic acid. MTDD
--- NOTE | 2018-01-26 11:09 | PN ---
DATE OF SERVICE: 01/25/18 SUBJECTIVE: The patient today is alert and oriented times four. The patient's bladder was distended however the patient is catheterized today and she already had 100cc of urine. She is incontinent of urine. She is being seen by physical therapy and will compare the evaluation of this patient from that of 2016 and see what the difference is. It doesn't seem that this patient has a neuromuscular disease that produces the weakness. There is no history in the family. VITAL SIGNS: Temperature of 97.8, pulse 66, blood pressure 132/70, respiratory rate 18, oxygen saturation 97 at 2liters. Her oxygen saturation last night did go down to 88 at room air. The patient's WBC did go up to 12,850 reason unknown. Hgb and hct is about the same. The BUN is now normal at 15 and creatinine is 1.15 and GFR is 46 estimated. Repeat urinalysis today midstream catheterized showed a trace of ketones, no blood, nitrate positive, trace of leukocyte esterase, WBC 5-10, squamous cells not present, bacteria 3+. We are waiting for culture preliminary cultures showed heavy growth from gram negative rods probably e-coli. I don't understand the report. It is colony count 0, growth no growth and down below is colony count 100,000 growth heavy, gram negative rods. I need to talk to the lab with this. The patient's appetite is still poor consuming only 25% of dinner. She refused dinner yesterday. Again this patient probably needs to have a colonoscopy and endoscopy. JOAQUIM
--- NOTE | 2018-01-26 12:05 | RS.SLPCNOT ---
Speech Case Note Date of Note: 01/26/18 Title: Speech Consult with education Note: The FLAKER TENDER went into the pt's room to question reported swallowing difficulty. Pt reported difficulty with swallowing dry bread textures (corn bread, guyanese muffins.) She stated she began wearing dentures approximately a year ago. Post dentures she noted increased difficulty with swallowing. The FLAKER TENDER provided verbal education on swallowing compensation with effortful swallow, double swallow, and liquid wash. Diet modifications were educated as well. The FLAKER TENDER demonstrated a swallow exercise to be completed independently. The FLAKER TENDER provided written instructions and education for the patient.
[2018-01-26] MEDS: DIFICID PO SCH ×2 (12:36→21:06)
[2018-01-26] MEDS: FLORASTOR PO SCH ×2 (12:37→21:08)
[2018-01-26] MEDS: NEURONTIN PO SCH (21:08)
[2018-01-26] MEDS: DESYREL PO SCH (21:09)
[2018-01-27] MEDS: PROTONIX PO SCH (05:48)
[2018-01-27] MEDS: D5%-1/2NS-KCL 20 MEQ/L IV SOL 1,000 ML IV SCH (05:48)
[2018-01-27] MEDS: LEXAPRO PO SCH (08:59)
[2018-01-27] MEDS: DIFICID PO SCH (08:59)
[2018-01-27] MEDS: FLORASTOR PO SCH (09:00)
[2018-01-27] MEDS: FERROUS SULFATE PO SCH (09:00)
[2018-01-27] MEDS: ZEBETA PO SCH (09:01)
[2018-01-27] MEDS: LOVENOX SUBCUT SCH (09:01)
[2018-01-27] MEDS: ASPIRIN CHEWABLE PO SCH (09:18)
--- NOTE | 2018-01-27 14:23 | MRI ---
EXAM: Lumbar spine MRI without contrast. HISTORY: Numbness and weakness in both lower extremities. COMPARISON: Lumbar spine CT scan 12/15/2017 and lumbar spine MRI 03/15/2017. TECHNIQUE: Multiplanar, multisequence MR images were acquired lumbar spine without contrast. FINDINGS: Conus medullaris ends at L1-2 and has normal morphology and signal intensity pre canal olaf meter is developmentally narrow. There is 21 degrees rotatory thoracolumbar levoscoliosis centered a t L2-3 and minor compensatory dextroscoliosis at L4-5. There is loss of the usual smooth lumbar lord osis and there is 3 mm retrolisthesis of L1 on L2, 2 mm retrolisthesis of L2 on L3 and and a trace an terolisthesis of L3 on L4. The lumbar vertebra are generally normal in height. Intrinsic bone marro w signal is mildly heterogeneous with small areas of increased fatty marrow infiltration. Benign int raosseous hemangiomas are present at T10, T11, L2 and L3. 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 There is desiccation of the intervertebral discs with vacuum phenomenon from L1-2 through L 4-5. There is mild to moderate degenerative spondylosis from L1-2 to L4-5. The partially visualized liver, spleen and left kidney are unremarkable. 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 There are no paravertebral masses. L1-2: There is retrolisthesis of L1 on L2 and a diffuse disc bulge with moderate right anterolateral endplate osteophytes and mild bilateral facet arthropathy and ligamentum flavum hypertrophy. This c auses moderate stenosis at the entry to both neural foramina with encroachment on the descending L1 n erves. There is no central canal stenosis. L2-3: There is a diffuse disc bulge that is asymmetric to the right with a small right posterolatera l disc extrusion with inferior migration that encroaches on the right L3 nerve roots and moderate rig ht lateral/far lateral endplate osteophytes that encroach on the exiting right L2 nerve. There is ma rked right lateral disc space narrowing, mild to moderate endplate irregularity with small chronic Sc hmorl's nodes and mild modic type 1 endplate changes. Mild to moderate bilateral hypertrophic facet arthropathy and ligamentum flavum hypertrophy is present. This causes moderate right and mild left n eural foraminal stenosis. L3-4: There is a diffuse spondylotic disc bulge that is asymmetric to the right with small right far lateral endplate osteophytes that encroach on the right L3 nerve exiting the neural foramen. Moderat e bilateral hypertrophic facet arthropathy and ligamentum flavum hypertrophy and a small left facet e ffusion is present. This produces triangulation of the thecal sac with mild spinal stenosis and mild left and mild to moderate right foraminal stenosis. AP diameter of the thecal sac is 9.2 mm. L4-5: There is a diffuse disc osteophyte complex that is asymmetric to the left which contacts both anterior L5 nerve roots and the exiting left L4 nerve. Moderate left and mild right hypertrophic fac et arthropathy and ligamentum flavum hypertrophy is present. There is a small right facet effusion. There is mild right and moderate left neural foraminal stenosis with encroachment on the left L4 ner ve. L5-S1: There is a minor disc bulge and mild bilateral hypertrophic facet arthropathy and ligamentum flavum hypertrophy, greater on the left. A small synovial cyst is present posterior to the left face t joint. There is no central canal stenosis or foraminal stenosis. IMPRESSION: 1. 21 degrees rotatory thoracolumbar levoscoliosis centered at L2-3 and minor compensatory dextrosco liosis at L4-5. 2. Moderate multilevel degenerative spondylosis with mild central canal stenosis at L3-4. 3. Multilevel foraminal stenosis.
[2018-01-27] MEDS ORDERED: VITAMIN B-12 IM SCH (15:00)
[2018-01-27 17:45] VITALS: BP 106/68; TEMP 97.9
--- NOTE | 2018-01-30 09:09 | PTDC ---
Date of Evaluation:01/23/18 Diagnosis:[HYPOTENSION, WEAKNESS] Number of visits:[] Last Date of Service:[01/27/18] Reason For Discharge:[DC TO [facility]] Discharge Summary:[PATIENT PROGRESS LIMITED DUE TO FREQUENT REFUSALS TO PARTICIPATE IN THERAPY. PATIENT DID IMPROVE TO AMB 7FFT WITH RWX WITH CGA X 1 + 1 FOR IV. PATIENT CONTINUES WITH DECREASED STRENGTH, BALANCE WELL DECREASED ENDURANCE. PATIENT DID MAKE PROGRESS TOWARD GOALS. MTDD
--- NOTE | 2018-02-14 10:59 | PN ---
DATE OF SERVICE: 01/26/18 SUBJECTIVE: The patient was positive for Clostridium Difficile in stool. This patient has been treated with Dificid 200 mg twice a day or every 12 hours plus Florastor, probiotic 250 mg twice a day. This patient will be treated for a total of 10 days. I would just leave it to the primary care provider to follow. This patient was planning on going to a assisted in [place] since her brother is there. OBJECTIVE: The patient is alert and responsive and oriented. Vital Signs at 6 p.m. 01/26/18 showed a temperature of 98, pulse 65, blood pressure 119/80, respiratory rate 20, oxygen saturation 96 on 2L. No labs were done today. The patient did eat 50% of her meals. The patient's motor strength both lower extremities are symmetrical and equal. Good strength on flexion and dorsiflexion of the foot. I am not certain as to the reason for the lower extremity weakness. She claimed that it began about three years ago. B12 is 867, homocytsteine is 11.6, within normal. TSH is normal at 1.633. Procalcitonin 0.06. Copper is 0.96 mcg, normal. There are three urine cultures, one 01/24/18 and 01/25/18. 01/24 report final showed colony count 0 growth, no growth and below that is colony count greater than 100,000, growth - heavy growth - type Gram Negative Rods, ID E. coli, senstivity to all medications listed including Ampicillin Clavulinate and Ampicillin. Urine culture on 01/25/18 showed greater than 100,000 colony count, heavy growth gram negative rods, E. coli sensitivity the same. Again, I don't know on 01/24 there was no growth and no colony count. Is that an error? [facility]
--- NOTE | 2018-02-20 14:04 | DS ---
DATE OF SERVICE: 01/27/18 PATIENT IDENTIFICATION: 77 year old female who lives alone was brought to the emergency room via ambulance because of nausea, vomiting and extreme weakness. This patient had not been able to eat for the last three days since she could not get to her kitchen because of lower extremity weakness. This weakness began when she was 74 years of age. She had been to Dr. Teixeira and had a work up. HOSPITAL COURSE: The patient's physical examination showed the patient alert, oriented times four. Not dyspneic, nor tachypneic. VITAL SIGNS: On admission showed a temperature of 98.3, pulse 102, blood pressure 166/102, respiratory rate 18, oxygen saturation 96 at room air. BREASTS: The patient on examination had bilateral breast implants and had been revised some three years ago. There are no masses palpable. LUNGS: The patient has a few clicks on both lung garcia. No wheezing. HEART: Audible and regular with good tones. ABDOMEN: Had scar from previous surgery. Tenderness in the upper abdomen, but no muscular guarding. Bowel sounds are active. No bruit. LOWER EXTREMITIES: Symmetrical and equal with good flexion and dorsal flexion of the leg, toe and foot. Pedal pulses and anterior tibials present. Difficult to find the posterior tibials. The patient while in the hospital was initially given 1000 cc's of Lactated Ringers of a bolus in the emergency room and IV of sodium chloride solution 125 cc per hour. She was continued on her medications from home consisting of Losartan, Hydrochlorothiazide, Ferrous sulfate 325 mg twice daily, Pantoprazole daily, Lexapro 20 mg daily, Trazodone 50 mg to 100 mg at bedtime, Zebeta 5 mg daily, Gabapentin 300 mg at bedtime and Ibuprofen 600 mg every 6 hours prn. The patient was continued on the IV fluids with electrolyte replacement and the sodium chloride was changed to Dextrose 5% 1/2 saline, plus 20 of KCL at 100 cc per hour and repeated. The patient had serial CBC times four, which showed normal WBC, except for one occasion on 01/25/2018. The WBC did rise to 12,850 with the reason undetermined. Her hemoglobin was more or less borderline normal on admission and since then had reduced to 10.8 and 10.7 and 10.7. The platelet count was slightly lower at 138 on admission and did go day to 119 and then lucio to 128 on discharge. The electrolytes sodium, potassium and chloride were acceptable throughout the hospital stay and the CO2 was 21 on admission and did rise to 25 on discharge. BUN 28 on admission, creatinine 1.49 and GFR was 34. On discharge, the BUN was 8, creatinine was 1.10 and the E GFR was 48. Liver panel remained normal and the total protein was acceptable on admission, but with hydration the total protein went down to as low as 5.1 and 2.6 Albumin. Serum B12 was 867. Homocystine 11.6. Procalcitonin on admission is 0.06. Initial chest x-ray at the emergency room on 01/23/2018 showed no acute cardiopulmonary processes. Lumbar MRI abnormal showing 21 degrees of rotatory thoracolumbar levoscoliosis centered at L2-3 and minor compensatory dextroscoliosis at L4-5. It is more or less the same findings of the previous MRI. Moderate multilevel degenerative spondylosis with mild central canal stenosis at L3-L4. Multilevel foraminal stenosis. I don't know if this the reason for the weakness of both lower extremities. B12 is normal and the homocystine level is within normal limits and not likely to be the reason for the weakness or neuropathy in both lower legs. The patient did undergo Physical Therapy and Occupational Therapy while in the hospital. The coordinating nurse told me that she was willing to go to [facility]. I did talk to the patient with regards to this and indeed she was willing to go to [facility], more so that one brother is in the [facility]. The patient's vital signs throughout the hospital stay remained stable and she remained afebrile. 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 Hydronephrosis was felt to be secondary to the urinary retention. This patient was catheterized after voiding and the patient had only 100 cc of residual. She also had colonic wall thickening greatest at the transverse colon and the left ascending colon. With these the patient probably needs a colonoscopy. Thickening of the distal esophagus versus small hiatal hernia. Again this patient should probably need an endoscopy, as well as colonoscopy to make some determination of the abnormalities noted on CT. The patient at the time was discharge was alert with movement of all extremities. I tested the strength of the feet and dorsal flexion of the big toe and foot and both were symmetrical and equal. There was no sensory difference between the right and the left side. The legs do not show any atrophy. The patient while in the hospital was noted to have a positive clostridium difficile and was treated with Dificid 200 mg twice a day and will be continued for the next nine days [facility] at the [facility] unless the patient presents some adverse effects from the medication. This patient also while in the hospital was given Lovenox 40 mg subcutaneously. She was advised at the time of admission that she needs to move her legs since a blood clot sometimes would still form even after hospitalization. LUNGS: Clear to auscultation although diminished. HEART: Normal sinus rhythm. ABDOMEN: No remarkable tenderness. VITAL SIGNS: At 5:45 p.m. just before discharge showed a temperature of 97.9, pulse 67, blood pressure 106/68, respiratory rate 18, oxygen saturation 96 at room air. Blood pressure was fluctuating and the blood pressure at 10 a.m. on the day of discharge showed 115/63 and before that was 148/77. The oxygen saturation remained between 96 and 97 at room air. There were times that it was 94. PLAN: The patient is then discharged today with the following instructions: 1. See Dr. Teixeira next week. Call his office. 2. Continue Aspirin. 3. B12 injection 1000 mcg daily. 4. Dificid 200 mg twice a day for 9 days. 5. Probiotic 250 mg orally twice a day. 6. Continue the following: Bisoprolol, Lexapro, Ferrous Sulfate, Gabapentin, Pantoprazole, Tramadol, Trazodone. 7. The patient also was given Florastor 250 mg twice a day and she should continue until Dr. Teixeira decides to discontinue the mediation. FINAL DIAGNOSES: 1. NAUSEA AND VOMITING, ETIOLOGY UNDETERMINED, RESOLVED. 2. NARROWING OF THE DISTAL ESOPHAGUS, NOT COMPLETELY OBSTRUCTING AND MUCOSAL THICKENING OF THE COLON, MID AND ASCENDING COLON. PROBABLY NEEDS ENDOSCOPY AND COLONOSCOPY. 3. CLOSTRIDIUM DIFFICILE COLITIS 4. HYPERTENSION, CONTROLLED 5. ANEMIA 6. HISTORY OF DEPRESSION 7. BILATERAL LOWER EXTREMITY WEAKNESS, ETIOLOGY UNDETERMINED 8. CHRONIC KIDNEY DISEASE STAGE III 9. BILATERAL BREAST IMPLANTS 10. HISTORY OF RESTLESS LEG SYNDROME PROGNOSIS: Guarded. TIME SPENT: GREATER THAN 30 MINUTES MTDD
== END 2018-01-27 18:10 | DRG 372 ==
LOC: ED 20:22 → MEDSURG B 23:52
PROVIDERS: ADMIT General Practice; ATTEND General Practice
DX: A04.72 Enterocolitis due to Clostridium difficile, not specified as recurrent (principal); N13.30 Unspecified hydronephrosis; N18.3 Chronic kidney disease, stage 3 (moderate); R42 Dizziness and giddiness; R32 Unspecified urinary incontinence; R53.1 Weakness; R29.898 Other symptoms and signs involving the musculoskeletal system; R15.9 Full incontinence of feces; M79.605 Pain in left leg; M79.604 Pain in right leg; M47.9 Spondylosis, unspecified; F41.9 Anxiety disorder, unspecified; K22.2 Esophageal obstruction; I10 Essential (primary) hypertension; D64.9 Anemia, unspecified
CPT/HCPCS: 36415; 80053; 81001; 82525; 82550; 82607; 83090; 83605; 83880; 84145; 84443; 84484; 85025; 87086; 87186; 87493; 93005; 93010; 96360; 96361; 99285